=== PATIENT | female | born 1935 | race Caucasian/White ===

== ENCOUNTER 2022-10-28 12:27 | Emergency (ER) | payer MEDICARE, BC, SELFPAY ==
[2022-10-28] VITALS (12 sets, daily range): BP systolic 161–188; BP diastolic 92–96; PULSE 78–97; RESP 18; TEMP 36.4; O2SAT 93–99; BMI 31.6
--- NOTE | 2022-10-28 13:00 | PC.NURSE ---
pt to bathroom with via wheelchair, feeling pretty weak, attempted to obtain urine but pt had watery diarrhea. States she thinks the diarrhea may have started yesterday. Denies any discomfort, fevers or chills.
--- NOTE | 2022-10-28 13:18 | ED.GENADULT ---
HPI - General Adult General Chief complaint: Weakness Stated complaint: Lightheaded, weak Time Seen by Provider: 10/28/22 13:00 History of Present Illness HPI narrative: 87-year-old woman presenting to the emergency department with complaint of ?I just don't feel good?. She is maybe feeling a little lightheaded. Not dizzy. No headache. No fever. No shortness of breath. No abdominal pain. She has noticed to have diarrhea here and on further recollection she admits that will maybe that was going on since yesterday. She has been feeling generally unwell starting yesterday as well. No particular sick contacts. No recent antibiotics. Denies history of heart failure. She says her blood sugars been okay. No dysuria frequency urgency. Does apparently have a history of supraventricular tachycardia however has not been feeling irregular heartbeats or any chest pain. Related Data Home Medications Medication Instructions Recorded Confirmed amlodipine 2.5 mg tablet 2.5 mg PO 06/24/22 10/06/22 aspirin 81 mg tablet,delayed 81 mg PO QDAY 06/24/22 10/06/22 release glyburide 1.25 mg tablet 1.25 mg PO 06/24/22 10/06/22 levothyroxine 100 mcg tablet 100 mcg PO 06/24/22 10/06/22 memantine 5 mg tablet 5 mg PO 06/24/22 10/06/22 metformin 500 mg tablet,extended mg PO 06/24/22 10/06/22 release 24 hr [id number] 250 mg-dha 90 1 cap PO QAM 06/24/22 10/06/22 mg-epa 160 gu-ennt-szqf-zeax capsule (Ocuvite Adult 50 Plus) pravastatin 20 mg tablet 20 mg PO 06/24/22 10/06/22 Allergies Allergy/AdvReac Type Severity Reaction Status Date / Time hydrochlorothiazide AdvReac Headache Verified 10/06/22 15:53 Review of Systems Status of ROS: Reports: 6 or more systems reviewed and unremarkable except as noted in History and below [facility] Medical History Diverticulitis Right foot injury (~2003) Supraventricular tachycardia Thyroid cancer Surgical History H/O thyroidectomy History of carpal tunnel surgery of left wrist (~1990) History of carpal tunnel surgery of right wrist (~1988) Social History Smoking Status: Never smoker How often do you have a drink containing alcohol: monthly or less AUDIT-C Alcohol total score: 1 Non-prescribed substance use: denies use service: No Exam Narrative: Exam Narrative: Pleasant. NAD. Seems to be a little distracted. Maybe a little difficulty with recall. Cranial nerves 2-12 look to be intact. Moving all extremities without difficulty. Does appear a little tired. Well perfused peripherally. There is trace pretibial pitting edema. Lungs are clear. Is breathing easily. Heart with elevated rate appears to be in a regular rhythm. EKG noted though to have PACs. Oropharynx is moist. Abdomen overweight soft very active bowel sounds. Nontender. Not tympanitic. Const: Vital Signs, click to edit/add: Vital Signs - 24 hr 10/28/22 12:53 Temperature 97.6 F Pulse Rate [Pulse Oximeter] 95 Respiratory Rate 18 Blood Pressure [Ri ght Upper Arm] 161/96 H Pulse Oximetry 96 Oxygen Delivery Me thod Room Air Documenting provider has reviewed patient's vital signs: yes Course Vital Signs Vital signs: Initial Vital Signs Temperature 97.6 F 10/28/22 12:53 Temperature Source Temporal Artery Scan 10/28/22 12:53 Pulse Rate 95 10/28/22 12:53 Respiratory Rate 18 10/28/22 12:53 Blood Pressure 161/96 H 10/28/22 12:53 Blood Pressure Mean 117 10/28/22 12:53 Blood Pressure Position Supine 10/28/22 12:53 Pulse Oximetry 96 10/28/22 12:53 Oxygen Delivery Method 10/28/22 12:53 Vital Signs Temperature 97.6 F 10/28/22 12:53 Pulse Rate 95 10/28/22 12:53 Respiratory Rate 18 10/28/22 12:53 Blood Pressure 161/96 H 10/28/22 12:53 Pulse Oximetry 96 10/28/22 12:53 Oxygen Delivery Method 10/28/22 12:53 Temperature 97.6 F 10/28/22 12:53 Pulse Rate 97 10/28/22 15:06 Respiratory Rate 18 10/28/22 12:53 Blood Pressure 188/95 H 10/28/22 15:06 Pulse Oximetry 97 10/28/22 15:06 Oxygen Delivery Method 10/28/22 12:53 Medical Decision Making MDM Narrative Medical decision making narrative: She isn't reporting any hematochezia or melanotic stools. This diarrhea is evidence today might to be a reason for weakness representing some sort of viral process. Will be screening for this. Also check hemoglobin monitor on psychiatric technician assistant. Hydrate with IV fluids labs reassuring, unremarkable After IVF and period of observation in the ER seems more energetic and reports feeling much better. Lab Data Lab results reviewed: Yes I reviewed the patient's lab results Labs: Lab Results 10/28/22 10/28/22 10/28/22 Range/Units 13:08 13:45 13:45 WBC 11.19 H (4.50-11.00) K/uL RBC 4.40 (4.00-5.20) m/uL Hgb 13.6 (12.0-16.0) gm/dL Hct 40.6 (33.0-51.0) % MCV 92 (80-100) fL MCH 31 (26-34) pg MCHC 34 (32-36) gm/dL RDW Coeff of David 12.2 (11.5-15.5) % Plt Count 271 (140-440) K/uL Neut % (Auto) 69.4 (42.0-72.0) % Lymph % (Auto) 21.0 (20-44) % [place] % (Auto) 8.0 (0.0-11.0) % Eos % (Auto) 1.1 (0.0-7.0) % Baso % (Auto) 0.3 (0.0-3.0) % Neut # (Auto) 7.80 H (1.7-7.0) K/uL Lymph # (Auto) 2.30 (0.90-2.90) K/uL [place] # (Auto) 0.90 (0.00-0.90) K/UL Eos # (Auto) 0.10 (0.00-0.50) K/uL Baso # (Auto) 0.00 (0.00-0.30) K/uL Sodium (135-149) mmol/L Potassium (3.6-5.1) mmol/L Chloride (96-114) mmol/L Carbon Dioxide (20-32) mmol/L BUN (7-30) mg/dL Creatinine (0.5-1.5) mg/dL Estimated Creat Clear Estimated GFR ml/min Glucose (60-115) mg/dL Calcium (8.4-10.6) mg/dL Magnesium (1.5-2.6) mg/dL Total Bilirubin 1.1 (0.1-1.5) mg/dL Direct Bilirubin 0.1 (0.0-0.5) mg/dL AST 27 (12-35) U/L ALT 26 (4-35) U/L Alkaline Phosphatase 60 (40-150) U/L Troponin I (0.01-0.04) ng/mL C-Reactive Protein < 0.5 L (0.5-1.0) mg/dL NT-Pro-B Natriuret Pep pg/mL Total Protein 7.8 (6.0-8.3) g/dL Albumin 4.5 (3.3-5.0) g/dL TSH (0.270-4.20) uIU/mL Urine Color (Yellow) Urine Appearance (Clear) Urine pH (5.0-8.5) Ur Specific [place] (1.000-1.030) Urine Protein (Negative) Urine Glucose (UA) (Negative) Urine Ketones (Negative) Urine Blood (Negative) Urine Nitrite (Negative) Urine Bilirubin (Negative) Urine Urobilinogen (0.2-1.0) Ur Leukocyte Esterase (Negative) Urine RBC (0-2) Urine WBC (0-5) Ur Squamous Epith Cells (None-Few) Urine Bacteria (None) SARS-CoV-2 (PCR) Negative SARS-CoV-2 (Negative) Influenza Type A (PCR) Negative PCR FLU A (Negative) Influenza Type B (PCR) Negative PCR FLU B (Negative) RSV (PCR) Negative PCR RSV (Negative) POC Troponin I (0.01-0.04) ng/ml 10/28/22 10/28/22 10/28/22 Range/Units 13:45 13:45 14:00 WBC (4.50-11.00) K/uL RBC (4.00-5.20) m/uL Hgb (12.0-16.0) gm/dL Hct (33.0-51.0) % MCV (80-100) fL MCH (26-34) pg MCHC (32-36) gm/dL RDW Coeff of David (11.5-15.5) % Plt Count (140-440) K/uL Neut % (Auto) (42.0-72.0) % Lymph % (Auto) (20-44) % [place] % (Auto) (0.0-11.0) % Eos % (Auto) (0.0-7.0) % Baso % (Auto) (0.0-3.0) % Neut # (Auto) (1.7-7.0) K/uL Lymph # (Auto) (0.90-2.90) K/uL [place] # (Auto) (0.00-0.90) K/UL Eos # (Auto) (0.00-0.50) K/uL Baso # (Auto) (0.00-0.30) K/uL Sodium 135 (135-149) mmol/L Potassium 4.1 (3.6-5.1) mmol/L Chloride 100 (96-114) mmol/L Carbon Dioxide 28 (20-32) mmol/L BUN 21 (7-30) mg/dL Creatinine 0.6 (0.5-1.5) mg/dL Estimated Creat Clear 31.94 Estimated GFR 87 ml/min Glucose 157 H (60-115) mg/dL Calcium 9.7 (8.4-10.6) mg/dL Magnesium 1.7 (1.5-2.6) mg/dL Total Bilirubin (0.1-1.5) mg/dL Direct Bilirubin (0.0-0.5) mg/dL AST (12-35) U/L ALT (4-35) U/L Alkaline Phosphatase (40-150) U/L Troponin I < 0.01 L (0.01-0.04) ng/mL C-Reactive Protein (0.5-1.0) mg/dL NT-Pro-B Natriuret Pep 38 pg/mL Total Protein (6.0-8.3) g/dL Albumin (3.3-5.0) g/dL TSH 1.230 (0.270-4.20) uIU/mL Urine Color (Yellow) Urine Appearance (Clear) Urine pH (5.0-8.5) Ur Specific [place] (1.000-1.030) Urine Protein (Negative) Urine Glucose (UA) (Negative) Urine Ketones (Negative) Urine Blood (Negative) Urine Nitrite (Negative) Urine Bilirubin (Negative) Urine Urobilinogen (0.2-1.0) Ur Leukocyte Esterase (Negative) Urine RBC (0-2) Urine WBC (0-5) Ur Squamous Epith Cells (None-Few) Urine Bacteria (None) SARS-CoV-2 (PCR) (Negative) Influenza Type A (PCR) (Negative) Influenza Type B (PCR) (Negative) RSV (PCR) (Negative) POC Troponin I 0.00 L (0.01-0.04) ng/ml 10/28/22 Range/Units 15:00 WBC (4.50-11.00) K/uL RBC (4.00-5.20) m/uL Hgb (12.0-16.0) gm/dL Hct (33.0-51.0) % MCV (80-100) fL MCH (26-34) pg MCHC (32-36) gm/dL RDW Coeff of David (11.5-15.5) % Plt Count (140-440) K/uL Neut % (Auto) (42.0-72.0) % Lymph % (Auto) (20-44) % [place] % (Auto) (0.0-11.0) % Eos % (Auto) (0.0-7.0) % Baso % (Auto) (0.0-3.0) % Neut # (Auto) (1.7-7.0) K/uL Lymph # (Auto) (0.90-2.90) K/uL [place] # (Auto) (0.00-0.90) K/UL Eos # (Auto) (0.00-0.50) K/uL Baso # (Auto) (0.00-0.30) K/uL Sodium (135-149) mmol/L Potassium (3.6-5.1) mmol/L Chloride (96-114) mmol/L Carbon Dioxide (20-32) mmol/L BUN (7-30) mg/dL Creatinine (0.5-1.5) mg/dL Estimated Creat Clear Estimated GFR ml/min Glucose (60-115) mg/dL Calcium (8.4-10.6) mg/dL Magnesium (1.5-2.6) mg/dL Total Bilirubin (0.1-1.5) mg/dL Direct Bilirubin (0.0-0.5) mg/dL AST (12-35) U/L ALT (4-35) U/L Alkaline Phosphatase (40-150) U/L Troponin I (0.01-0.04) ng/mL C-Reactive Protein (0.5-1.0) mg/dL NT-Pro-B Natriuret Pep pg/mL Total Protein (6.0-8.3) g/dL Albumin (3.3-5.0) g/dL TSH (0.270-4.20) uIU/mL Urine Color Yellow (Yellow) Urine Appearance Clear (Clear) Urine pH 6.5 (5.0-8.5) Ur Specific [place] 1.015 (1.000-1.030) Urine Protein Negative (Negative) Urine Glucose (UA) Negative (Negative) Urine Ketones Negative (Negative) Urine Blood Negative (Negative) Urine Nitrite Negative (Negative) Urine Bilirubin Negative (Negative) Urine Urobilinogen 0.2 (0.2-1.0) Ur Leukocyte Esterase Negative (Negative) Urine RBC 0-2 (0-2) Urine WBC 0-2 (0-5) Ur Squamous Epith Cells None (None-Few) Urine Bacteria None (None) SARS-CoV-2 (PCR) (Negative) Influenza Type A (PCR) (Negative) Influenza Type B (PCR) (Negative) RSV (PCR) (Negative) POC Troponin I (0.01-0.04) ng/ml ECG Data Attestation: I personally reviewed and interpreted this ECG as follows: (Sinus rhythm at a rate of 88. PACs are evident ) Discharge Plan Discharge Clinical Impression: Malaise, Dehydration, Enteritis Patient Disposition: Home w/ Parent or Adult Condition: Improved Additional Instructions: You do seem to have much more energy now. This may be because you were a little dehydrated. Focus on hydration. Might want to have more of liquid diet over the next 24-36 hours. Diluted juices, soup broths then to thicker soups and smoothies maybe rice. [place]. Return for increasing weakness, associated fever, chest pain, shortness of breath, increasing abdominal pain, intractable diarrhea. Prescriptions: No Action levothyroxine 100 mcg tablet 100 mcg PO glyburide 1.25 mg tablet 1.25 mg PO amlodipine 2.5 mg tablet 2.5 mg PO metformin 500 mg tablet extended release 24 hr PO pravastatin 20 mg tablet 20 mg PO Ocuvite Adult 50 Plus 250 mg (90 mg-160 mg) capsule 1 cap PO QAM memantine 5 mg tablet 5 mg PO aspirin 81 mg tablet,delayed release (DR/EC) 81 mg PO QDAY Follow Up/Referrals: Marcia Campa DO [Primary Care Provider] - Stand Alone [facility] Inst[facility]
[2022-10-28 13:53] LABS: Basophils Percent Auto 0.3 % (0.0-3.0); Eosinophils Percent Auto 1.1 % (0.0-7.0); Hematocrit 40.6 % (33.0-51.0); Hemoglobin* 13.6 gm/dL (12.0-16.0); Immature Granulocytes Pct Auto 0.2 %; Mean Corpuscular HGB Conc 34 gm/dL (32-36); Mean Corpuscular Hemoglobin 31 pg (26-34); Mean Corpuscular Volume 92 fL (80-100); Neutrophils Percent Auto 69.4 % (42.0-72.0); Platelet Count* 271 K/uL (140-440); RDW Coefficient of Variation % 12.2 % (11.5-15.5); White Blood Count* 11.19 K/uL (4.50-11.00)
[2022-10-28] MEDS: 0.9 % SODIUM CHLORIDE 1000 ml 1,000 ML IV (13:58)
[2022-10-28 14:02] LABS: PCR FLU A Negative PCR FLU A (Negative); PCR FLU B Negative PCR FLU B (Negative); PCR RSV Negative PCR RSV (Negative)
[2022-10-28 14:09] LABS: Slide Review Reflex No
[2022-10-28 14:13] LABS: SARS PCR* Negative SARS-CoV-2 (Negative)
[2022-10-28 14:30] LABS: Albumin* 4.5 g/dL (3.3-5.0); Chloride* 100 mmol/L (96-114); Sodium* 135 mmol/L (135-149)
[2022-10-28 14:31] LABS: Potassium* 4.1 mmol/L (3.6-5.1)
[2022-10-28 14:33] LABS: Alanine Aminotransferase* 26 U/L (4-35); Alkaline Phosphatase* 60 U/L (40-150); Aspartate Amino Transferase* 27 U/L (12-35); Bilirubin Direct* 0.1 mg/dL (0.0-0.5); Bilirubin Total* 1.1 mg/dL (0.1-1.5); Creatinine* 0.6 mg/dL (0.5-1.5); Est. Creatinine Clearance* 31.94; Estimated Glomerular Filt Rate 87 ml/min; Total Protein* 7.8 g/dL (6.0-8.3)
[2022-10-28 14:34] LABS: Blood Urea Nitrogen* 21 mg/dL (7-30); Calcium* 9.7 mg/dL (8.4-10.6); Carbon Dioxide* 28 mmol/L (20-32); Glucose* 157 mg/dL (60-115); Magnesium* 1.7 mg/dL (1.5-2.6)
[2022-10-28 14:36] LABS: C Reactive Protein* < 0.5 mg/dL (0.5-1.0)
[2022-10-28 14:41] LABS: NT Pro B Type NatriureticPept* 38 pg/mL
[2022-10-28 14:42] LABS: Troponin I* < 0.01 ng/mL (0.01-0.04)
--- NOTE | 2022-10-28 14:49 | ED.NURSE ---
Updated resident's daughter, Diana, regarding her visit and complaints of weakness per request of patient. Diana appreciated the phone call. Will call her after final work up and recommendations are made. Diana will update her brother to see if he can check in or stay with her if she were to discharge home. Short term memory loss noted is her baseline.
[2022-10-28 15:11] LABS: Appearance Urine Clear (Clear); Bilirubin Urine Negative (Negative); Blood Urine Negative (Negative); Color Urine Yellow (Yellow); Glucose Urine Negative (Negative); Ketones Urine Negative (Negative); Leukocyte Esterase Urine Negative (Negative); Nitrite Urine Negative (Negative); Protein Urine Negative (Negative); Specific Gravity Urine 1.015 (1.000-1.030); Urobilinogen Urine 0.2 (0.2-1.0); pH Urine 6.5 (5.0-8.5)
[2022-10-28 16:07] LABS: RBC Urine 0-2 (0-2); WBC Urine 0-2 (0-5)
== END 2022-10-28 17:07 | disposition home or self-care (01) ==
PROVIDERS: Emergency Provider Family Medicine; PCP Family Medicine
DX: R53.81 Other malaise (principal); E86.0 Dehydration; K52.9 Noninfective gastroenteritis and colitis, unspecified
CPT/HCPCS: 36415; 80048; 80076; 81001; 83735; 83880; 84443; 84484; 85025; 86140; 87502; 87634; 87635; 93005; 94761; 96360; 99284; J7030

== ENCOUNTER 2022-12-23 10:34 | Emergency (ER) | payer MEDICARE, BC, SELFPAY ==
[2022-12-23] VITALS (14 sets, daily range): BP systolic 136–150; BP diastolic 76–82; PULSE 63–95; RESP 18; TEMP 36.7; O2SAT 92–96; BMI 32.0
--- NOTE | 2022-12-23 11:16 | CRLHL7_ITS ---
For Patients: As a result of the Century Cures Act, medical imaging exams and procedure reports are released immediately into your electronic medical record. You may view this report before your referring provider. If you have questions, please contact your health care provider. INDICATION: Cough TECHNIQUE: Chest 2 views. COMPARISON: 06/09/2013 FINDINGS: Cardiovascular and mediastinum: Heart size and vasculature are normal in caliber and appearance. Mediastinum is within normal limits. Lungs and pleural spaces: Lungs are clear. No sign of infiltrate or mass. No sign of pleural effusion. No pneumothorax. Bones and soft tissues: Degenerative changes thoracic spine. IMPRESSION: No evidence for pneumonia. Dictated by Danilo Linton MD @ 12/23/2022 11:43:33 AM Dictated by: Danilo Linton MD @ 12/23/2022 11:43:39 (Electronically Signed)
--- NOTE | 2022-12-23 11:16 | ED.GENADULT ---
HPI - General Adult General Chief complaint: Weakness Stated complaint: congestive heart failure - was on the way to dr Time Seen by Provider: 12/23/22 10:55 History of Present Illness HPI narrative: This 87-year-old female comes in with her daughter reporting increased fatigue over the past 4-6 days or so. Her daughter states that she gets short of breath but the patient herself denies this. She did have a clinic appointment and was told that her white count was elevated. She was placed on Levaquin with suspicion of respiratory infection and/or urinary tract infection. Her urinalysis culture returned negative. The chest x-ray report did not show any sign of pneumonia but there was a suspicion of an enlarged heart. She was coming for a follow-up appointment in the clinic to evaluate for congestive heart failure when she again felt fatigued and a brief episode of lightheadedness. She denies having any pain. She does not report any fevers. She does have a cough. She does not describe any orthopnea symptoms. Related Data Home Medications Medication Instructions Recorded Confirmed amlodipine 2.5 mg tablet 2.5 mg PO 06/24/22 10/06/22 aspirin 81 mg tablet,delayed 81 mg PO QDAY 06/24/22 10/06/22 release glyburide 1.25 mg tablet 1.25 mg PO 06/24/22 10/06/22 levothyroxine 100 mcg tablet 100 mcg PO 06/24/22 10/06/22 memantine 5 mg tablet 5 mg PO 06/24/22 10/06/22 metformin 500 mg tablet,extended mg PO 06/24/22 10/06/22 release 24 hr pewlsaeq-bzo-lvpil5 250 mg-dha 90 1 cap PO QAM 06/24/22 10/06/22 mg-epa 160 fi-sfhg-mssh-zeax capsule (Ocuvite Adult 50 Plus) pravastatin 20 mg tablet 20 mg PO 06/24/22 10/06/22 Previous Rx's Medication Instructions Recorded acetaminophen 300 mg-codeine 30 mg 1 tab PO Q6H PRN pain #10 tabs 12/23/22 tablet Allergies Allergy/AdvReac Type Severity Reaction Status Date / Time hydrochlorothiazide AdvReac Headache Verified 12/23/22 10:50 Review of Systems Status of ROS: Reports: 10 or more systems reviewed and unremarkable except as noted in History and below Narrative: Constitutional: No fevers, no weight gain or loss. Generalized fatigue. Eyes: No discharge. No vision changes. HENT: No congestion, no sore throat, no ear pain. Cardiovascular: No chest pain, no palpitations. Respiratory: No shortness of breath, no wheezes . She reports a cough. Gastrointestinal: No abdominal pain, no vomiting, no diarrhea. Genitourinary: No dysuria, no hematuria. Musculoskeletal: Normal range of motion. Skin: No rashes, no pruritis. Neurological: No dizziness, weakness, sensory change, speech change. Endo/Heme/Allergies: No bruising or bleeding. No polydipsia. Pysch: no suicidality, no anxiety, no insomnia. All other systems reviewed and are negative. [facility] Medical History Diverticulitis Right foot injury (~2003) Supraventricular tachycardia Thyroid cancer Surgical History H/O thyroidectomy History of carpal tunnel surgery of left wrist (~1990) History of carpal tunnel surgery of right wrist (~1988) Social History Smoking Status: Never smoker How often do you have a drink containing alcohol: monthly or less AUDIT-C Alcohol total score: 1 Non-prescribed substance use: denies use service: No Exam Narrative: Exam Narrative: Constitutional: Well-developed, well-nourished, no acute distress. HEENT: Normocephalic, atraumatic. Neck: Normal range of motion. Nontender. Supple. Heart: Regular. No murmurs. Normal rate. Intact distal pulses. Lungs: Clear to auscultation. No chest discomfort. No wheezes, rhonchi, or rales. Abdomen: Normal bowel sounds. Nontender. No rebound tenderness. Genitalia: Deferred. Back: No midline tenderness. Normal range of motion. Extremities: Normal range of motion. No injury. No pedal edema. Skin: Intact. No rash. Warm. No erythema or pallor. Neurologic: No altered sensation. No weakness. Alert and oriented. Psychiatric: No suicidality. No anxiety or depression. No insomnia. Nursing notes and vitals signs are reviewed. Const: Vital Signs, click to edit/add: Vital Signs - 24 hr 12/23/22 10:51 12/23/22 10:50 12/23/22 10:54 Temperature 98.1 F Pulse Rate 78 75 Pulse Rate [Pulse Oximeter] 95 Respiratory Rate 18 Blood Pressure 136/77 Pulse Oximetry 94 94 95 Oxygen Delivery Me thod Room Air 12/23/22 11:01 12/23/22 11:44 12/23/22 11:46 Temperature Pulse Rate 71 71 70 Pulse Rate [Pulse Oximeter] Respiratory Rate Blood Pressure 142/82 H Pulse Oximetry 96 96 95 Oxygen Delivery Me thod 12/23/22 11:46 12/23/22 12:01 12/23/22 12:01 Temperature Pulse Rate 68 67 77 Pulse Rate [Pulse Oximeter] Respiratory Rate Blood Pressure 150/76 H Pulse Oximetry 95 95 94 Oxygen Delivery Me thod 12/23/22 12:15 12/23/22 12:30 12/23/22 12:33 Temperature Pulse Rate 65 67 68 Pulse Rate [Pulse Oximeter] Respiratory Rate Blood Pressure 144/79 H Pulse Oximetry 94 94 94 Oxygen Delivery Me thod 12/23/22 12:45 12/23/22 13:00 12/23/22 13:02 Temperature Pulse Rate 65 68 69 Pulse Rate [Pulse Oximeter] Respiratory Rate Blood Pressure 146/82 H Pulse Oximetry 92 93 95 Oxygen Delivery Me thod 12/23/22 13:15 Temperature Pulse Rate 63 Pulse Rate [Pulse Oximeter] Respiratory Rate Blood Pressure Pulse Oximetry 93 Oxygen Delivery Me thod Course Vital Signs Vital signs: Initial Vital Signs Pulse Rate 78 12/23/22 10:50 Pulse Oximetry 94 12/23/22 10:50 Vital Signs Pulse Rate 78 12/23/22 10:50 Pulse Oximetry 94 12/23/22 10:50 Temperature 98.1 F 12/23/22 10:51 Pulse Rate 63 12/23/22 13:15 Respiratory Rate 18 12/23/22 10:51 Blood Pressure 146/82 H 12/23/22 13:02 Pulse Oximetry 93 12/23/22 13:15 Oxygen Delivery Method Room Air 12/23/22 10:51 Medical Decision Making MDM Narrative Medical decision making narrative: This patient is reporting some generalized fatigue and did have a brief lightheadedness episode prior to arrival today. She has concerns that she might have congestive heart failure because a chest x-ray had some comment of possible enlarged heart. She does not have any pedal edema. Her chest x-ray is completely normal today. Additionally her B type natriuretic peptide returns at 36. EKG does show some sinus dysrhythmia. This may have contributed toward some lightheadedness feeling. She does have a frequent cough but her nasal swab is negative as is her chest x-ray for pneumonia, COVID, or influenza. Other lab results are within normal range except for a slightly low sodium at 132. At the time of discharge the patient appears safe for outpatient management. The treatment plan is reviewed along with written and verbal return precautions. Reasons to return and the importance of close followup were also reviewed. I did provide a prescription for Tylenol 3 to be used as needed for cough suppression. I recommended that she discontinue her Levaquin as her chest x-ray and white blood cell count along with vital signs are in normal range. Lab Data Labs: Lab Results 12/23/22 12/23/22 12/23/22 Range/Units 11:15 11:30 11:40 WBC 8.05 (4.50-11.00) K/uL RBC 4.22 (4.00-5.20) m/uL Hgb 13.1 (12.0-16.0) gm/dL Hct 38.4 (33.0-51.0) % MCV 91 (80-100) fL MCH 31 (26-34) pg MCHC 34 (32-36) gm/dL RDW Coeff of David 12.4 (11.5-15.5) % Plt Count 259 (140-440) K/uL Neut % (Auto) 63.4 (42.0-72.0) % Lymph % (Auto) 22.2 (20-44) % [place] % (Auto) 10.7 (0.0-11.0) % Eos % (Auto) 3.4 (0.0-7.0) % Baso % (Auto) 0.2 (0.0-3.0) % Neut # (Auto) 5.10 (1.7-7.0) K/uL Lymph # (Auto) 1.79 (0.90-2.90) K/uL Brown # (Auto) 0.90 (0.00-0.90) K/UL Eos # (Auto) 0.27 (0.00-0.50) K/uL Baso # (Auto) 0.02 (0.00-0.30) K/uL Sodium 132 L (135-149) mmol/L Potassium 3.9 (3.6-5.1) mmol/L Chloride 99 (96-114) mmol/L Carbon Dioxide 24 (20-32) mmol/L BUN 14 (7-30) mg/dL Creatinine 0.7 (0.5-1.5) mg/dL Estimated Creat Clear 31.94 Estimated GFR 84 ml/min Glucose 246 H (60-115) mg/dL Calcium 8.6 (8.4-10.6) mg/dL NT-Pro-B Natriuret Pep 36 pg/mL SARS-CoV-2 (PCR) Negative SARS-CoV-2 (Negative) Influenza Type A (PCR) Negative PCR FLU A (Negative) Influenza Type B (PCR) Negative PCR FLU B (Negative) RSV (PCR) Negative PCR RSV (Negative) POC Troponin I 0.00 L (0.01-0.04) ng/ml Imaging Data Chest x-ray: Radiologist's impression: No evidence for pneumonia. ECG Data Attestation: I personally reviewed and interpreted this ECG as follows: Interpretation: Sinus rhythm with marked sinus arrhythmia. Rate is 68 beats per minute. There are no specific ST or T-wave abnormalities. Discharge Plan Discharge Clinical Impression: Acute upper respiratory infection Patient Disposition: Home, Self-Care Condition: Stable Additional Instructions: Discontinue Levaquin. Follow up with MD or return if worsening symptoms happen. Prescriptions: New acetaminophen-codeine 300-30 mg tablet 1 tab PO Q6H PRN (Reason: pain) Qty: 10 0RF No Action levothyroxine 100 mcg tablet 100 mcg PO glyburide 1.25 mg tablet 1.25 mg PO amlodipine 2.5 mg tablet 2.5 mg PO metformin 500 mg tablet extended release 24 hr PO pravastatin 20 mg tablet 20 mg PO Ocuvite Adult 50 Plus 250 mg (90 mg-160 mg) capsule 1 cap PO QAM memantine 5 mg tablet 5 mg PO aspirin 81 mg tablet,delayed release (DR/EC) 81 mg PO QDAY Follow Up/Referrals: Marcia Campa DO [Primary Care Provider] - Stand Alone Forms: [facility] Info Instructions
[2022-12-23 11:42] LABS: Basophils Absolute Auto 0.02 K/uL (0.00-0.30); Basophils Percent Auto 0.2 % (0.0-3.0); Eosinophils Absolute Auto 0.27 K/uL (0.00-0.50); Eosinophils Percent Auto 3.4 % (0.0-7.0); Hematocrit 38.4 % (33.0-51.0); Hemoglobin* 13.1 gm/dL (12.0-16.0); Immature Granulocytes Abs Auto 0.01 K/uL (0.00-0.30); Immature Granulocytes Pct Auto 0.1 %; Lymphocytes Absolute Auto 1.79 K/uL (0.90-2.90); Lymphocytes Percent Auto 22.2 % (20-44); Mean Corpuscular HGB Conc 34 gm/dL (32-36); Mean Corpuscular Hemoglobin 31 pg (26-34); Mean Corpuscular Volume 91 fL (80-100); Monocytes Percent Auto 10.7 % (0.0-11.0); Neutrophils Percent Auto 63.4 % (42.0-72.0); Platelet Count* 259 K/uL (140-440); RDW Coefficient of Variation % 12.4 % (11.5-15.5); Red Blood Count 4.22 m/uL (4.00-5.20); White Blood Count* 8.05 K/uL (4.50-11.00)
[2022-12-23 11:46] LABS: Slide Review Reflex No
[2022-12-23 11:54] LABS: Chloride* 99 mmol/L (96-114)
[2022-12-23 11:55] LABS: Potassium* 3.9 mmol/L (3.6-5.1); Sodium* 132 mmol/L (135-149)
[2022-12-23 11:57] LABS: Creatinine* 0.7 mg/dL (0.5-1.5); Est. Creatinine Clearance* 31.94; Estimated Glomerular Filt Rate 84 ml/min
[2022-12-23 11:58] LABS: Blood Urea Nitrogen* 14 mg/dL (7-30); Calcium* 8.6 mg/dL (8.4-10.6); Carbon Dioxide* 24 mmol/L (20-32); Glucose* 246 mg/dL (60-115)
[2022-12-23 12:17] LABS: NT Pro B Type NatriureticPept* 36 pg/mL
[2022-12-23 12:56] LABS: PCR FLU A Negative PCR FLU A (Negative); PCR FLU B Negative PCR FLU B (Negative); PCR RSV Negative PCR RSV (Negative)
[2022-12-23 13:19] LABS: SARS PCR* Negative SARS-CoV-2 (Negative)
== END 2022-12-23 14:16 | disposition home or self-care (01) ==
PROVIDERS: Emergency Provider Emergency Medicine Emergency Medical Services; PCP Family Medicine
DX: J06.9 Acute upper respiratory infection, unspecified (principal)
CPT/HCPCS: 36415; 71046; 80048; 83880; 84484; 85025; 87631; 93005; 99283; 99284

== ENCOUNTER 2023-09-11 20:52 | Emergency (ER) | payer MEDICARE, BC, SELFPAY ==
[2023-09-11 21:18] VITALS: PULSE 98; RESP 18; TEMP 36.4; O2SAT 99; BMI 37.9
--- NOTE | 2023-09-11 21:19 | ED_ITS ---
HPI - Syncope General Time Seen by Provider: 21:20 <Lori Leo MD - Last Filed: 09/12/23 00:24> Date Seen: 09/11/23 <Lori Leo MD - Last Filed: 09/12/23 00:24> Chief Complaint: Syncope/Fainted <Lori Leo MD - Last Filed: 09/12/23 00:24> Stated Complaint: Heart racing, heart hurts <Lori Leo MD - Last Filed: 09/12/23 00:24> Time Seen by Provider: 09/11/23 21:09 <Lori Leo MD - Last Filed: 09/12/23 00:24> Source: patient, family and RN notes reviewed <Lori Leo MD - Last Filed: 09/12/23 00:24> Mode of arrival: ambulatory <Lori Leo MD - Last Filed: 09/12/23 00:24> Limitations: no limitations <Lori Leo MD - Last Filed: 09/12/23 00:24> History of Present Illness HPI narrative: This 88-year-old female is brought in by her daughter for syncopal episode. They were just sitting eating at the dinner table and she slumped forward. She was not responding to her but was noted to still be breathing. She was out under a minute, daughter noted that she was still breathing however. When she came to, she was complaining of her heart racing. Her daughter did feel her chest and felt like it was racing. They went to get her to lie down in bed as she was requesting this. She then had to go to the bathroom, took her to the toilet and she thought she was going to pass out again. She can not tell me if she has had a history of arrhythmias. She does describe her doctor telling her to do some deep breathing. She does note she had some neck stiffness/pain today, no trauma. She thinks she maybe slept wrong. She tonight she was going to put some heat on it at bedtime. She has no pain right now, heart is not racing right now and indeed she is in sinus rhythm on the monitor. She is not short of breath. She really does not remember any prodrome symptoms that she was going to pass out. She is seen at [facility] in [place]. She states she had COVID at Thanksgiving time, did take Paxlovid. Her daughter reports that she was quite symptomatic to start with, had good recovery on the medicine. <Lori Leo MD - Last Filed: 09/12/23 00:24> MD complaint: loss of consciousness <Lori Leo MD - Last Filed: 09/12/23 00:24> Related Data Home Medications: Home Medications Medication Instructions Recorded Confirmed amlodipine 2.5 mg tablet 2.5 mg PO 06/24/22 06/25/23 aspirin 81 mg tablet,delayed 81 mg PO QDAY 06/24/22 06/25/23 release glyburide 1.25 mg tablet 1.25 mg PO 06/24/22 06/25/23 levothyroxine 100 mcg tablet 100 mcg PO 06/24/22 06/25/23 memantine 5 mg tablet 5 mg PO 06/24/22 03/04/23 [id number] 250 mg-dha 90 1 cap PO QAM 06/24/22 06/25/23 mg-epa 160 [id number] capsule (Ocuvite Adult 50 Plus) pravastatin 20 mg tablet 20 mg PO 06/24/22 06/25/23 <Lori Leo MD - Last Filed: 09/12/23 00:24> Allergies/Adverse Reactions: Allergies Allergy/AdvReac Type Severity Reaction Status Date / Time hydrochlorothiazide AdvReac Headache Verified 06/25/23 10:15 <Lori Leo MD - Last Filed: 09/12/23 00:24> Review of Systems Status of ROS: Reports: 6 or more systems reviewed and unremarkable except as noted in History and below <Lori Leo MD - Last Filed: 09/12/23 00:24> [facility] Medical History: Medical History Memory loss ?R41.3 - Other amnesia (ICD-10) Supraventricular tachycardia ?I47.1 - Supraventricular tachycardia (ICD-10) Thyroid cancer ?C73 - Malignant neoplasm of thyroid gland (ICD-10) Right foot injury (~2003) ?S99.921A - Unspecified injury of right foot, initial encounter (ICD-10) Diverticulitis ?K57.92 - Diverticulitis of intestine, part unspecified, without perforation or abscess without bleeding (ICD-10) <Lori Leo MD - Last Filed: 09/12/23 00:24> Surgical History: Surgical History H/O 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) History of carpal tunnel surgery of left wrist (~1990) ?Z98.890 - Other specified postprocedural states (ICD-10) History of carpal tunnel surgery of right wrist (~1988) ?Z98.890 - Other specified postprocedural states (ICD-10) <Lori Leo MD - Last Filed: 09/12/23 00:24> Social History: Social History Smoking Status: Never smoker How often do you have a drink containing alcohol: monthly or less AUDIT-C Alcohol total score: 1 Non-prescribed substance use: denies use service: No <Lori Leo MD - Last Filed: 09/12/23 00:24> Exam Const: Vital Signs, click to edit/add: Vital Signs - 24 hr 09/11/23 21:18 09/11/23 21:24 09/11/23 23:29 Temperature 97.5 F L Pulse Rate 68 Pulse Rate [Pulse Oximeter] 98 Respiratory Rate 18 Blood Pressure Pulse Oximetry 99 95 94 Oxygen Delivery Me thod Room Air 09/11/23 23:30 09/11/23 23:31 09/11/23 23:45 Temperature Pulse Rate 62 67 77 Pulse Rate [Pulse Oximeter] Respiratory Rate Blood Pressure 149/76 H Pulse Oximetry 95 95 93 Oxygen Delivery Me thod 09/12/23 00:00 09/12/23 00:02 09/12/23 00:15 Temperature Pulse Rate 74 66 64 Pulse Rate [Pulse Oximeter] Respiratory Rate Blood Pressure 161/95 H Pulse Oximetry 96 92 95 Oxygen Delivery Me thod This patient is alert, interactive. Initially she did have her eyes closed but speech is normal, she converses easily with me. Pupils equal round, sclera clear, symmetrical facial function. Follows commands with her upper extremities and lower extremities, exam is nonfocal. Oropharynx normal. Neck supple, she is lying flat, no cervical adenopathy. Lungs are clear, good air entry. CV regular rate and rhythm, no murmur, normal S1-S2, no S3-S4. Abdomen is soft, no rebound or guarding, no organomegaly. She has chronically thickened ankles, states this is stable for her. No overlying acute skin changes. <Lori Leo MD - Last Filed: 09/12/23 00:24> Vital Signs, click to edit/add: Vital Signs - 24 hr 09/11/23 21:18 09/11/23 21:24 09/11/23 23:29 Temperature 97.5 F L Pulse Rate 68 Pulse Rate [Pulse Oximeter] 98 Respiratory Rate 18 Blood Pressure Pulse Oximetry 99 95 94 Oxygen Delivery Me thod Room Air 09/11/23 23:30 09/11/23 23:31 09/11/23 23:45 Temperature Pulse Rate 62 67 77 Pulse Rate [Pulse Oximeter] Respiratory Rate Blood Pressure 149/76 H Pulse Oximetry 95 95 93 Oxygen Delivery Me thod 09/12/23 00:00 09/12/23 00:02 09/12/23 00:15 Temperature Pulse Rate 74 66 64 Pulse Rate [Pulse Oximeter] Respiratory Rate Blood Pressure 161/95 H Pulse Oximetry 96 92 95 Oxygen Delivery Me thod <Danilo Bardales MD - Last Filed: 10/05/23 12:19> Documenting provider has reviewed patient's vital signs: yes <Lori Leo MD - Last Filed: 09/12/23 00:24> Course Course ED Course: Currently her cardiac monitoring shows normal sinus rhythm. She talked about a breathing exercise her doctor told her to do when she was feeling this way, when asked if she had SVT or supraventricular tachycardia, her daughter inpatient really had no idea what that was. 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 Will do appropriate lab work. Her syncope does not suggest any neurologic disorder such as an acute stroke, she has nonfocal neurologic examination. Thus, I a.m. not doing a head CT and less we see something change with her status here. Will do a D-dimer, patient did have COVID about a month ago. She is hypertensive and not hypoxic which does not support theory of pulmonary emboli. Nonetheless, will await a D-dimer, will have her on pulse oximetry and cardiac monitoring. <Lori Leo MD - Last Filed: 09/12/23 00:24> Reevaluation(s) Time of Reevaluation #1: 21:51 <Lori Leo MD - Last Filed: 09/12/23 00:24> Reevaluation #1: Reviewed with patient and her daughter that we are finding documentation of paroxysmal supraventricular tachycardia in her chart. I do not see further documentation Holter monitor, echo, anything specific about this. Patient has no recollection, is noted to have memory issues. Her daughter was unaware of this. Patient states that this time she is feeling better in it is time to go home. Reviewed with him that we do need her to wait, have labs pending, will start with a portable chest x-ray. <Lori Leo MD - Last Filed: 09/12/23 00:24> Time of Reevaluation #2: 22:21 <Lori Leo MD - Last Filed: 09/12/23 00:24> Reevaluation #2: Patient was advised that her D-dimer was elevated, this was explained to her and her daughter. She will be having chest CT PE protocol. Will try to cancel chest x-ray with Radiology if it has not been done. She is feeling better, sitting up in a chair, just went to the bathroom. Her daughter asked if the chest CT was normal, next steps. We will continue to monitor her on cardiac monitoring while here. If chest CT is negative and there are no other concerning labs, will likely make recommendations to follow up in clinic and have ZIO patch placed to see the overall burden of her SVT, any other possible arrythmia. <Lori Leo MD - Last Filed: 09/12/23 00:24> Vital Signs Vital signs: Initial Vital Signs Temperature 97.5 F L 09/11/23 21:18 Temperature Source Temporal Artery Scan 09/11/23 21:18 Pulse Rate 98 09/11/23 21:18 Respiratory Rate 18 09/11/23 21:18 Blood Pressure Position Supine 09/11/23 21:18 Pulse Oximetry 99 09/11/23 21:18 Oxygen Delivery Method Room Air 09/11/23 21:18 Vital Signs Temperature 97.5 F L 09/11/23 21:18 Pulse Rate 98 09/11/23 21:18 Respiratory Rate 18 09/11/23 21:18 Pulse Oximetry 99 09/11/23 21:18 Oxygen Delivery Method Room Air 09/11/23 21:18 Temperature 97.5 F L 09/11/23 21:18 Pulse Rate 64 09/12/23 00:15 Respiratory Rate 18 09/11/23 21:18 Blood Pressure 161/95 H 09/12/23 00:02 Pulse Oximetry 95 09/12/23 00:15 Oxygen Delivery Method Room Air 09/11/23 21:18 <Lori Leo MD - Last Filed: 09/12/23 00:24> Initial Vital Signs Temperature 97.5 F L 09/11/23 21:18 Temperature Source Temporal Artery Scan 09/11/23 21:18 Pulse Rate 98 09/11/23 21:18 Respiratory Rate 18 09/11/23 21:18 Blood Pressure Position Supine 09/11/23 21:18 Pulse Oximetry 99 09/11/23 21:18 Oxygen Delivery Method Room Air 09/11/23 21:18 Vital Signs Temperature 97.5 F L 09/11/23 21:18 Pulse Rate 98 09/11/23 21:18 Respiratory Rate 18 09/11/23 21:18 Pulse Oximetry 99 09/11/23 21:18 Oxygen Delivery Method Room Air 09/11/23 21:18 Temperature 97.5 F L 09/11/23 21:18 Pulse Rate 64 09/12/23 00:15 Respiratory Rate 18 09/11/23 21:18 Blood Pressure 161/95 H 09/12/23 00:02 Pulse Oximetry 95 09/12/23 00:15 Oxygen Delivery Method Room Air 09/11/23 21:18 <Danilo Bardales MD - Last Filed: 10/05/23 12:19> MDM - Syncope MDM Narrative Medical decision making narrative: INDICATION: . Syncope, elevated d dimer, covid 1 mo ago TECHNIQUE: CT chest PE was acquired with 95 cc Isovue 370 IV contrast. COMPARISON: None FINDINGS: Pulmonary Arteries: No CT evidence of pulmonary thromboembolic disease. No pulmonary hypertension or right ventricular strain. Heart and Mediastinum: Thyroidectomy versus atrophic thyroid. No axillary or supraclavicular lymphadenopathy. No mediastinal, hilar or retrocrural lymphadenopathy. Normal heart size. Normal caliber aorta. Atherosclerotic calcifications. Lungs and Airways: No mass or consolidation. No endoluminal lesion. Pleura: The pleural spaces are normal. Abdomen: Left hepatic lobe simple attenuation focus, statistically a cyst. Retained contrast versus higher density urine in the renal collecting systems. Colonic diverticulosis. Duodenal diverticuli. 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 Bones and soft tissues: Age indeterminate likely old compression fracture of L1. IMPRESSION: 1. No CT evidence of pulmonary thromboembolic disease. 2. No intrathoracic mass or consolidation. <Danilo Bardales MD - Last Filed: 10/05/23 12:19> Lab Data Attestation: I reviewed the patient's lab results. <Lori Leo MD - Last Filed: 09/12/23 00:24> Labs: Lab Results 09/11/23 09/12/23 Range/Units 21:10 00:34 WBC 10.94 (4.50-11.00) K/uL RBC 4.28 (4.00-5.20) m/uL Hgb 13.2 (12.0-16.0) gm/dL Hct 39.4 (33.0-51.0) % MCV 92 (80-100) fL MCH 31 (26-34) pg MCHC 34 (32-36) gm/dL RDW Coeff of David 12.9 (11.5-15.5) % Plt Count 297 (140-440) K/uL Neut % (Auto) 63.1 (42.0-72.0) % Lymph % (Auto) 25.9 (20-44) % [place] % (Auto) 8.6 (0.0-11.0) % Eos % (Auto) 1.8 (0.0-7.0) % Baso % (Auto) 0.3 (0.0-3.0) % Neut # (Auto) 6.91 (1.7-7.0) K/uL Lymph # (Auto) 2.83 (0.90-2.90) K/uL [place] # (Auto) 0.90 (0.00-0.90) K/UL Eos # (Auto) 0.20 (0.00-0.50) K/uL Baso # (Auto) 0.03 (0.00-0.30) K/uL Abs Immat Gran (auto) 0.03 (0.00-0.30) K/uL Imm/Tot Granulo (auto) 0.3 % D-Dimer Quant (PE/DVT) 1.69 H (0.00-0.50) ug/ml VBG pH 7.418 (7.32-7.43) VBG pCO2 35 L (40-50) mmHG VBG pO2 61.2 H (25-47) mmHG VBG HCO3 23 (21-28) mmol/L Sodium 132 L (135-149) mmol/L Potassium 3.5 L (3.6-5.1) mmol/L Chloride 99 (96-114) mmol/L Carbon Dioxide 21 (20-32) mmol/L Anion Gap 12 (7-15) mEq/L BUN 22 (7-30) mg/dL Creatinine 0.6 (0.5-1.5) mg/dL Estimated Creat Clear 34.23 Estimated GFR 87 ml/min Glucose 288 H (60-115) mg/dL Lactate 2.6 H (0.5-1.9) mmol/L Calcium 8.7 (8.4-10.6) mg/dL Magnesium 1.5 (1.5-2.6) mg/dL Total Bilirubin 0.6 (0.1-1.5) mg/dL AST 25 (12-35) U/L ALT 24 (4-35) U/L Alkaline Phosphatase 79 (40-150) U/L Troponin I < 0.01 L (0.01-0.04) ng/mL NT-Pro-B Natriuret Pep 51 pg/mL Total Protein 7.4 (6.0-8.3) g/dL Albumin 4.3 (3.3-5.0) g/dL Urine Color Yellow (Yellow) Urine Appearance Clear (Clear) Urine pH 6.5 (5.0-8.5) Ur Specific [place] 1.010 (1.000-1.030) Urine Protein Negative (Negative) Urine Glucose (UA) Negative (Negative) Urine Ketones Negative (Negative) Urine Blood Trace-intact A (Negative) Urine Nitrite Negative (Negative) Urine Bilirubin Negative (Negative) Urine Urobilinogen 0.2 (0.2-1.0) Ur Leukocyte Esterase Negative (Negative) Urine RBC 0-2 (0-2) Urine WBC 0-2 (0-5) Ur Squamous Epith Cells Few (None-Few) Urine Bacteria None (None) <Lori Leo MD - Last Filed: 09/12/23 00:24> Lab Results 09/11/23 09/12/23 Range/Units 21:10 00:34 WBC 10.94 (4.50-11.00) K/uL RBC 4.28 (4.00-5.20) m/uL Hgb 13.2 (12.0-16.0) gm/dL Hct 39.4 (33.0-51.0) % MCV 92 (80-100) fL MCH 31 (26-34) pg MCHC 34 (32-36) gm/dL RDW Coeff of [place] 12.9 (11.5-15.5) % Plt Count 297 (140-440) K/uL Neut % (Auto) 63.1 (42.0-72.0) % Lymph % (Auto) 25.9 (20-44) % [place] % (Auto) 8.6 (0.0-11.0) % Eos % (Auto) 1.8 (0.0-7.0) % Baso % (Auto) 0.3 (0.0-3.0) % Neut # (Auto) 6.91 (1.7-7.0) K/uL Lymph # (Auto) 2.83 (0.90-2.90) K/uL [place] # (Auto) 0.90 (0.00-0.90) K/UL Eos # (Auto) 0.20 (0.00-0.50) K/uL Baso # (Auto) 0.03 (0.00-0.30) K/uL Abs Immat Gran (auto) 0.03 (0.00-0.30) K/uL Imm/Tot Granulo (auto) 0.3 % D-Dimer Quant (PE/DVT) 1.69 H (0.00-0.50) ug/ml VBG pH 7.418 (7.32-7.43) VBG pCO2 35 L (40-50) mmHG VBG pO2 61.2 H (25-47) mmHG VBG HCO3 23 (21-28) mmol/L Sodium 132 L (135-149) mmol/L Potassium 3.5 L (3.6-5.1) mmol/L Chloride 99 (96-114) mmol/L Carbon Dioxide 21 (20-32) mmol/L Anion Gap 12 (7-15) mEq/L BUN 22 (7-30) mg/dL Creatinine 0.6 (0.5-1.5) mg/dL Estimated Creat Clear 34.23 Estimated GFR 87 ml/min Glucose 288 H (60-115) mg/dL Lactate 2.6 H (0.5-1.9) mmol/L Calcium 8.7 (8.4-10.6) mg/dL Magnesium 1.5 (1.5-2.6) mg/dL Total Bilirubin 0.6 (0.1-1.5) mg/dL AST 25 (12-35) U/L ALT 24 (4-35) U/L Alkaline Phosphatase 79 (40-150) U/L Troponin I < 0.01 L (0.01-0.04) ng/mL NT-Pro-B Natriuret Pep 51 pg/mL Total Protein 7.4 (6.0-8.3) g/dL Albumin 4.3 (3.3-5.0) g/dL Urine Color Yellow (Yellow) Urine Appearance Clear (Clear) Urine pH 6.5 (5.0-8.5) Ur Specific [place] 1.010 (1.000-1.030) Urine Protein Negative (Negative) Urine Glucose (UA) Negative (Negative) Urine Ketones Negative (Negative) Urine Blood Trace-intact A (Negative) Urine Nitrite Negative (Negative) Urine Bilirubin Negative (Negative) Urine Urobilinogen 0.2 (0.2-1.0) Ur Leukocyte Esterase Negative (Negative) Urine RBC 0-2 (0-2) Urine WBC 0-2 (0-5) Ur Squamous Epith Cells Few (None-Few) Urine Bacteria None (None) <Danilo Bardales MD - Last Filed: 10/05/23 12:19> ECG Data Attestation: I personally reviewed and interpreted this ECG as follows: (Sinus rhythm, 80 beats per minute. Left anterior fascicular block. No definitive acute ischemic change. QT corrected 440 milliseconds.) <Lori Leo MD - Last Filed: 09/12/23 00:24> ECG interpretation date: 09/11/23 <Lori Leo MD - Last Filed: 09/12/23 00:24> ECG interpretation time: 21:20 <Lori Leo MD - Last Filed: 09/12/23 00:24> Prior ECG tracings: not available for review <Lori Leo MD - Last Filed: 09/12/23 00:24> Discharge Plan Discharge Clinical Impression: Syncope, Hx of supraventricular tachycardia <Lori Leo MD - Last Filed: 09/12/23 00:24> Patient Disposition: Home, Self-Care <Lori Leo MD - Last Filed: 09/12/23 00:24> Condition: Stable <Lori Leo MD - Last Filed: 09/12/23 00:24> Instructions: Supraventricular Tachycardia (ED), Syncope (ED) <Lori Leo MD - Last Filed: 09/12/23 00:24> Additional Instructions: Need to follow up in clinic with your primary care provider, consider having a Zio patch placed to see underlying possible arrhythmia burden. In the meantime, any further syncopal episodes should cause you to seek re-evaluation. Otherwise, stay on current medications. <Lori Leo MD - Last Filed: 09/12/23 00:24> Activity Level: Activity as Tolerated <Lori Leo MD - Last Filed: 09/12/23 00:24> Activity as Tolerated <Danilo Bardales MD - Last Filed: 10/05/23 12:19> Prescriptions: No Action levothyroxine 100 mcg tablet 100 mcg PO glyburide 1.25 mg tablet 1.25 mg PO amlodipine 2.5 mg tablet 2.5 mg PO pravastatin 20 mg tablet 20 mg PO Ocuvite Adult 50 Plus 250 mg (90 mg-160 mg) capsule 1 cap PO QAM memantine 5 mg tablet 5 mg PO aspirin 81 mg tablet,delayed release (DR/EC) 81 mg PO QDAY <Lori Leo MD - Last Filed: 09/12/23 00:24> Follow Up/Referrals: Marcia Campa DO [Primary Care Provider] - <Lori Leo MD - Last Filed: 09/12/23 00:24> Stand Alone Forms: [facility] Info Instructions <Lori Leo MD - Last Filed: 09/12/23 00:24>
[2023-09-11 21:24] VITALS: O2SAT 95
[2023-09-11 21:39] LABS: HCO3 VBG 23 mmol/L (21-28); Lactate* 2.6 mmol/L (0.5-1.9); PCO2 VBG 35 mmHG (40-50); PO2 VBG 61.2 mmHG (25-47); pH VBG 7.418 (7.32-7.43)
[2023-09-11 21:40] LABS: Basophils Absolute Auto 0.03 K/uL (0.00-0.30); Basophils Percent Auto 0.3 % (0.0-3.0); Eosinophils Percent Auto 1.8 % (0.0-7.0); Hematocrit 39.4 % (33.0-51.0); Hemoglobin* 13.2 gm/dL (12.0-16.0); Immature Granulocytes Abs Auto 0.03 K/uL (0.00-0.30); Immature Granulocytes Pct Auto 0.3 %; Lymphocytes Absolute Auto 2.83 K/uL (0.90-2.90); Lymphocytes Percent Auto 25.9 % (20-44); Mean Corpuscular HGB Conc 34 gm/dL (32-36); Mean Corpuscular Hemoglobin 31 pg (26-34); Mean Corpuscular Volume 92 fL (80-100); Monocytes Percent Auto 8.6 % (0.0-11.0); Neutrophils Absolute Auto 6.91 K/uL (1.7-7.0); Neutrophils Percent Auto 63.1 % (42.0-72.0); Platelet Count* 297 K/uL (140-440); RDW Coefficient of Variation % 12.9 % (11.5-15.5); Red Blood Count 4.28 m/uL (4.00-5.20); White Blood Count* 10.94 K/uL (4.50-11.00)
--- NOTE | 2023-09-11 21:41 | ED.NURSE ---
patient repositioned and given ice chips
[2023-09-11 21:51] LABS: Slide Review Reflex No
[2023-09-11 21:55] LABS: Albumin* 4.3 g/dL (3.3-5.0)
[2023-09-11 21:56] LABS: Chloride* 99 mmol/L (96-114); Potassium* 3.5 mmol/L (3.6-5.1); Sodium* 132 mmol/L (135-149)
[2023-09-11 21:57] LABS: D Dimer Quantitative* 1.69 ug/ml (0.00-0.50)
[2023-09-11 21:58] LABS: Anion Gap 12 mEq/L (7-15); Bilirubin Total* 0.6 mg/dL (0.1-1.5); Carbon Dioxide* 21 mmol/L (20-32); Creatinine* 0.6 mg/dL (0.5-1.5); Est. Creatinine Clearance* 34.23; Estimated Glomerular Filt Rate 87 ml/min
[2023-09-11 21:59] LABS: Alanine Aminotransferase* 24 U/L (4-35); Alkaline Phosphatase* 79 U/L (40-150); Aspartate Amino Transferase* 25 U/L (12-35); Blood Urea Nitrogen* 22 mg/dL (7-30); Calcium* 8.7 mg/dL (8.4-10.6); Glucose* 288 mg/dL (60-115); Magnesium* 1.5 mg/dL (1.5-2.6); Total Protein* 7.4 g/dL (6.0-8.3)
[2023-09-11 22:16] LABS: NT Pro B Type NatriureticPept* 51 pg/mL; Troponin I* < 0.01 ng/mL (0.01-0.04)
--- NOTE | 2023-09-11 22:20 | CRLHL7_ITS ---
For Patients: As a result of the Century Cures Act, medical imaging exams and procedure reports are released immediately into your electronic medical record. You may view this report before your referring provider. If you have questions, please contact your health care provider. INDICATION: . Syncope, elevated d dimer, covid 1 mo ago TECHNIQUE: CT chest PE was acquired with 95 cc Isovue 370 IV contrast. COMPARISON: None FINDINGS: Pulmonary Arteries: No CT evidence of pulmonary thromboembolic disease. No pulmonary hypertension or right ventricular strain. Heart and Mediastinum: Thyroidectomy versus atrophic thyroid. No axillary or supraclavicular lymphadenopathy. No mediastinal, hilar or retrocrural lymphadenopathy. Normal heart size. Normal caliber aorta. Atherosclerotic calcifications. Lungs and Airways: No mass or consolidation. No endoluminal lesion. Pleura: The pleural spaces are normal. Abdomen: Left hepatic lobe simple attenuation focus, statistically a cyst. Retained contrast versus higher density urine in the renal collecting systems. Colonic diverticulosis. Duodenal diverticuli. 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 Bones and soft tissues: Age indeterminate likely old compression fracture of L1. IMPRESSION: 1. No CT evidence of pulmonary thromboembolic disease. 2. No intrathoracic mass or consolidation. Please note that all CT scans at this facility use dose modulation, iterative reconstruction, and/or weight-based dosing when appropriate to reduce radiation dose to as low as reasonably achievable. Dictated by Danilo Patel MD @ 09/12/2023 1:25:08 AM (Electronically Signed)
--- NOTE | 2023-09-11 22:37 | PC.NURSE ---
Pt to radiology
[2023-09-11 23:29] VITALS: PULSE 68; O2SAT 94
[2023-09-11 23:30] VITALS: PULSE 62; O2SAT 95
[2023-09-11 23:31] VITALS: BP 149/76; PULSE 67; O2SAT 95
[2023-09-11 23:45] VITALS: PULSE 77; O2SAT 93
[2023-09-12] VITALS: PULSE 74; O2SAT 96
[2023-09-12 00:02] VITALS: BP 161/95; PULSE 66; O2SAT 92
[2023-09-12 00:15] VITALS: PULSE 64; O2SAT 95
[2023-09-12 00:53] LABS: Appearance Urine Clear (Clear); Bilirubin Urine Negative (Negative); Blood Urine Trace-intact (Negative); Color Urine Yellow (Yellow); Glucose Urine Negative (Negative); Ketones Urine Negative (Negative); Leukocyte Esterase Urine Negative (Negative); Nitrite Urine Negative (Negative); Protein Urine Negative (Negative); Urobilinogen Urine 0.2 (0.2-1.0); pH Urine 6.5 (5.0-8.5)
[2023-09-12 01:04] LABS: RBC Urine 0-2 (0-2); Squamous Epithelial Cell Urine Few (None-Few); WBC Urine 0-2 (0-5)
== END 2023-09-12 01:51 | disposition home or self-care (01) ==
LOC: ED 22:25 → SS 23:16 → ED 23:22
PROVIDERS: Family Medicine; Emergency Provider Family Medicine; PCP Family Medicine
DX: R55 Syncope and collapse (principal)
CPT/HCPCS: 36415; 71275; 80053; 81003; 81015; 82803; 83605; 83735; 83880; 84484; 85025; 85379; 94761; 99284; Q9967

== ENCOUNTER 2024-02-09 22:21 | Outpatient (CLI) | payer MEDICARE, BC, SELFPAY ==
--- OUTSIDE RECORDS SUMMARY | 2024-02-17 00:41 | XMS_ITS | Clinical Summary ---
Author Organization [employer] [facility] [employer] [facility] Address [place], [place] [address] Care Team Providers Care Leach Runner Name Role Phone Lesli Cespedes Unavailable Marcia Campa DO Primary Care Provider [phone] Allergies Active Allergy Reactions Criticality Noted Date Comments D And C Yellow No.10 Itching 01/20/2010 Did not tolerate aspirin with yellow dye Hydrochlorothiazide 02/10/2007 bad reaction Metformin Diarrhea 04/09/2019 lower dose 1000mg or less was ok to only occasionally loose. Medications Medication Sig Dispensed Refills Start Date End Date Status ASPIRIN 81 MG TAB, DELAYED RELEASE Once daily 0 08/24/2007 Active cholecalciferol (VITAMIN D) 2,000 unit capsule Take 1 capsule by mouth once daily. 0 12/05/2010 Active medication order composer I Caps three times per week 0 05/13/2015 Active lancets (PRODIGY LANCETS) 28 gauge miscIndications:Diabe steffany mellitus without complication (HC) As directed. Dispense item covered by pt ins. E11.65 NIDDM type II, uncontrolled - Test 2 times/day. Reason: High A1C 100 Each 2 12/10/2017 Active vitamin-folic acid 1 mg ( RX) tablet/capsuleIndicat ions:Osteoporosis, unspecified osteoporosis type, unspecified pathological fracture presence Take 1 tablet by mouth once daily. 90 tablet 3 03/07/2018 Active blood-glucose meterIndications:Diab etes mellitus without complication (HC) Dispense meter, test strips, lancets covered by pt ins. E11.9 IDDM type II - Test 1 time/day 1 Device 02/19/2020 Active blood sugar diagnostic (Prodigy No Coding) stripIndications:Diab etes mellitus without complication (HC) USE TO TEST BLOOD GLUCOSE ONE TIME DAILY DIRECTED 100 Each 4 01/03/2021 Active CPAPIndications:Moder ate obstructive sleep apnea New replacement CPAP machine for home use at pressure: 4-15 cm/H2O , Heated humidifier x 1, Humidifier chamber x 1, 1 Each 11 10/17/2021 Active Shower BenchIndications:Diab etes mellitus without complication (HC) For home use. Length of need: 99 1 Each 11/09/2022 Active blood sugar diagnostic (Blood Glucose Test) stripIndications:Unco ntrolled type 2 diabetes mellitus with hyperglycemia (HC) Test 1 times per day.100 100 Each 04/07/2023 Active blood-glucose meterIndications:Unco ntrolled type 2 diabetes mellitus with hyperglycemia (HC) As directed. Dispense meter, test strips, lancets covered by pt ins. E11.9 NIDDM uncontrolled type II - Test 1 times/day. Reason: High A1C. Prodigy glucose meter. 1 Each 04/23/2023 Active pravastatin (PRAVACHOL) 20 mg tabletIndications:Kay betes mellitus without complication (HC),Essential hypertension TAKE 1 TABLET (20 MG) BY MOUTH ONE TIME DAILY WITH EVENING MEAL. 90 Tablet 2 11/08/2023 Active glyBURIDE (MICRONASE; DIABETA) 5 mg tabletIndications:Unc ontrolled type 2 diabetes mellitus with hyperglycemia (HC) Take 2 Tablets (10 mg) by mouth two times daily before meals. 180 Tablet 1 01/12/2024 Active metoprolol succinate (TOPROL XL) 25 mg Sustained-Release tabletIndications:PSV T (paroxysmal supraventricular tachycardia) (HC) Take 1 Tablet (25 mg) by mouth once daily. 90 Tablet 3 01/12/2024 Active levothyroxine (SYNTHROID) 112 mcg tabletIndications:Pos toperative hypothyroidism Take 1 Tablet (112 mcg) by mouth before breakfast. 90 Tablet 3 01/14/2024 Active Active Problems Problem Noted Date Diagnosed Date [...] Encounters Date Type Department Care Team Description 02/15/2024 Telephone [facility] [address] [place] [address] Annalise Kebede PA Questions (CPAP) 01/14/2024 Refill [facility] [address] [place] [address] Marcia Campa DO Refill Request 01/13/2024 Telephone [facility] [address] [place] [address] Paco Pablo MD Medication Management 01/12/2024 1:30 PM CDT Office Visit [facility] [address] [place] [address] Paco Pablo MD Consult (NEW PT Paroxysmal SVT/Syncope and collapse/f/u holter monitor PER [facility] RECORDS TO GET FROM [facility] PLEASE/ RCRDS IN CHART -ARON/); Concerns (Patient's daughter, Diana, reports that she fainted but the patient doesn't remember it. Patient's other daughter was around at the time to see the syncope episode. Patient lives in an independent living in a senior facility. Patient denies chest pain, shortness of breath, and dizziness. Patient reports feeling lightheaded sometimes. ) 01/12/2024 10:15 AM CDT Office Visit [facility] [address] [place] [address] Marcia Campa DO Diabetes (follow up/); Weight (weight gain/) 01/12/2024 Travel 12/23/2023 Telephone [facility] [address] [place] [address] Marcia Campa DO Appointment (need to reschedule 12/26 appt/) 12/02/2023 Orders Only [facility] Scanner 1 scan: (1-Ord) INCOMING RECORDS-STRESS TEST, UNKNOWN FACILITY, 12/02/2023 12/02/2023 Orders Only [facility] Scanner 1 scan: (1-Ord) INCOMING RECORDS-EVENT MONITOR, [facility], 12/02/2023 12/02/2023 Orders Only [facility] Scanner 1 scan: (1-Ord) INCOMING RECORDS-EKG, [facility], 12/02/2023 12/02/2023 Orders Only [facility] Scanner 1 scan: (1-Ord) INCOMING RECORDS-CT, [facility], 12/02/2023 12/02/2023 Orders Only [facility] Scanner 1 scan: (1-Ord) INCOMING RECORDS-LABS, [facility], 12/02/2023 12/02/2023 Orders Only [facility] Scanner 1 scan: (1-Ord) INCOMING RECORDS-LABS, [facility], 12/02/2023 12/02/2023 Orders Only [facility] Scanner 1 scan: (1-Ord) INCOMING RECORDS-LABS, [facility], 12/02/2023 11/22/2023 Telephone [facility] [address] [facility] [address] [place] [address] Jus Wang MD APPOINTMENT from [...] Info) Description 02/24/2024 1:20 PM CDT Appointment [facility] [address] [place] [address] 02/24/2024 2:15 PM CDT Appointment [facility] [address] [place] [address] 04/12/2024 10:00 AM CDT Office Visit [facility] [address] [facility] [place] [address] Lew Soliz MD [address] [place] [address] 04/12/2024 2:15 PM CDT Office Visit [facility] [address] [place] [address] Marcia Campa DO [address] [place] [address] 04/18/2024 1:00 PM CDT Office Visit [facility] [address] [place] [address] Paco Pablo MD [address] [place] [address] Health Maintenance Due Date Last Done Comments [...] EKG 12 LEAD (01/12/2024 2:09 PM CDT) Interpretation Sinus rhythm with Premature supraventricular complexes Left anterior fascicular block Lateral T Wave abnormality Abnormal ECG Ventricular Rate 76 BPM Atrial Rate 76 BPM P-R Interval 178 ms QRS Duration 90 ms QT 380 ms QTc 427 ms P [place] 55 degrees R [place] -63 degrees T [place] 79 degrees 01/12/2024 2:09 PM CDT 01/12/2024 2:35 PM CDT Paco Pablo MD EKG ORD * (ABNORMAL) TSH (01/12/2024 10:26 AM CDT) TSH 5.36(H) 0.27 - 4.20 uIU/mL 01/12/2024 6:56 PM CDT [facility] Blood BLOOD SPECIMEN / Unknown Venipuncture / Unknown 01/12/2024 10:26 AM CDT 01/12/2024 10:27 AM CDT Narrative [facility] - 01/12/2024 6:56 PM CDT In Adults, TSH values between 5.00 and 10.00 uIU/ml do not necessarily indicate the presence of Hypothyroidism. Correlation with clinical findings such as presence of goiter and/or Thyroperoxidase (TPO) Antibody may be helpful. For more information please refer to MARY CARMEN 2004; 291: 228-238. Marcia Campa DO CHEMISTRY [facility] [address] [place] [address], * (ABNORMAL) HEMOGLOBIN A1C MONITORING (POCT) (01/12/2024 10:26 AM CDT) HEMOGLOBIN A1C MONITORING (POCT) 10.3(H) <=6.4 % 01/12/2024 10:36 AM CDT [facility] Blood BLOOD SPECIMEN / Unknown Venipuncture / Unknown 01/12/2024 10:26 AM CDT 01/12/2024 10:27 AM CDT Narrative [facility] - 01/12/2024 10:36 AM CDT ? [...] Anemias, Splenectomy ? Marcia Campa DO CHEMISTRY [facility] [address] [place] [address], * SCAN CORRESP-LABORATORY RESULTS (12/02/2023 12:00 AM [...] recommended in 3-5 years. Haydee Eugene PA-C [facility] 01/12/2023 Narrative 01/12/2023 2:08 PM CDT For Patients: Results are automatically released to your [facility] ([employer]) account once available, in compliance with federal regulations. This means that you may see your results before your provider has had a chance to review them. Please allow 2-3 business days for your provider to comment on the results. XR DXA Bone Mineral Density (BMD) EXAM LOCATION: [address] [place] [address] [address] PATIENT NAME: Shoshana Vazquez DATE OF : [...] two scanners are made by the same research physician. PROCEDURE: Dual-energy x-ray absorptiometry performed with routine [...] Documents on File Type Date Recorded Patient Medical Dosimetrist Expl anation Healthcare Directive 11/07/2014 015 * Full Code (Latest Code Status on File) Date Activated Date Inactivated Comments 11/09/2014 9:52 AM 11/10/2014 4:05 PM Care Teams Leach Runner Relationship Specialty Start Date End Date Marcia Campa DO [address] [place] [address] PCP - General Family Practice 07/21/17 Lesli Cespedes [facility] Audiology 07/19/13
== END 2024-02-09 22:22 | disposition home or self-care (01) ==
LOC: AMB 02-17 00:39
PROVIDERS: PCP Family Medicine; Visit Provider Family Medicine
DX: I49.9 Cardiac arrhythmia, unspecified (principal); R42 Dizziness and giddiness
CPT/HCPCS: A0425; A0427

== ENCOUNTER 2024-02-09 23:05 | Emergency (ER) | payer MEDICARE, BC, SELFPAY ==
[2024-02-09 23:10] VITALS: BP 185/90; PULSE 78; RESP 18; TEMP 36.7; O2SAT 99; BMI 31.1
[2024-02-09 23:16] VITALS: PULSE 75; O2SAT 92
--- NOTE | 2024-02-09 23:17 | ED.GENADULT ---
HPI - General Adult General Chief complaint: Arrhythmia/Palpitations Stated complaint: arrhythmia Time Seen by Provider: 02/09/24 23:13 History of Present Illness HPI narrative: CC: Fast Heart Rate pt. felt heart rate was high around 1900. intermittent symptoms. feels better now. denies any complaints. 89-year-old woman presenting to emergency department with concern of rapid heart rate. She presents with her daughter. Over the last 3 hours apparently has been having intermittent rapid heart rate measured just tachycardic. Was feeling a little lightheaded as well. No chest pain but had been rubbing at her chest apparently. Does have a history of paroxysmal supraventricular tachycardia. Has been evaluated for possibly related syncopal events before. Is maintained on metoprolol but does not have a pocket pill recommendation otherwise. Arrives here is not tachycardic and feels better and asking if she can go home. No shortness of breath. No cough or cold symptoms recently. No fever. No radicular symptoms. Anticipating follow-up yet with Cardiology in a few weeks. Sounds like this will include echocardiogram as well as meeting with electrophysiology I think this is in February Related Data Home Medications ?Medication ?Instructions ?Recorded ?Confirmed amlodipine 2.5 mg tablet 2.5 mg PO DAILY 06/24/22 02/09/24 aspirin 81 mg tablet,delayed 81 mg PO QDAY 06/24/22 02/09/24 release memantine 5 mg tablet 5 mg PO DAILY 06/24/22 02/09/24 [id number] 250 mg-dha 90 1 cap PO QAM 06/24/22 02/09/24 mg-epa 160 [id number] capsule (Ocuvite Adult 50 Plus) pravastatin 20 mg tablet 20 mg PO HS 06/24/22 02/09/24 glyburide 5 mg tablet 10 mg PO BID 02/09/24 02/09/24 levothyroxine 112 mcg tablet 112 mcg PO DAILY 02/09/24 02/09/24 metoprolol succinate 25 mg 25 mg PO DAILY 02/09/24 02/09/24 tablet,extended release 24 hr Allergies Allergy/AdvReac Type Severity Reaction Status Date / Time hydrochlorothiazide AdvReac Headache Verified 02/09/24 23:12 Review of Systems Status of ROS: Reports: 6 or more systems reviewed and unremarkable except as noted in History and below PFSH PFSH Medical History Memory loss ?R41.3 - Other amnesia (ICD-10) Supraventricular tachycardia ?I47.1 - Supraventricular tachycardia (ICD-10) Thyroid cancer ?C73 - Malignant neoplasm of thyroid gland (ICD-10) Right foot injury (~2003) ?S99.921A - Unspecified injury of right foot, initial encounter (ICD-10) Diverticulitis ?K57.92 - Diverticulitis of intestine, part unspecified, without perforation or abscess without bleeding (ICD-10) Surgical History H/O 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 Breathing easily. Conversing easily. Appears to be energetic. Skin is warm and dry. Neck is supple without supraclavicular crepitus. There is no JVD. Lungs are clear. Heart in regular rate and rhythm with some ectopic beat. No pain to palpation over the abdomen. Soft. Trace pretibial edema. Const: Vital Signs, click to edit/add: Vital Signs - 24 hr 02/09/24 23:10 02/09/24 23:16 02/09/24 23:33 Temperature 98.0 F Pulse Rate 75 86 Pulse Rate [Right Pulse Oximeter] 78 Respiratory Rate 18 Blood Pressure [Ri ght Upper Arm] 185/90 H Pulse Oximetry 99 92 92 Oxygen Delivery Me thod Room Air 02/10/24 00:00 Temperature Pulse Rate 68 Pulse Rate [Right Pulse Oximeter] Respiratory Rate Blood Pressure [Ri ght Upper Arm] Pulse Oximetry 96 Oxygen Delivery Me thod Documenting provider has reviewed patient's vital signs: yes Course Vital Signs Vital signs: Initial Vital Signs Temperature 98.0 F 02/09/24 23:10 Temperature Source Temporal Artery Scan 02/09/24 23:10 Pulse Rate 78 02/09/24 23:10 Pulse Rhythm Regular 02/09/24 23:10 Pulse Strength 3+ Normal 02/09/24 23:10 Respiratory Rate 18 02/09/24 23:10 Blood Pressure 185/90 H 02/09/24 23:10 Blood Pressure Mean 121 H 02/09/24 23:10 Blood Pressure Position Supine 02/09/24 23:10 Pulse Oximetry 99 02/09/24 23:10 Oxygen Delivery Method Room Air 02/09/24 23:10 Vital Signs Temperature 98.0 F 02/09/24 23:10 Pulse Rate 78 02/09/24 23:10 Respiratory Rate 18 02/09/24 23:10 Blood Pressure 185/90 H 02/09/24 23:10 Pulse Oximetry 99 02/09/24 23:10 Oxygen Delivery Method Room Air 02/09/24 23:10 Temperature 98.0 F 02/09/24 23:10 Pulse Rate 68 02/10/24 00:00 Respiratory Rate 18 02/09/24 23:10 Blood Pressure 185/90 H 02/09/24 23:10 Pulse Oximetry 96 02/10/24 00:00 Oxygen Delivery Method Room Air 02/09/24 23:10 Medical Decision Making MDM Narrative Medical decision making narrative: Doing quite well at this time. History of supraventricular tachycardia. Rate as described does not appear to be at a rate I have might expect with that but certainly possible. With further conversation reveals that has been stressing or anxious in particular lately about a pending trip to graduation. She is worried about packing and travel which is a rather long drive she feels. I suppose this could be some indigestion otherwise. EKG does show a PAC. Otherwise as below. Reviewing records shows that has been hyponatremic mildly in the past and not to significant degree though. Feels like she does a good job of hydrating. No evidence of hypokalemia or hyperkalemia on EKG. Does not appear to have symptoms consistent with infectious etiology otherwise. This seems inconsistent with ischemic cardiovascular issue. Does have relatively close cardiac follow-up. Monitoring on [employer] supervisor here in the ER and has maintained regular rhythm and rate. We did discuss doing further evaluation beyond the duration of monitoring we have a ready done in the emergency department. She feels well and would like to leave. Daughter in agreement. See patient discharge plan for further discussion/plan ECG Data Attestation: I personally reviewed and interpreted this ECG as follows: (Sinus rhythm with PAC. Rate of 67) Discharge Plan Discharge Clinical Impression: Tachycardia Patient Disposition: Home w/ Parent or Adult Condition: Improved Additional Instructions: Generally stay well-hydrated. If this comes back and is persisting, please feel free to return to the emergency department and we will investigate further. I hope you can come to an easy decision on whether or not to attend this graduation. Prescriptions: No Action amlodipine 2.5 mg tablet 2.5 mg PO DAILY pravastatin 20 mg tablet 20 mg PO HS Ocuvite Adult 50 Plus 250 mg (90 mg-160 mg) capsule 1 cap PO QAM memantine 5 mg tablet 5 mg PO DAILY aspirin 81 mg tablet,delayed release (DR/EC) 81 mg PO QDAY glyburide 5 mg tablet 10 mg PO BID levothyroxine 112 mcg tablet 112 mcg PO DAILY metoprolol succinate 25 mg tablet extended release 24 hr 25 mg PO DAILY Follow Up/Referrals: Marcia Campa DO [Primary Care Provider] - Stand Alone Forms: MyHealth Info Instructions
[2024-02-09 23:33] VITALS: PULSE 86; O2SAT 92
[2024-02-10] VITALS: PULSE 68; O2SAT 96
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
== END 2024-02-10 00:45 | disposition home or self-care (01) ==
LOC: ED 02-10 00:36
PROVIDERS: Emergency Provider Family Medicine; PCP Family Medicine
DX: R00.0 Tachycardia, unspecified (principal)
CPT/HCPCS: 93005; 99284

== ENCOUNTER 2024-05-18 10:14 | Inpatient (IN) | payer MEDICARE, BC, SELFPAY ==
[2024-05-18] VITALS (39 sets, daily range): BP systolic 157–211; BP diastolic 81–112; PULSE 55–87; RESP 18–20; TEMP 36.4–36.6; O2SAT 90–97; BMI 33.2; BMI 31.9
--- NOTE | 2024-05-18 10:42 | ED.CHESTPAIN ---
HPI - Chest Pain General Time Seen by Provider: 10:42 Date Seen: 05/18/24 Chief Complaint: Chest Pain Stated Complaint: Severe chest pain, nausea Time Seen by Provider: 05/18/24 10:42 Source: patient and RN notes reviewed Mode of arrival: ambulatory Limitations: no limitations History of Present Illness HPI narrative: This 89-year-old female is accompanied by her daughter with severe substernal chest pain. Patient was getting in her daughter's car to go to a cardiology appointment in [place]. She developed severe central substernal chest pain, had associated nausea, felt like she was going to throw up but did not. Still has some nausea, the pain is improved. She has never had pain like this before. There was no breathing change with it. She has a history of tachycardia but did not feel any of those symptoms with this. There is no abdominal pain with it. No fevers or chills. She has not had any recent fall or trauma, no recent illness, no cough or cold symptoms. With her history of tachycardia, she did do cardiac monitoring, was found to have some episodes a tachycardia as well as bradycardia but nothing triggering need for placement of a pacemaker. Daughter notes that they were going to place a loop recorder in May. Patient is on her 2nd day of a new medicine for her diabetes which is Jardiance. She does take a daily 81 mg aspirin. MD complaint: chest pain Prior episodes: No Related Data On Oral Contraceptives: No Home Medications ?Medication ?Instructions ?Recorded ?Confirmed aspirin 81 mg tablet,delayed 81 mg PO DAILY 06/24/22 05/18/24 release [id number]- 250 mg-dha 90 1 cap PO QAM 06/24/22 05/18/24 mg-epa 160 pe-jiji-lhky-zeax capsule (Ocuvite Adult 50 Plus) pravastatin 20 mg tablet 20 mg PO HS 06/24/22 05/18/24 glyburide 5 mg tablet 10 mg PO .BIDAC 02/09/24 05/18/24 levothyroxine 112 mcg tablet 112 mcg PO DAILY 02/09/24 05/18/24 metoprolol succinate 25 mg 25 mg PO DAILY 02/09/24 05/18/24 tablet,extended release 24 hr cholecalciferol (vitamin D3) 50 50 mcg PO DAILY 05/18/24 05/18/24 mcg (2,000 unit) capsule empagliflozin 10 mg tablet 10 mg PO DAILY 05/18/24 05/18/24 (Jardiance) valsartan 80 mg tablet 80 mg PO DAILY 05/18/24 05/18/24 Allergies Allergy/AdvReac Type Severity Reaction Status Date / Time hydrochlorothiazide AdvReac Headache Verified 05/18/24 10:23 Review of Systems Status of ROS Reports: 6 or more systems reviewed and unremarkable except as noted in History and below PFSH PFS Medical History Memory loss ?R41.3 - Other amnesia (ICD-10) Supraventricular tachycardia ?I47.1 - Supraventricular tachycardia (ICD-10) Thyroid cancer ?C73 - Malignant neoplasm of thyroid gland (ICD-10) Right foot injury (~2003) ?S99.921A - Unspecified injury of right foot, initial encounter (ICD-10) Diverticulitis ?K57.92 - Diverticulitis of intestine, part unspecified, without perforation or abscess without bleeding (ICD-10) Surgical History H/O 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) History of carpal tunnel surgery of left wrist (~1990) ?Z98.890 - Other specified postprocedural states (ICD-10) History of carpal tunnel surgery of right wrist (~1988) ?Z98.890 - Other specified postprocedural states (ICD-10) Social History Smoking Status: Never smoker Do you use any of these nicotine containing products: None Second hand tobacco smoke exposure: No How often do you have a drink containing alcohol: monthly or less AUDIT-C Alcohol total score: 1 Non-prescribed substance use: denies use service: No Exam Const Vital Signs, click to edit/add: Vital Signs - 24 hr 05/18/24 10:23 05/18/24 10:25 05/18/24 10:27 Temperature 97.5 F L Pulse Rate 75 Pulse Rate [Pulse Oximeter] 78 Respiratory Rate 20 Blood Pressure 211/106 H Blood Pressure [Right Upper Arm] 211/106 H Pulse Oximetry 94 95 Oxygen Delivery Method Room Air 05/18/24 10:30 05/18/24 10:32 05/18/24 10:45 Temperature Pulse Rate 77 77 80 Pulse Rate [Pulse Oximeter] Respiratory Rate Blood Pressure 191/98 H Blood Pressure [Right Upper Arm] Pulse Oximetry 95 95 93 Oxygen Delivery Method 05/18/24 10:47 05/18/24 10:49 05/18/24 11:00 Temperature Pulse Rate 75 67 Pulse Rate [Pulse Oximeter] Respiratory Rate Blood Pressure 184/93 H Blood Pressure [Right Upper Arm] Pulse Oximetry 94 97 97 Oxygen Delivery Method 05/18/24 11:02 05/18/24 11:15 05/18/24 11:17 Temperature Pulse Rate 68 72 70 Pulse Rate [Pulse Oximeter] Respiratory Rate Blood Pressure 184/89 H 178/88 H Blood Pressure [Right Upper Arm] Pulse Oximetry 94 94 94 Oxygen Delivery Method 05/18/24 11:18 05/18/24 11:30 05/18/24 11:31 Temperature Pulse Rate 67 69 68 Pulse Rate [Pulse Oximeter] Respiratory Rate Blood Pressure 179/89 H Blood Pressure [Right Upper Arm] Pulse Oximetry 93 94 90 Oxygen Delivery Method 05/18/24 11:55 05/18/24 12:00 05/18/24 12:02 Temperature Pulse Rate 80 78 68 Pulse Rate [Pulse Oximeter] Respiratory Rate Blood Pressure 157/81 H Blood Pressure [Right Upper Arm] Pulse Oximetry 94 94 93 Oxygen Delivery Method 05/18/24 12:42 05/18/24 12:45 05/18/24 13:00 Temperature Pulse Rate 66 62 69 Pulse Rate [Pulse Oximeter] Respiratory Rate Blood Pressure Blood Pressure [Right Upper Arm] Pulse Oximetry 94 91 94 Oxygen Delivery Method 05/18/24 13:15 05/18/24 13:40 05/18/24 13:42 Temperature Pulse Rate 63 87 71 Pulse Rate [Pulse Oximeter] Respiratory Rate Blood Pressure 209/112 H Blood Pressure [Right Upper Arm] Pulse Oximetry 90 93 96 Oxygen Delivery Method 05/18/24 13:45 05/18/24 14:00 05/18/24 14:02 Temperature Pulse Rate 72 60 59 L Pulse Rate [Pulse Oximeter] Respiratory Rate Blood Pressure 184/89 H Blood Pressure [Right Upper Arm] Pulse Oximetry 95 93 92 Oxygen Delivery Method 05/18/24 14:15 05/18/24 14:30 05/18/24 14:32 Temperature Pulse Rate 62 62 62 Pulse Rate [Pulse Oximeter] Respiratory Rate Blood Pressure 186/96 H Blood Pressure [Right Upper Arm] Pulse Oximetry 95 95 94 Oxygen Delivery Method 05/18/24 14:45 05/18/24 15:00 05/18/24 15:02 Temperature Pulse Rate 65 59 L 57 L Pulse Rate [Pulse Oximeter] Respiratory Rate Blood Pressure 172/85 H Blood Pressure [Right Upper Arm] Pulse Oximetry 92 92 92 Oxygen Delivery Method 05/18/24 15:15 Temperature Pulse Rate 55 L Pulse Rate [Pulse Oximeter] Respiratory Rate Blood Pressure Blood Pressure [Right Upper Arm] Pulse Oximetry 93 Oxygen Delivery Method Shoshana is an 89-year-old female that is alert, interactive, no apparent distress but looks like she does not feel well. She states she is just trying to relax. Pupils are equal round reactive, face atraumatic, speech normal, able speak in complete sentences. Neck is supple, no adenopathy, no masses. Has some difficulty sitting up but lungs are clear, no wheezing or crackles noted, no tachypnea. CV sounds regular, no murmur, normal S1-S2, no S3-S4. Abdomen is soft, nontender, nondistended, no organomegaly. She has no lower extremity edema. No reproducible chest wall pain. Documenting provider has reviewed patient's vital signs: yes Course Course ED Course: Patient will be monitored on cardiac monitoring pulse oximetry. IV will be placed, get full complement of labs including a point of care troponin. Initial EKG is not showing any definitive changes for active ischemia or infarct. Will do a screening portable chest x-ray. We will be obtaining a D-dimer. Certainly cardiovascular disease with ischemia, infarct are possibilities. With this severe sudden pain and associated GI symptoms, considerations for dissection, aneurysmal disease, even possible GI pathology with pancreatitis as a possibility will be considered. She has taken an 81 mg aspirin. If her point of care troponin which will be coming back shortly is elevated will give further aspirin and guide therapy accordingly. Otherwise may need to do CT imaging depending on her laboratory values. She is hypertensive, could be pain manifestation but does make me think of possible dissection. Will provide dose of Zofran for nausea control at this time. Reevaluation(s) Time of Reevaluation #1: 11:41 Reevaluation #1: Reviewed with patient and her daughter that I have ordered CT imaging for dissection protocol. Her D-dimer is elevated, blood pressure systolic is still in the 170s. Her pain is improving. Given there are no respiratory complaints with this, was actually quite hypertensive, think pulmonary embolus is much less likely. I will initiate a dose of labetalol to try to bring her blood pressure down while we await the imaging in case this is dissection. Her initial troponin is normal but she will have a follow-up 1. Reviewed that this is not appearing to be myocardial ischemia/heart attack. Time of Reevaluation #2: 13:17 Reevaluation #2: Patient's CT is back, no evidence of any dissection or pulmonary embolus, incidental finding of a breast mass which I will review with patient. Her followup point care troponin is elevated at 0.12. Will get a follow-up EKG, will give her aspirin. Will have staff contact Cardiology. Patient is maybe having just minimal sense of chest symptoms, overall improved from arrival. She can not say that she has pain now but maybe is aware that something is in the chest. We will see how she response to aspirin, follow-up EKG is not showing any STEMI, no definite infarct. Time of Reevaluation #3: 14:15 Reevaluation #3: Have had lengthy discussion with patient and her daughter who was present and 1 on the phone. Reviewed my conversation with Cardiology. He is recommending medical therapy and nonaggressive management. She has a history of syncope, daughter's report she has not fallen but did review with them that this really does put her at risk for traumatic brain bleed if placed on further blood thinners. We also discussed the underlying breast mass found incidentally. May be difficult to have this taking care of if she were to go to the chemistry laboratory technician and get placed on antiplatelet agent for year. We had brenda discussion about treating the heart disease if she would not consider doing anything with the breast cancer that is likely there. Did review with them that this breast mass seen on CT is breast cancer until proven otherwise. For that, outpatient workup of probable biopsy and then staging for surgery could be considered. She may need to. Where she is allowed sometime for her cardiac infarct to heal. If there is significant cardiac enzyme elevation, recurrence of pain or significant abnormality on the echo, dispensary attendant would reconsider angiogram assessment. Consultations Consultation #1: Spoke with cardiology on-call through [facility], we were unable to get through to [place] [facility] despite waiting over [address] Hughes did know this patient, he had seen her for syncope before. We reviewed her case, did review that there is an incidental right breast mass concerning for breast cancer found on the CT. He would recommend against aggressive coronary assessment and treat with medical therapy. Maximize appropriate blood pressure control, aspirin treatment and maximal cholesterol control. He would trend her troponins and obtain an echo. If there was significant escalation of the troponins, recurrence of symptoms or significant abnormalities on the echo he would reconsider management. Would be worried about the breast mass further treatment as well as her syncope history with having her on further blood thinners with the antiplatelet management if she were to go to stent placement. I will present this to patient and her family and discuss further, he will take phone calls back from us if there are concerns or changes in her status. Time: 13:54 Consultation #2: Spoke with hospitalist Dr. Thomas. We agreed on oral dose of metoprolol in this setting, have ordered 25 mg of the immediate release. No heparin in this situation. She will trend troponins, echo has been ordered but cannot be done today, is scheduled for 1:00 p.m. tomorrow. Reviewed my conversation with Cardiology and the conversation with the family. Time: 14:52 Vital Signs Vital signs: Initial Vital Signs Temperature 97.5 F L 05/18/24 10:23 Temperature Source Temporal Artery Scan 05/18/24 10:23 Pulse Rate 78 05/18/24 10:23 Respiratory Rate 20 05/18/24 10:23 Blood Pressure 211/106 H 05/18/24 10:23 Blood Pressure Mean 141 H 05/18/24 10:23 Blood Pressure Position High-Fowlers 05/18/24 10:23 Pulse Oximetry 94 05/18/24 10:23 Oxygen Delivery Method Room Air 05/18/24 10:23 Vital Signs Temperature 97.5 F L 05/18/24 10:23 Pulse Rate 78 05/18/24 10:23 Respiratory Rate 20 05/18/24 10:23 Blood Pressure 211/106 H 05/18/24 10:23 Pulse Oximetry 94 05/18/24 10:23 Oxygen Delivery Method Room Air 05/18/24 10:23 Temperature 97.5 F L 05/18/24 10:23 Pulse Rate 55 L 05/18/24 15:15 Respiratory Rate 20 05/18/24 10:23 Blood Pressure 172/85 H 05/18/24 15:02 Pulse Oximetry 93 05/18/24 15:15 Oxygen Delivery Method Room Air 05/18/24 10:23 Medications Administered Medications: Discontinued Medications Generic Name Dose Route Start Last Admin Trade Name Veena PRN Reason Stop Dose Admin Aspirin 324 mg 05/18/24 13:16 05/18/24 13:23 Aspirin 81 Mg Tab.Chew PO 05/18/24 13:17 324 mg ONCE ONE Administration Sodium Chloride 250 mls @ 250 mls/hr 05/18/24 10:49 05/18/24 12:14 0.9 % Sodium Chloride 250 Ml IV 05/18/24 11:48 Infused .Q1H ONE Infusion Labetalol HCl 5 mg 05/18/24 11:44 05/18/24 12:14 Labetalol Hcl 5 Mg/Ml Inj IVP 05/18/24 11:45 5 mg ONCE ONE Administration Metoprolol Tartrate 25 mg 05/18/24 14:58 05/18/24 15:20 Metoprolol Tartrate 25 Mg Tablet PO 05/18/24 14:59 25 mg ONCE ONE Administration Ondansetron HCl 4 mg 05/18/24 10:49 05/18/24 11:13 Ondansetron 2 Mg/Ml Inj IVP 05/18/24 10:50 4 mg ONCE ONE Administration MDM - Chest Pain Lab Data Attestation: I reviewed the patient's lab results. Labs: Lab Results 05/18/24 05/18/24 05/18/24 Range/Units 10:38 10:50 12:49 WBC 9.62 (4.50-11.00) K/uL RBC 4.29 (4.00-5.20) m/uL Hgb 13.2 (12.0-16.0) gm/dL Hct 39.6 (33.0-51.0) % MCV 92 (80-100) fL MCH 31 (26-34) pg MCHC 33 (32-36) gm/dL RDW Coeff of David 12.8 (11.5-15.5) % Plt Count 314 (140-440) K/uL Neut % (Auto) 61.1 (42.0-72.0) % Lymph % (Auto) 28.0 (20-44) % [place] % (Auto) 8.3 (0.0-11.0) % Eos % (Auto) 1.7 (0.0-7.0) % Baso % (Auto) 0.2 (0.0-3.0) % Neut # (Auto) 5.88 (1.7-7.0) K/uL Lymph # (Auto) 2.69 (0.90-2.90) K/uL [place] # (Auto) 0.80 (0.00-0.90) K/UL Eos # (Auto) 0.16 (0.00-0.50) K/uL Baso # (Auto) 0.02 (0.00-0.30) K/uL Abs Immat Gran (auto) 0.07 (0.00-0.30) K/uL Imm/Tot Granulo (auto) 0.7 % D-Dimer Quant (PE/DVT) 1.01 H (0.00-0.50) ug/ml Sodium 133 L (135-149) mmol/L Potassium 4.2 (3.6-5.1) mmol/L Chloride 98 (96-114) mmol/L Carbon Dioxide 25 (20-32) mmol/L Anion Gap 10 (7-15) mEq/L BUN 20 (7-30) mg/dL Creatinine 0.7 (0.5-1.5) mg/dL Estimated Creat Clear 27.93 Estimated GFR 83 ml/min Glucose 335 H (60-115) mg/dL Lactate 2.5 H 2.0 H (0.5-1.9) mmol/L Calcium 8.9 (8.4-10.6) mg/dL Total Bilirubin 1.3 (0.1-1.5) mg/dL Direct Bilirubin 0.2 (0.0-0.5) mg/dL AST 26 (12-35) U/L ALT 23 (4-35) U/L Alkaline Phosphatase 74 (40-150) U/L Troponin I < 0.01 L (0.01-0.04) ng/mL C-Reactive Protein 0.7 (0.5-1.0) mg/dL NT-Pro-B Natriuret Pep 39 pg/mL Total Protein 7.4 (6.0-8.3) g/dL Albumin 4.4 (3.3-5.0) g/dL Lipase 101 (23-300) U/L POC Troponin I 0.01 (0.01-0.04) ng/ml 05/18/24 Range/Units 13:03 WBC (4.50-11.00) K/uL RBC (4.00-5.20) m/uL Hgb (12.0-16.0) gm/dL Hct (33.0-51.0) % MCV (80-100) fL MCH (26-34) pg MCHC (32-36) gm/dL RDW Coeff of David (11.5-15.5) % Plt Count (140-440) K/uL Neut % (Auto) (42.0-72.0) % Lymph % (Auto) (20-44) % [place] % (Auto) (0.0-11.0) % Eos % (Auto) (0.0-7.0) % Baso % (Auto) (0.0-3.0) % Neut # (Auto) (1.7-7.0) K/uL Lymph # (Auto) (0.90-2.90) K/uL [place] # (Auto) (0.00-0.90) K/UL Eos # (Auto) (0.00-0.50) K/uL Baso # (Auto) (0.00-0.30) K/uL Abs Immat Gran (auto) (0.00-0.30) K/uL Imm/Tot Granulo (auto) % D-Dimer Quant (PE/DVT) (0.00-0.50) ug/ml Sodium (135-149) mmol/L Potassium (3.6-5.1) mmol/L Chloride (96-114) mmol/L Carbon Dioxide (20-32) mmol/L Anion Gap (7-15) mEq/L BUN (7-30) mg/dL Creatinine (0.5-1.5) mg/dL Estimated Creat Clear Estimated GFR ml/min Glucose (60-115) mg/dL Lactate (0.5-1.9) mmol/L Calcium (8.4-10.6) mg/dL Total Bilirubin (0.1-1.5) mg/dL Direct Bilirubin (0.0-0.5) mg/dL AST (12-35) U/L ALT (4-35) U/L Alkaline Phosphatase (40-150) U/L Troponin I (0.01-0.04) ng/mL C-Reactive Protein (0.5-1.0) mg/dL NT-Pro-B Natriuret Pep pg/mL Total Protein (6.0-8.3) g/dL Albumin (3.3-5.0) g/dL Lipase (23-300) U/L POC Troponin I 0.12 H (0.01-0.04) ng/ml Imaging Data Chest x-ray: Attestation: I have reviewed the pertinent imaging results. Radiologist's impression: Patient: [facility] Facility:?[facility] Patient ID:?[id number] Site Patient ID:?[id number]. Site :?[id number] Study:?XRay-Chest 1 VIEW PORTABLE-05/18/2024 11:05:26 AM Ordering Physician:Jose Sandoval Final Report: INDICATION: Chest pain. COMPARISON: 12/23/2022 TECHNIQUE: 1 view. FINDINGS: Medical Devices: None. Lung Volumes: Shallow inspiration. No significant atelectasis. Lungs: Clear lungs. Pleura and Pleural spaces: No significant pleural effusion. No pneumothorax. Mediastinum: Normal cardiomediastinal silhouette. Bony Thorax and Soft Tissues: No significant incidental findings. IMPRESSION: No acute findings. Dictated by Eduardo Jo MD @ 05/18/2024 11:11:28 AM (Electronic Signature) CT- Other: Attestation: I have reviewed the pertinent imaging results. Radiologist's impression: [facility]: [facility] Facility:?[facility] Patient ID:?[id number] Site Patient ID:?[id number]. Site :?[id number] Study:?CT-Chest/Abd/Pelvis Angio W/ 95CC ISOVUE-370 AORTIC -05/18/2024 12:26:20 PM Ordering Physician:Jose Sandoval Final Report: INDICATION: Elevated BP/D-dimer, sudden onset severe CP. (Sic) COMPARISON: None available. TECHNIQUE: CT of the chest prior to and following IV contrast administration, with post contrast imaging of the abdomen and pelvis following administration of 95 cc of Isovue 370 intravenous contrast. Please note that all CT scans at this facility use dose modulation, iterative reconstruction, and/or weight-based dosing when appropriate to reduce radiation dose to as low as reasonably achievable. FINDINGS: CHEST Thoracic Aorta: No aneurysm, intramural hematoma, penetrating atherosclerotic ulcer, or dissection. Visualized Lower Neck: No lower cervical adenopathy. Mediastinum: No intraluminal pulmonary arterial tree filling defect is seen. Thoracic aorta and pulmonary trunk are normal in caliber. Heart and pericardium are without significant findings. Small hiatus hernia. There is no mediastinal lymphadenopathy. Lungs and Pleura: No significant pulmonary findings. Lateral basal segment right lower lobe pleural-based linear opacity consistent with nonspecific fibrosis. Bilateral lower lobe dependent hypoventilatory changes. No pleural effusion. No pneumothorax. ABDOMEN NB: Timing of imaging relative to contrast bolus administration limits assessment of the abdominopelvic viscera and venous vasculature on this arterial phase CT angiogram. Abdominal Aorta: No aneurysm, intramural hematoma, penetrating atherosclerotic ulcer, or dissection. Liver: Normal hepatic attenuation. Incidental 15 mm cyst (6; 173). No suspicious focal hepatic lesion. No intrahepatic biliary ductal dilatation. Gallbladder: Normal gallbladder size. Normal common duct caliber. No pericholecystic inflammatory changes. Pancreas: Normal pancreatic attenuation. No focal lesion. Normal duct caliber. No peripancreatic inflammatory changes. Spleen: Normal splenic attenuation. No suspicious focal lesion. Adrenal Glands: Symmetrical adrenal glands. No focal lesion of significance. Kidneys: Normal bilateral renal attenuation. No suspicious focal lesion. No obstructing nephrolith or dilatation of the intrarenal collecting systems. Gastrointestinal tract: No acute findings. Colonic diverticulosis without associated inflammatory changes. Postsurgical changes involving the rectosigmoid colon. Periampullary duodenal diverticulum. Vascular: Abdominal aorta and its major proximal branches including the celiac, superior mesenteric, inferior mesenteric, renal, and bilateral common iliac arteries are patent. Limited assessment of the venous vasculature on this arterial phase CT angiogram. Additional findings: No incidental adenopathy. No significant ascites, free fluid or pneumoperitoneum. PELVIS No bladder lesion is identified. No significant incidental findings related to the uterus and uterine adnexae. No abnormal free fluid. No incidental adenopathy. SKELETON AND BODY WALL Apparent 1.7 cm right breast mass at 9 o`clock, middle depth (series 4; image 50). Nonemergent diagnostic breast imaging is recommended (mammography and ultrasound) for further evaluation. Chronic appearing mild L1 superior endplate compression deformity. Advanced bilateral hip osteoarthrosis. Multilevel thoracolumbar spondylosis. IMPRESSION: 1. No evidence of acute aortic syndrome or pulmonary embolism. 2. Apparent 1.7 cm right breast mass with irregular margins located at 9 o`clock, middle depth (series 4; image 50). Nonemergent diagnostic breast imaging is recommended (mammography and ultrasound) for further evaluation. RECOMMENDATION: NONEMERGENT DIAGNOSTIC IMAGING OF THE BREASTS. Please note that all CT scans at this facility use dose modulation, iterative reconstruction, and/or weight-based dosing when appropriate to reduce radiation dose to as low as reasonably achievable. Dictated by Eduardo Jo MD @ 05/18/2024 1:08:30 PM (Electronic Signature) ECG Data Attestation: I personally reviewed and interpreted this ECG as follows: (EKG reviewed after staff obtained but could not see patient right away. Sinus rhythm with premature supraventricular complex, rate 78 beats per minute. Left anterior fascicular block. Poor R-wave progression in anterior precordial leads but no active ST segment changes or T-wave changes outside ) ECG interpretation date: 05/18/24 ECG interpretation time: 10:25 Prior ECG tracings: available for review (No significant change noted on comparison of her EKG from 12/10/2023.) Interpretation: EKG timed 1:18 p.m. shows normal sinus rhythm with sinus arrhythmia, 63 beats per minute. Poor R-wave progression anterior precordial leads, do see Q-waves inferiorly but no acute ST segment or T-wave change. Discharge Plan Discharge Clinical Impression: Non-ST elevated myocardial infarction (non-STEMI) Breast mass, right Qualifiers: Breast mass location: unspecified quadrant Qualified Code(s): N63.10 - Unspecified lump in the right breast, unspecified quadrant Patient Disposition: Admitted As Observation
[2024-05-18] MEDS: 0.9 % SODIUM CHLORIDE 250 ml 250 ML IV (10:45)
--- NOTE | 2024-05-18 10:49 | CRLHL7_ITS ---
For Patients: As a result of the Cures Act, medical imaging exams and procedure reports are released immediately into your electronic medical record. You may view this report before your referring provider. If you have questions, please contact your health care provider. INDICATION: Chest pain. COMPARISON: 12/23/2022 TECHNIQUE: 1 view. FINDINGS: Medical Devices: None. Lung Volumes: Shallow inspiration. No significant atelectasis. Lungs: Clear lungs. Pleura and Pleural spaces: No significant pleural effusion. No pneumothorax. Mediastinum: Normal cardiomediastinal silhouette. Bony Thorax and Soft Tissues: No significant incidental findings. IMPRESSION: No acute findings. Dictated by Eduardo Jo MD @ 05/18/2024 11:11:28 AM (Electronically Signed)
[2024-05-18 10:57] LABS: Lactate* 2.5 mmol/L (0.5-1.9)
[2024-05-18 11:11] LABS: Basophils Absolute Auto 0.02 K/uL (0.00-0.30); Basophils Percent Auto 0.2 % (0.0-3.0); Eosinophils Absolute Auto 0.16 K/uL (0.00-0.50); Eosinophils Percent Auto 1.7 % (0.0-7.0); Hematocrit 39.6 % (33.0-51.0); Hemoglobin* 13.2 gm/dL (12.0-16.0); Immature Granulocytes Abs Auto 0.07 K/uL (0.00-0.30); Immature Granulocytes Pct Auto 0.7 %; Lymphocytes Absolute Auto 2.69 K/uL (0.90-2.90); Mean Corpuscular HGB Conc 33 gm/dL (32-36); Mean Corpuscular Hemoglobin 31 pg (26-34); Mean Corpuscular Volume 92 fL (80-100); Monocytes Percent Auto 8.3 % (0.0-11.0); Neutrophils Absolute Auto 5.88 K/uL (1.7-7.0); Neutrophils Percent Auto 61.1 % (42.0-72.0); Platelet Count* 314 K/uL (140-440); RDW Coefficient of Variation % 12.8 % (11.5-15.5); Red Blood Count 4.29 m/uL (4.00-5.20); White Blood Count* 9.62 K/uL (4.50-11.00)
[2024-05-18 11:13] LABS: Slide Review Reflex No
[2024-05-18] MEDS: ONDANSETRON 2 MG/ML inj 4 MG IVP (11:13)
[2024-05-18 11:17] LABS: Albumin* 4.4 g/dL (3.3-5.0); Chloride* 98 mmol/L (96-114); Sodium* 133 mmol/L (135-149)
[2024-05-18 11:18] LABS: Potassium* 4.2 mmol/L (3.6-5.1)
[2024-05-18 11:19] LABS: Creatinine* 0.7 mg/dL (0.5-1.5); D Dimer Quantitative* 1.01 ug/ml (0.00-0.50); Est. Creatinine Clearance* 27.93; Estimated Glomerular Filt Rate 83 ml/min
[2024-05-18 11:20] LABS: Alkaline Phosphatase* 74 U/L (40-150); Anion Gap 10 mEq/L (7-15); Aspartate Amino Transferase* 26 U/L (12-35); Bilirubin Direct* 0.2 mg/dL (0.0-0.5); Bilirubin Total* 1.3 mg/dL (0.1-1.5); Blood Urea Nitrogen* 20 mg/dL (7-30); Carbon Dioxide* 25 mmol/L (20-32); Glucose* 335 mg/dL (60-115); Lipase* 101 U/L (23-300); Total Protein* 7.4 g/dL (6.0-8.3)
[2024-05-18 11:21] LABS: Troponin, Point-of-Care* 0.01 ng/ml (0.01-0.04)
[2024-05-18 11:21] LABS: Alanine Aminotransferase* 23 U/L (4-35); Calcium* 8.9 mg/dL (8.4-10.6)
[2024-05-18 11:23] LABS: C Reactive Protein* 0.7 mg/dL (0.5-1.0)
[2024-05-18 11:29] LABS: NT Pro B Type NatriureticPept* 39 pg/mL
[2024-05-18 11:32] LABS: Troponin I* < 0.01 ng/mL (0.01-0.04)
--- NOTE | 2024-05-18 11:36 | CRLHL7_ITS ---
For Patients: As a result of the 21st Century Cures Act, medical imaging exams and procedure reports are released immediately into your electronic medical record. You may view this report before your referring provider. If you have questions, please contact your health care provider. INDICATION: Elevated BP/D-dimer, sudden onset severe CP. (Sic) COMPARISON: None available. TECHNIQUE: CT of the chest prior to and following IV contrast administration, with post contrast imaging of the abdomen and pelvis following administration of 95 cc of Isovue 370 intravenous contrast. Please note that all CT scans at this facility use dose modulation, iterative reconstruction, and/or weight-based dosing when appropriate to reduce radiation dose to as low as reasonably achievable. FINDINGS: CHEST Thoracic Aorta: No aneurysm, intramural hematoma, penetrating atherosclerotic ulcer, or dissection. Visualized Lower Neck: No lower cervical adenopathy. Mediastinum: No intraluminal pulmonary arterial tree filling defect is seen. Thoracic aorta and pulmonary trunk are normal in caliber. Heart and pericardium are without significant findings. Small hiatus hernia. There is no mediastinal lymphadenopathy. Lungs and Pleura: No significant pulmonary findings. Lateral basal segment right lower lobe pleural-based linear opacity consistent with nonspecific fibrosis. Bilateral lower lobe dependent hypoventilatory changes. No pleural effusion. No pneumothorax. ABDOMEN NB: Timing of imaging relative to contrast bolus administration limits assessment of the abdominopelvic viscera and venous vasculature on this arterial phase CT angiogram. Abdominal Aorta: No aneurysm, intramural hematoma, penetrating atherosclerotic ulcer, or dissection. Liver: Normal hepatic attenuation. Incidental 15 mm cyst (6; 173). No suspicious focal hepatic lesion. No intrahepatic biliary ductal dilatation. Gallbladder: Normal gallbladder size. Normal common duct caliber. No pericholecystic inflammatory changes. Pancreas: Normal pancreatic attenuation. No focal lesion. Normal duct caliber. No peripancreatic inflammatory changes. Spleen: Normal splenic attenuation. No suspicious focal lesion. Adrenal Glands: Symmetrical adrenal glands. No focal lesion of significance. Kidneys: Normal bilateral renal attenuation. No suspicious focal lesion. No obstructing nephrolith or dilatation of the intrarenal collecting systems. Gastrointestinal tract: No acute findings. Colonic diverticulosis without associated inflammatory changes. Postsurgical changes involving the rectosigmoid colon. Periampullary duodenal diverticulum. Vascular: Abdominal aorta and its major proximal branches including the celiac, superior mesenteric, inferior mesenteric, renal, and bilateral common iliac arteries are patent. Limited assessment of the venous vasculature on this arterial phase CT angiogram. Additional findings: No incidental adenopathy. No significant ascites, free fluid or pneumoperitoneum. PELVIS No bladder lesion is identified. No significant incidental findings related to the uterus and uterine adnexae. No abnormal free fluid. No incidental adenopathy. SKELETON AND BODY WALL Apparent 1.7 cm right breast mass at 9 o`clock, middle depth (series 4; image 50). Nonemergent diagnostic breast imaging is recommended (mammography and ultrasound) for further evaluation. Chronic appearing mild L1 superior endplate compression deformity. Advanced bilateral hip osteoarthrosis. Multilevel thoracolumbar spondylosis. IMPRESSION: 1. No evidence of acute aortic syndrome or pulmonary embolism. 2. Apparent 1.7 cm right breast mass with irregular margins located at 9 o`clock, middle depth (series 4; image 50). Nonemergent diagnostic breast imaging is recommended (mammography and ultrasound) for further evaluation. RECOMMENDATION: NONEMERGENT DIAGNOSTIC IMAGING OF THE BREASTS. Please note that all CT scans at this facility use dose modulation, iterative reconstruction, and/or weight-based dosing when appropriate to reduce radiation dose to as low as reasonably achievable. Dictated by Eduardo Jo MD @ 05/18/2024 1:08:30 PM (Electronically Signed)
[2024-05-18] MEDS: LABETALOL HCL 5 MG/ML inj IVP (12:14)
--- OUTSIDE RECORDS SUMMARY | 2024-05-18 12:17 | XMS_ITS | Clinical Summary ---
Author Organization [employer] [facility] Address [place], [place] [address] Care Team Providers Care Bag Presser Name Role Phone Lesli Cespedes Lyssa Unavailable [phone] Marcia Campa DO Primary Care Provider Allergies [...] three times per week 0 5 Active vitamin-folic acid 1 mg ( RX) tablet/capsuleIndica tions:Osteoporosis, unspecified osteoporosis type, unspecified pathological fracture presence Take 1 tablet by mouth once daily. 90 tablet 3 8 Active CPAPIndications:Mode rate obstructive sleep apnea New replacement CPAP machine for home use at pressure: 4-15 cm/H2O , Heated humidifier x 1, Humidifier chamber x 1, 1 Each 11 2 Active Shower BenchIndications:Kay betes mellitus without complication (HC) For home use. Length of need: 99 1 Each 3 Active metoprolol succinate (TOPROL XL) 25 mg Sustained-Release tabletIndications:PS VT (paroxysmal supraventricular tachycardia) (HC) Take 1 Tablet (25 mg) by mouth once daily. 90 Tablet 3 4 Active lancets (Prodigy Lancets) 28 gauge miscIndications:Diab etes mellitus without complication (HC) As directed. Dispense item covered by pt ins. E11.65 NIDDM type II, uncontrolled - Test 2 times/day. Reason: High A1C 200 Each 3 4 Active blood sugar diagnostic (Blood Glucose Test) stripIndications:Unc ontrolled type 2 diabetes mellitus with hyperglycemia (HC) Test 2 times per day due to high A1C 200 Each 3 4 Active blood-glucose meterIndications:Unc ontrolled type 2 diabetes mellitus with hyperglycemia (HC) As directed. Dispense meter, test strips, lancets covered by pt ins. E11.9 NIDDM uncontrolled type II - Test 1 times/day. Reason: High A1C. Prodigy glucose meter. 1 Each 4 Active levothyroxine (SYNTHROID) 112 mcg tabletIndications:Po stoperative hypothyroidism Take 1 Tablet (112 mcg) by mouth before breakfast. Dose increase 03/09/24 90 Tablet 4 Active glyBURIDE (MICRONASE; DIABETA) 5 mg tabletIndications:Un controlled type 2 diabetes mellitus with hyperglycemia (HC) TAKE 2 TABLETS TWICE DAILY BEFORE MEALS 360 Tablet 4 Active zinc gluconate (ZINC ORAL) Take 50 mg by mouth. Active valsartan (DIOVAN) 80 mg tabletIndications:Es sential hypertension Take 1 Tablet (80 mg) by mouth once daily. 90 Tablet 4 Active pravastatin (PRAVACHOL) 20 mg tabletIndications:Di abetes mellitus without complication (HC),Essential hypertension TAKE 1 TABLET (20 MG) BY MOUTH ONE TIME DAILY WITH EVENING MEAL. 90 Tablet 2 4 Active empagliflozin (JARDIANCE) 10 mg tabletIndications:Un controlled type 2 diabetes mellitus with hyperglycemia (HC) Take 1 Tablet (10 mg) by mouth once daily. 90 Tablet 3 4 Active pravastatin (PRAVACHOL) 20 mg tabletIndications:Di abetes mellitus without complication (HC),Essential hypertension TAKE 1 TABLET (20 MG) BY MOUTH ONE TIME DAILY WITH EVENING MEAL. 90 Tablet 2 4 04/27/20 24 Discontinue d(Reorder (E-cancel not sent)) nirmatrelvir-ritonav ir 150-100mg (Paxlovid) tabletIndications:CO VID-19 virus infection Take 1 nirmatrelvir 150 mg pink-oval tablet and 1 ritonavir 100 mg white-oval tablet together twice daily for 5 days. Date of Symptom Onset: 04/17/2024; no result in last 6 months 20 Tablet 4 04/24/20 24 Active Problems Problem Noted Date Diagnosed Date [...] Encounters Date Type Department Care Team Description 05/18/[address] [address] Marcia Campa DO orders 05/16/[address] [address] Marcia Campa DO fyi 05/15/2024 9:00 AM CDT Office Visit [facility] [address] [place] [address] Marcia Campa DO Diabetes; Medication Management (allergy meds to take daily instead of PRN) 05/15/[address] [place] [phone] 91 Lew Soliz MD Pre Procedure (LINQ order ) 05/15/2024 Travel 04/27/2024 Refill [facility] [address] [place] [address] Marcia Campa DO Refill Request (PRAVASTATIN SODIUM 20MG TABS) 04/20/[address] [address] Marcia Campa DO Medication Management (nirmatrelvir-ritonavir 150-100mg (Paxlovid) tablet) 04/19/2024 1:50 PM CDT Phone Office Visit [facility] [address] [place] [address] Marcia Campa DO Covid-19 Positive Result (symptoms started Wednesday, chills, Wednesday runny nose, congestion, cough /-positive test 04/17/Wednesday vomiting- felt ok until Wednesday); Telehealth 04/19/2024 Telephone [facility] [address] [place] [address] Marcia Campa DO Form (COVID-19 treatment order) 04/19/2024 Telephone [facility] [address] [place] [address] Marcia Campa DO Medication Management 04/19/2024 Telephone [facility] [address] [place] [address] Marcia Campa DO Appointment 04/19/2024 Travel 04/17/2024 Nurse Triage [facility] [address] [place] [address] Marcia Campa DO Questions (Requesting Paxlovid) 04/14/2024 Telephone [facility] [address] [place] [address] Marcia Campa DO Form 04/13/2024 Orders Only [facility] [address] [facility] [place] [phone] Lew Soliz MD 1 scan: (1-Ord) 04/12/2024 04/12/2024 10:00 AM CDT Office Visit [facility] [address] [facility] [place] [address] eLw Soliz MD Follow Up (PSVT (paroxysmal supraventricular tachycardia)) 04/12/2024 Travel 04/11/2024 Telephone [facility] [address] [place] [address] Marcia Campa DO Appointment (questions on canceled appointment/) 04/10/2024 Refill [facility] [address] [place] [address] Marcia Campa DO Refill Request (METOPROLOL SUCCINATE ER 25MG TABLET, 24HR) 03/24/2024 Refill [facility] [address] [place] [address] Marcia Campa DO Refill Request (Glyburide) 03/24/2024 Refill [facility] [address] [place] [address] Marcia Campa DO Refill Request (LEVOTHYROXINE) 03/13/[address] [address] Raine Lacy MD Medication Management 03/09/2024 10:30 AM CDT Orders Only [address] [address] [facility] 03/09/2024 Travel 03/08/[address] [address] Marcia Campa DO Medication Management 02/24/2024 2:15 PM CDT - 02/24/2024 11:59 PM CDT Hospital Encounter [address] [id number] Ria Miller MD PSVT (paroxysmal supraventricular tachycardia) (HC); Loss of consciousness (HC) 02/24/2024 Travel 02/21/[address] [address] Marcia Campa DO Refill Request (Blood Glucose Meter) 02/21/[address] [address] Marcia Campa DO Medication Management (blood sugar diagnostic (Blood Glucose Test) strip, lancets (Prodigy Lancets) 28 gauge misc/) 02/21/[address] [address] Detert, Marcia Blaire, DO Follow Up ( Returning call ) 02/18/2024 Refill [facility] [address] [place] [address] Marcia Campa, Refill Request (Test strips and Lancets) from Last 3 Months Immunizations Name Administration [...] Sign Reading Time Taken Comments Blood Pressure 136/80 05/15/2024 9:05 AM CDT Pulse 73 05/15/2024 9:05 AM CDT Temperature 36.7 ??C (98 ??F) 01/04/2023 2:14 PM CDT Respiratory Rate 16 01/12/2024 1:15 PM CDT Oxygen Saturation 94% 05/15/2024 9:05 AM CDT Inhaled Oxygen Concentration - - Weight 81.1 kg (178 lb 12.8 oz) 05/15/2024 9:05 AM CDT Height 157.5 cm (5' 2) 01/12/2024 1:15 PM CDT Body Mass Index 32.7 01/12/2024 1:15 PM CDT Plan of Treatment Upcoming Encounters Date Type Department Care Team (Late st Contact Info) Description 06/02/2024 1:00 PM CDT Appointment [facility] [address] [place] [address] Merissa Ortiz PA [address] [facility] [address] [place] [address] 08/16/2024 3:[address] MAGISTRATE Office Visit [facility] [address] [place] [address] Marcia Campa DO [address] [place] [address] Health Maintenance Due Date Last Done Comments COVID-19 vaccine series (2022- season) 2023 03/09/2022, 09/05/2021, 11/10/2020, Additional history [...] Procedure Name Priority Date/Time Associated Diagnosis Comments UA W/ SEDIMENT EXAM REFLEXED PER CRITERIA Routine 05/15/2024 10:02 AM CDT Uncontrolled type 2 diabetes mellitus with hyperglycemia (HC) HEMOGLOBIN A1C Routine 05/15/2024 8:49 AM CDT Uncontrolled type 2 diabetes mellitus with hyperglycemia (HC) TSH Routine 05/15/2024 8:49 AM CDT Postoperative hypothyroidism EKG 12 LEAD Routine 04/12/2024 12:00 AM CDT PSVT (paroxysmal supraventricular tachycardia) (HC) EXTENDED HOLTER Routine 03/15/2024 PSVT (paroxysmal supraventricular tachycardia) (HC) Loss of consciousness (HC) TSH Routine 03/09/2024 10:43 AM CDT Postoperative hypothyroidism ECHO TTE COMPLETE W CONTRAST Routine 02/24/2024 2:28 PM CDT PSVT (paroxysmal supraventricular tachycardia) (HC) Loss of consciousness (HC) XR DXA BONE DENSITY 2 SITES AXIAL Routine 01/04/2023 1:30 PM CDT Age-related osteoporosis without current pathological fracture from Last 3 Months or Most Recently Relevant to Health Maintenance Results * (ABNORMAL) UA W/ SEDIMENT EXAM REFLEXED PER CRITERIA (05/15/2024 10:02 AM CDT) COLOR Yellow Yellow Color 05/15/2024 10:05 AM CDT [facility] CLARITY Clear Clear Clarity 05/15/2024 10:05 AM CDT [facility] SPECIFIC GRAVITY,URINE 1.015 1.010, 1.015, 1.020, 1.025 05/15/2024 10:05 AM CDT [facility] PH,URINE 7.0 6.0, 7.0, 8.0, 5.5, 6.5, 7.5, 8.5 05/15/2024 10:05 AM CDT [facility] UROBILINOGEN, QUALITATIVE Normal Normal EU/dl 05/15/2024 10:05 AM CDT [facility] PROTEIN, URINE Negative Negative mg/dL 05/15/2024 10:05 AM CDT [facility] GLUCOSE, URINE 250(A) Negative mg/dL 05/15/2024 10:05 AM CDT [facility] KETONES,URINE Negative Negative mg/dL 05/15/2024 10:05 AM CDT [facility] BILIRUBIN,URI NE Negative Negative 05/15/2024 10:05 AM CDT [facility] OCCULT BLOOD,URINE Negative Negative 05/15/2024 10:05 AM CDT [facility] NITRITE Negative Negative 05/15/2024 10:05 AM CDT [facility] LEUKOCYTE ESTERASE Negative Negative 05/15/2024 10:05 AM CDT [facility] Urine URINE SPECIMEN / Unknown Non-Blood / Unknown 05/15/2024 10:02 AM CDT 05/15/2024 10:02 AM CDT Marcia Rudd Katheryn DO URINE [facility] [address] [place] [address], * (ABNORMAL) TSH (05/15/2024 8:49 AM CDT) Only the most recent of2 resultswithin the time period is included. TSH 24.80(H) 0.27 - 4.20 uIU/mL 05/15/2024 6:56 PM CDT [facility] Blood BLOOD SPECIMEN / Unknown Venipuncture / Unknown 05/15/2024 8:49 AM CDT 05/15/2024 8:49 AM CDT Narrative [facility] - 05/15/2024 6:56 PM CDT In Adults, TSH values between 5.00 and 10.00 uIU/ml do not necessarily indicate the presence of Hypothyroidism. Correlation with clinical findings such as presence of goiter and/or Thyroperoxidase (TPO) Antibody may be helpful. For more information please refer to MARY CARMEN 2004; 291: 228-238. Marcia Campa DO CHEMISTRY [facility] [address] [place] [address], [place] * (ABNORMAL) HEMOGLOBIN A1C MONITORING (POCT) (05/15/2024 8:49 AM CDT) HEMOGLOBIN A1C MONITORING (POCT) 11.0(H) <=6.4 % 05/15/2024 8:59 AM CDT [facility] Blood BLOOD SPECIMEN / Unknown Venipuncture / Unknown 05/15/2024 8:49 AM CDT 05/15/2024 8:49 AM CDT Narrative [facility] - 05/15/2024 8:59 AM CDT ? (<=6.9%) ? Indicates good [...] Anemias, Splenectomy ? Marcia Campa DO CHEMISTRY [facility] [address] [place] [address], * EKG 12 LEAD (04/12/2024 12:00 AM CDT) Lew Soliz MD EKG ORD * EXTENDED HOLTER (03/15/2024) Ria Miller MD CARDIAC SERVICES ORD * ECHO TTE COMPLETE W CONTRAST (02/24/2024 2:28 PM CDT) EJECTION FRACTION 65% PROSOLV Anatomical Region Laterality Modality Ultrasound 02/24/2024 1:29 PM CDT Narrative 02/24/2024 6:30 PM CDT [address], [place] [address] Main: ? Transthoracic Echo Report SHOSHANA RUELAS Nile ID: [id number] Age: 89 : 1935 Ordering Provider: RIA MILLER Exam Date: 02/24/2024 13:29 Gender: F Warp Dyeing Tender: LISBETH Height: 62 in BSA: 1.84 m?? BP: 140 / 80 Weight: 182 lbs BMI: 33.3 kg/m?? HR: 54 Location: [facility] Rhythm: Sinus Bradycardia Procedure Components: 2D imaging with contrast, Color Doppler, Spectral Doppler Indications: Loss of consciousness (HC); PSVT (paroxysmal supraventricular tachycardia) (HC) Technical Quality: Poor Contrast: Definity Constrast Dose (ml): .3 [facility]#: [id number] Final Conclusion Technically challenging examination with limited endocardial and valvular definition, despite the use of echo contrast. 1. ??Normal left ventricular chamber size and systolic function; visually estimated ejection fraction 65%. 2. ??No focal regional wall motion abnormalities. 3. ??Right ventricle not well-visualized; borderline/upper normal right ventricular chamber size with borderline/low normal systolic function. 4. ??Moderate left atrial enlargement. 5. ??Aortic valve sclerosis without stenosis or regurgitation. 6. ??Unable to estimate right ventricular systolic pressure. No previous study available for comparison. Estimated EF: 65% FINDINGS Left Ventricle Normal left ventricular chamber size. Normal left ventricular wall thickness. Normal left ventricular systolic function. Estimated left ventricular ejection fraction is 65%. No regional wall motion abnormalities. Diastolic Function Indeterminate left ventricular diastolic function. Right Ventricle Right ventricle not well-visualized; borderline/upper normal right ventricular chamber size. ??Borderline/low normal right ventricular systolic function. Right ventricular systolic pressure cannot be estimated due to inability to detect peak tricuspid regurgitation Doppler velocity. Left Atrium Moderate left atrial enlargement. Right Atrium Right atrium not well-visualized. Atrial Septum No evidence of inter-atrial shunt by color flow Doppler. Aortic Valve Aortic valve not well-visualized; trileaflet aortic valve. ??Thickened/sclerotic aortic valve leaflets. ??No aortic valve stenosis. No aortic valve regurgitation. Mitral Valve Posterior mitral annular calcification. ??Mild thickening mitral valve leaflets. ?? No mitral valve stenosis. Trivial mitral valve regurgitation. Tricuspid Valve Normal tricuspid valve. Trivial tricuspid valve regurgitation. Pulmonic Valve Pulmonary valve was not well visualized. Pericardium Prominent circumferential and anterior cardiac fat; no pericardial effusion. Aorta Normal aortic sinus of Valsalva dimension (3.6 cm). Normal ascending aorta dimension (3.6 cm). Inferior Vena Cava Normal inferior vena cava with normal inspiratory collapse. MEASUREMENTS ??(Male / Female) Normal Values 2D MEASUREMENTS AND LV FUNCTION IVS Diastolic Thickness ? 0.926 cm ?< 1.1 cm / < 1.0 cm LV Diastolic Diameter PLAX ?4.8 cm ?4.2 - 5.9 / 3.9 - 5.3 cm LV Diastolic Diameter Index ? 2.61 cm/m?? LVPW Diastolic Thickness ?0.865 cm ?< 1.1 cm / < 1.0 cm LV Systolic Diameter PLAX ? 2.83 cm LV Systolic Diameter Index ?1.54 cm/m?? LVOT Diameter ? 2.1 cm LVOT Cardiac Output ? 3.76 l/min LVOT Cardiac Index ?1.94 l/min??m?? LVOT Stroke Volume ?69.6 ml Stroke Volume Index ? 36 ml/m?? LA Volume MOD BP ?38.1 ml LA Volume Index MOD BP ?20.7 ml/m?16 - 34 ml/m?? RV Diastolic Basal Diameter ? 4.07 cm LV Mass ? 147 g LV Mass Index ? 77.3 g/m?? Sinuses of Valsalva Diameter(d) ?? 3.6 cm Ascending Aorta Diameter(s) ? 3.65 cm IVC Diameter Expiration ? 1.17 cm Ascending Aorta Index ? 1.99 cm/m?? DIASTOLOGY Mitral E Point Velocity ? 0.646 m/sec ? 0.70 - 1.02 m/sec Mitral A Point Velocity ? 1.07 m/sec ?0.06 - 1.06 m/sec Mitral E to A Ratio ? 0.604 ? 1.1 - 2.1 MV Deceleration Time ?227 msec ?167 - 231 msec LV E' Lateral Velocity ?0.0587 m/sec Mitral E to LV E' Lateral Ratio ?? 11 LV E' Septal Velocity ? 0.0522 m/sec Mitral E to LV E' Septal Ratio ?12.4 AORTIC VALVE AV Peak Velocity ?1.14 m/sec ?< 2.0 m/sec AV Peak Gradient ?5.2 mmHg AV Mean Gradient ?3 mmHg AV Velocity Time Integral ? 29 cm LVOT Peak Velocity ?0.936 m/sec LVOT Velocity Time Integral ? 20.1 cm AV Area Cont Eq vti ? 2.4 cm?? AV Area Cont Eq pk ?2.84 cm?? AV Dimensionless Index ?0.693 TRICUSPID VALVE AND ESTIMATED PRESSURES Right Atrial Pressure ? 3 mmHg HCM DATA LVOT JOSE L (r) ?3.5 mmHg Aortic Root ZScore: 0.27 Mars Reese MD (Electronically Signed) [facility] Accredited Site Final Date: 24 February 2024 18:30 ICD-10 Codes: R40.20; I47.10 Procedure Note Mars Reese MD - 02/24/[address] [address] Main: Transthoracic Echo Report SHOSHANA RUELAS [employer] ID: [id number] Age: 89 : 1935 Ordering Provider:RIA MILLER Exam Date: 02/24/2024 13:29 Gender: F Warp Dyeing Tender: ASO Height: 62 in BSA: 1.84 m?? BP: 140 / 80 Weight: 182 lbs BMI: 33.3 kg/m?? HR: 54 Location: [facility] Rhythm: SinusBradycardia Procedure Components: 2D imaging with contrast, Color Doppler, SpectralDoppler Indications: Loss of consciousness (HC); PSVT (paroxysmalsupraventricular tachycardia) (HC) Technical Quality: Poor Contrast: Definity Constrast Dose (ml): .3 [facility]#: [id number] Final Conclusion Technically challenging examination with limited endocardial and valvulardefinition, despite the use of echo contrast. 1. Normal left ventricular chamber size and systolic function; visuallyestimated ejection fraction 65%. 2. No focal regional wall motion abnormalities. 3. Right ventricle not well-visualized; borderline/upper normal rightventricular chamber size with borderline/low normal systolic function. 4. Moderate left atrial enlargement. 5. Aortic valve sclerosis without stenosis or regurgitation. 6. Unable to estimate right ventricular systolic pressure. No previous study available for comparison. Estimated EF: 65% FINDINGS Left Ventricle Normal left ventricular chamber size. Normal leftventricular wall thickness. Normal left ventricular systolic function. Estimated left ventricular ejection fraction is 65%. Noregional wall motion abnormalities. Diastolic Function Indeterminate left ventricular diastolic function. Right Ventricle Right ventricle not well-visualized; borderline/uppernormal right ventricular chamber size. Borderline/low normal right ventricular systolic function. Right ventricular systolic pressure cannot be estimated due to inabilityto detect peak tricuspid regurgitation Doppler velocity. Left Atrium Moderate left atrial enlargement. Right Atrium Right atrium not well-visualized. Atrial Septum No evidence of inter-atrial shunt by color flow Doppler. Aortic Valve Aortic valve not well-visualized; trileaflet aortic valve.Thickened/sclerotic aortic valve leaflets. No aortic valve stenosis. No aortic valve regurgitation. Mitral Valve Posterior mitral annular calcification. Mild thickeningmitral valve leaflets. No mitral valve stenosis. Trivial mitral valve regurgitation. Tricuspid Valve Normal tricuspid valve. Trivial tricuspid valveregurgitation. Pulmonic Valve Pulmonary valve was not well visualized. Pericardium Prominent circumferential and anterior cardiac fat; nopericardial effusion. Aorta Normal aortic sinus of Valsalva dimension (3.6 cm). Normalascending aorta dimension (3.6 cm). Inferior Vena Cava Normal inferior vena cava with normal inspiratorycollapse. MEASUREMENTS (Male / Female) Normal Values 2D MEASUREMENTS AND LV FUNCTION IVS Diastolic Thickness 0.926 cm < 1.1 cm / < 1.0cm LV Diastolic Diameter PLAX 4.8 cm 4.2 - 5.9 / 3.9 -5.3 cm LV Diastolic Diameter Index 2.61 cm/m?? LVPW Diastolic Thickness 0.865 cm < 1.1 cm / < 1.0cm LV Systolic Diameter PLAX 2.83 cm LV Systolic Diameter Index 1.54 cm/m?? LVOT Diameter 2.1 cm LVOT Cardiac Output 3.76 l/min LVOT Cardiac Index 1.94 l/min??m?? LVOT Stroke Volume 69.6 ml Stroke Volume Index 36 ml/m?? LA Volume MOD BP 38.1 ml LA Volume Index MOD BP 20.7 ml/m?? 16 - 34 ml/m?? RV Diastolic Basal Diameter 4.07 cm LV Mass 147 g LV Mass Index 77.3 g/m?? Sinuses of Valsalva Diameter(d) 3.6 cm Ascending Aorta Diameter(s) 3.65 cm IVC Diameter Expiration 1.17 cm Ascending Aorta Index 1.99 cm/m?? DIASTOLOGY Mitral E Point Velocity 0.646 m/sec 0.70 - 1.02m/sec Mitral A Point Velocity 1.07 m/sec 0.06 - 1.06m/sec Mitral E to A Ratio 0.604 1.1 - 2.1 MV Deceleration Time 227 msec 167 - 231 msec LV E' Lateral Velocity 0.0587 m/sec Mitral E to LV E' Lateral Ratio 11 LV E' Septal Velocity 0.0522 m/sec Mitral E to LV E' Septal Ratio 12.4 AORTIC VALVE AV Peak Velocity 1.14 m/sec < 2.0 m/sec AV Peak Gradient 5.2 mmHg AV Mean Gradient 3 mmHg AV Velocity Time Integral 29 cm LVOT Peak Velocity 0.936 m/sec LVOT Velocity Time Integral 20.1 cm AV Area Cont Eq vti 2.4 cm?? AV Area Cont Eq pk 2.84 cm?? AV Dimensionless Index 0.693 TRICUSPID VALVE AND ESTIMATED PRESSURES Right Atrial Pressure 3 mmHg HCM DATA LVOT JOSE L (r) 3.5 mmHg Aortic Root ZScore: 0.27 Mars Reese MD (Electronically Signed) [facility] Accredited Site Final Date: 24 February 2024 18:30 ICD-10 Codes: R40.20; I47.10 Ria Miller MD ECHO ORD * XR DXA BONE DENSITY 2 SITES [...] recommended in 3-5 years. Haydee Eugene PA-C [facility] 01/12/2023 Narrative 01/12/2023 2:08 PM CDT For Patients: Results are automatically released to your [facility] ([employer]) account once available, in compliance with federal regulations. This means that you may see your results before your provider has had a chance to review them. Please allow 2-3 business days for your provider to comment on the results. XR DXA Bone Mineral Density (BMD) EXAM LOCATION: [facility] [address] [facility] [id number] PATIENT NAME: Shoshana Ruelas DATE OF : 1935 EXAM DATE: 01/04/2023 [...] two scanners are made by the same rock picker. 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
[2024-05-18 13:14] LABS: Troponin, Point-of-Care* 0.12 ng/ml (0.01-0.04)
[2024-05-18] MEDS: ASPIRIN 81 MG TAB.CHEW 324 MG PO (13:23)
--- NOTE | 2024-05-18 15:09 | P.IMHP_ITS ---
Hospitalist- H&P: HPI History of Present Illness Date Seen: 05/18/24 Chief complaint: Severe chest pain, nausea Narrative: ADMISSION HISTORY AND PHYSICAL - HOSPITALIST Chief Complaint: Chest pain, Hypertensive urgency, NSTEMI HPI: 89 y/o WF with a hx PVST, ISHMAEL, DM II, mild dementia who presented to our ED with acute severe substernal chest pain. Pain started just minutes before presentation and was severe. she was moaning and holding her chest. No triggers the daughter can tell. She wasn't eating, she had just climbed into the car to leave for (ironically) a cardiology appt in [place]. She also reports b/l arm pain. mild nausea, no vomiting. no coughing. she has MCI and was holding her chest and the daughter (who was with her picking her from [facility]) brought her across the street to our ED. She has been doctoring for uncontrolled diabetes and a tachy/dianna arrhythmia that had been evaluated with a recent ZIO patch - no pacemaker was deemed necessary. She has long standing HTN. Immediately severe HTN was noted at 211/106 and POC trop was negative. No evidence of dissection; she was treated with labetalol. She completed a workup with the ED and found a small bump in her POC trop. 0.01 --> 0.12 without ECG changes. ER COURSE: workup included advanced imaging, labs - d/w cardiology. ECG. CODE STATUS: DNR/DNI EMERGENCY CONTACT PLAN: Diana Power Rel To Pat Daughter Cell I've updated the PFSH, medications and allergies in the Expanse tabs. INVESTIGATIONS: LABS/MICRO/ECG/IMAGING CBC unremarkable INR 1.01 Blood gas normal Mild hyponatremia, 133. Lactate originally was 2.5 still at 2.0 -> 2 hours later Normal renal function. Point of care troponin 0.01 which elevated to 0.12, 2 hours a serum level was 1.18 BNP 39, normal CRP. Normal lipase. Urine unremarkable Chest abdomen pelvis CT 1. No evidence of acute aortic syndrome or pulmonary embolism. 2. Apparent 1.7 cm right breast mass with irregular margins located at 9 o`clock, middle depth (series 4; image 50). Nonemergent diagnostic breast imaging is recommended (mammography and ultrasound) for further evaluation. RECOMMENDATION: NONEMERGENT DIAGNOSTIC IMAGING OF THE BREASTS. Chest x-ray, no acute finding EKGs: two were done in the ED -NSR, no significant foreign exchange services manager time, no evidence of acute ischemia. scanned in under cardiovascular ECHO Final Conclusion 02/24/24 Technically challenging examination with limited endocardial and valvular definition, despite the use of echo contrast. ? 1. Normal left ventricular chamber size and systolic function; visually estimated ejection fraction 65%. 2. No focal regional wall motion abnormalities. 3. Right ventricle not well-visualized; borderline/upper normal right ventricular chamber size with borderline/low normal systolic function. 4. Moderate left atrial enlargement. 5. Aortic valve sclerosis without stenosis or regurgitation. 6. Unable to estimate right ventricular systolic pressure. ? No previous study available for comparison. Estimated EF: 65% REVIEW OF SYSTEMS: 12-point ROS completed with patient and negative unless otherwise stated in HPI or below. PHYSICAL EXAM: CONSTITUTIONAL: a little confused but fairly intact story telling; gets lost in her details. NAD. eating yogurt in bed. daughter bedside. VITAL SIGNS: see record. HEENT: Normocephalic, atraumatic. PERRL, EOMI, conjunctivae pink, no scleral icterus. Ears and nose externally normal. Pharynx normal. NECK: No JVD. No carotid bruit, no thyromegaly, no adenopathy. CHEST: Clear to auscultation bilaterally HEART: S1 and S2 normal. No harsh murmurs. Edema 1+ MUSCULOSKELETAL: No gross joint deformity or swelling. NEURO: Cranial nerves intact. Grossly intact. No asymmetric findings. SKIN: No rashes, petechiae, concerning changes PSYCHIATRIC: Euthymic. ADMIT TO MEDSURG: FLOOR CARE DVT: Lovenox GI: PO intake Time spent: Today I spent 75 minutes seeing the patient, discussing the patient with ER staff, reviewing Expanse and EPIC notes/diagnostics, discussing the care plan with our care time that includes social work, PT/OT, pharmacy, RT, alf and documenting my impressions and plan in the medical record. [facility] Medical History (Updated 05/18/24 @ 21:27 by Liberty Thomas MD) Osteoarthritis of left knee ?M17.12 - Unilateral primary osteoarthritis, left knee (ICD-10) Osteoarthritis of right hip ?M16.11 - Unilateral primary osteoarthritis, right hip (ICD-10) Osteoarthritis of right shoulder ?M19.011 - Primary osteoarthritis, right shoulder (ICD-10) Arthritis of right acromioclavicular joint ?M19.011 - Primary osteoarthritis, right shoulder (ICD-10) Osteoarthritis of left shoulder ?M19.012 - Primary osteoarthritis, left shoulder (ICD-10) Left rotator cuff tear arthropathy ?M75.102 - Unspecified rotator cuff tear or rupture of left shoulder, not specified as traumatic (ICD-10) ?M12.812 - Other specific arthropathies, not elsewhere classified, left shoul [place]ip[place] (ICD-10) Memory loss ?R41.3 - Other amnesia (ICD-10) Supraventricular tachycardia ?I47.1 - Supraventricular tachycardia (ICD-10) Thyroid cancer ?C73 - Malignant neoplasm of thyroid gland (ICD-10) Right foot injury (~2003) ?S99.921A - Unspecified injury of right foot, initial encounter (ICD-10) Diverticulitis ?K57.92 - Diverticulitis of intestine, part unspecified, without perforation or abscess without bleeding (ICD-10) Surgical History H/O 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) History of carpal tunnel surgery of left wrist (~1990) ?Z98.890 - Other specified postprocedural states (ICD-10) History of carpal tunnel surgery of right wrist (~1988) ?Z98.890 - Other specified postprocedural states (ICD-10) Social History What is your current living situation?: I presently have a place to live Problems where you live: no known problems Problems where you live details: NA In the past 12 months, utilities in danger of being shut off: no In past 12 months, lack of transportation kept you from medical appts, meetings, work, or getting things needed for daily living: no In the past 12 mos, have been you worried that your food would run out before you had money to buy more?: never true In the past 12 mos, the food you bought just didn't last and you didn't have money to buy more?: never true Highest level of school completed/degree received: high school graduate Smoking Status: Never smoker Do you use any of these nicotine containing products: None Second hand tobacco smoke exposure: No How often do you have a drink containing alcohol: never How often do you have six or more drinks on one occasion: Never AUDIT-C Alcohol total score: 0 Non-prescribed substance use: denies use Caffeine: Yes How often does anyone, including family, friends and others, physically hurt you : never How often does anyone, including family, friends and others, insult or talk down to you: never How often does anyone, including family, friends and others, threaten you with harm: never How often does anyone, including family, friends and others, scream or curse at you: never service: No Meds Home Medications and Allergies Home Medications ?Medication ?Instructions ?Recorded ?Confirmed ?Type aspirin 81 mg tablet,delayed 81 mg PO DAILY 06/24/22 05/18/24 History release [id number] 250 mg-dha 90 1 cap PO QAM 06/24/22 05/18/24 History mg-epa 160 ck-kved-jmet-zeax capsule (Ocuvite Adult 50 Plus) pravastatin 20 mg tablet 20 mg PO HS 06/24/22 05/18/24 History glyburide 5 mg tablet 10 mg PO .BIDAC 02/09/24 05/18/24 History levothyroxine 112 mcg tablet 112 mcg PO DAILY 02/09/24 05/18/24 History metoprolol succinate 25 mg 25 mg PO DAILY 02/09/24 05/18/24 History tablet,extended release 24 hr cholecalciferol (vitamin D3) 50 50 mcg PO DAILY 05/18/24 05/18/24 History mcg (2,000 unit) capsule empagliflozin 10 mg tablet 10 mg PO DAILY 05/18/24 05/18/24 History (Jardiance) valsartan 80 mg tablet 80 mg PO DAILY 05/18/24 05/18/24 History Allergies Allergy/AdvReac Type Severity Reaction Status Date / Time hydrochlorothiazide AdvReac Headache Verified 05/18/24 10:23 Exam Const: Vital Signs, click to edit/add: Vital Signs - 24 hr 05/18/24 10:23 05/18/24 10:25 05/18/24 10:27 Temperature 97.5 F L Pulse Rate 75 Pulse Rate [Pulse Oximeter] 78 Respiratory Rate 20 Blood Pressure 211/106 H Blood Pressure [Ri ght Upper Arm] 211/106 H Pulse Oximetry 94 95 Oxygen Delivery Me od Room Air 05/18/24 10:30 05/18/24 10:32 05/18/24 10:45 Temperature Pulse Rate 77 77 80 Pulse Rate [Pulse Oximeter] Respiratory Rate Blood Pressure 191/98 H Blood Pressure [Ri ght Upper Arm] Pulse Oximetry 95 95 93 Oxygen Delivery [facility] 05/18/24 10:47 05/18/24 10:49 05/18/24 11:00 Temperature Pulse Rate 75 67 Pulse Rate [Pulse Oximeter] Respiratory Rate Blood Pressure 184/93 H Blood Pressure [Ri ght Upper Arm] Pulse Oximetry 94 97 97 Oxygen Delivery [facility] 05/18/24 11:02 05/18/24 11:15 05/18/24 11:17 Temperature Pulse Rate 68 72 70 Pulse Rate [Pulse Oximeter] Respiratory Rate Blood Pressure 184/89 H 178/88 H Blood Pressure [Ri ght Upper Arm] Pulse Oximetry 94 94 94 Oxygen Delivery [facility] 05/18/24 11:18 05/18/24 11:30 05/18/24 11:31 Temperature Pulse Rate 67 69 68 Pulse Rate [Pulse Oximeter] Respiratory Rate Blood Pressure 179/89 H Blood Pressure [Ri ght Upper Arm] Pulse Oximetry 93 94 90 [facility] 05/18/24 11:55 05/18/24 12:00 05/18/24 12:02 Temperature Pulse Rate 80 78 68 Pulse Rate [Pulse Oximeter] Respiratory Rate Blood Pressure 157/81 H Blood Pressure [Ri ght Upper Arm] Pulse Oximetry 94 94 93 Oxygen Delivery [facility] 05/18/24 12:42 05/18/24 12:45 05/18/24 13:00 Temperature Pulse Rate 66 62 69 Pulse Rate [Pulse Oximeter] Respiratory Rate Blood Pressure Blood Pressure [Ri ght Upper Arm] Pulse Oximetry 94 91 94 [facility] 05/18/24 13:15 Temperature Pulse Rate 63 Pulse Rate [Pulse Oximeter] Respiratory Rate Blood Pressure Blood Pressure [Ri ght Upper Arm] Pulse Oximetry 90 Oxygen Delivery [facility] Hospitalist - H&P: Result Labs Labs: Short CBC 05/18/24 Range/Units 10:38 WBC 9.62 (4.50-11.00) K/uL Hgb 13.2 (12.0-16.0) gm/dL Hct 39.6 (33.0-51.0) % Plt Count 314 (140-440) K/uL BMP 05/18/24 10:38 Sodium 133 L Potassium 4.2 Chloride 98 Carbon Dioxide 25 BUN 20 Creatinine 0.7 Glucose 335 H Calcium 8.9 Cardiac Enzymes 05/18/24 Range/Units 10:38 Troponin I < 0.01 L (0.01-0.04) ng/mL Liver Function 05/18/24 Range/Units 10:38 Total Bilirubin 1.3 (0.1-1.5) mg/dL Direct Bilirubin 0.2 (0.0-0.5) mg/dL AST 26 (12-35) U/L ALT 23 (4-35) U/L Alkaline Phosphatase 74 (40-150) U/L Albumin 4.4 (3.3-5.0) g/dL Assessment and Plan Assessment and plan (1) Non-ST elevated myocardial infarction (non-STEMI): Problem comment: -troponin increasing from 0.02 --> 0.12 --> 1.18 -No ecg changes -pain resolved without intervention in the ED, no further episodes -echo planned 05/18 -given asp in the ED, will continue baby aspirin each am -increasing her home dose of metoprolol -increasing her home dose of pravastatin -with the >1 trop will load Plavix, no nitro given (no further pain) -d/w with family regarding transfer, angiogram, goals of care --> quality of life is our focus Status: Acute (2) Hypertensive urgency: Problem comment: -treated with labetalol, metoprolol. will continue home meds - adjusting metoprolol from 25 --> 50mg daily. goal is 160/90 -echo was recent but with new ischemic event - will check LV function 05/19 w/echo -monitor for symptoms/syncope -d/w cardiology in the morning Status: Acute (3) Dementia: Problem comment: -mild to moderate cognitive decline. Recently added services at [facility]. -evidence of sundowning noted on 05/18 Status: Acute (4) Diabetes: Problem comment: 05/15/24 - A1C 11.0 on glyburide, Jardiance (just added) QID bedside glucose monitoring SSI Status: Acute (5) Breast mass, right: Problem comment: 1.7 cm right breast mass with irregular margins - first noted on chest CT 05/18/24 -family and patient know (not sure patient will retain info) -will stabilize the cardiac situation and consider further appts for limited (if any) treatment of her suspected cancer Status: Acute (6) Hypercholesteremia: Problem comment: increasing pravastatin Status: Acute (7) Hypertension: Problem comment: increasing metoprolol continue valsartan Status: Acute
[2024-05-18] MEDS: METOPROLOL TARTRATE 25 MG TABLET PO (15:20)
[2024-05-18 18:13] LABS: Troponin I* 1.81 ng/mL (0.01-0.04)
[2024-05-18] MEDS: glyBURIDE 5 MG TABLET 10 MG PO (19:00)
--- NOTE | 2024-05-18 19:25 | PC.NURSE ---
Nursing Care Hours: [id number] Pt this shift agitated upon arrival, stating hunger as the cause. After a snack, pt calm and cooperative. No c/o pain. HTN noted without symptoms. Manual tolerated better than automatic. Skin intact. SB assist with walker. Short term forgetfulness noted, pt repeating statements questions. Pt talkative and pleasant. Denies nausea at this time. EKG done with troponin draw at 1700. Tolerated regular meal. Voided x2, continent. BS at dinner 165, no insulin available in NOV. Order retrieved from hospitalist and pt will receive at scheduled time.
[2024-05-18] MEDS: VALSARTAN 80 MG TABLET PO (21:06)
[2024-05-18] MEDS: PRAVASTATIN SODIUM 20 MG TABLET PO (21:12)
[2024-05-18] MEDS: SODIUM CHLORIDE 0.9 % (FLUSH) 10 ML SYRINGE 5 ML IVF ×2 (21:13→21:56)
[2024-05-18] MEDS: INSULIN ASPART 100 UNIT/ML SUBCUT (21:13)
[2024-05-18] MEDS: CLOPIDOGREL 75 MG TABLET 300 MG PO (21:27)
[2024-05-18] MEDS: METOPROLOL TARTRATE 1 MG/ML inj 5 MG IVP (21:55)
[2024-05-19] VITALS (8 sets, daily range): BP systolic 126–181; BP diastolic 67–84; PULSE 57–94; RESP 16–18; TEMP 36.2–37.6; O2SAT 93–96
[2024-05-19] MEDS: METOPROLOL TARTRATE 1 MG/ML inj 5 MG IVP ×3 (01:25→09:16)
[2024-05-19] MEDS: LEVOTHYROXINE 112 MCG TABLET PO (06:05)
[2024-05-19 06:44] LABS: HCO3 VBG 30 mmol/L (21-28); PCO2 VBG 47 mmHG (40-50); PO2 VBG 31.3 mmHG (25-47); pH VBG 7.404 (7.32-7.43)
--- NOTE | 2024-05-19 06:48 | PC.NURSE ---
End of shift [id number]: A&O with some forgetfulness but pleasant and cooperative. Hypertensive VS otherwise stable. Pt denies any CP or SOB. Up w/ SBA walker and gait belt. Pt woke up around 0330 and stated she was wide awake. Snack given and pt sitting up in bed ?resting?. Using call light appropriately.
[2024-05-19 06:53] LABS: Hematocrit 38.4 % (33.0-51.0); Mean Corpuscular HGB Conc 34 gm/dL (32-36); Mean Corpuscular Hemoglobin 31 pg (26-34); Mean Corpuscular Volume 92 fL (80-100); Platelet Count* 313 K/uL (140-440); Red Blood Count 4.16 m/uL (4.00-5.20); White Blood Count* 11.55 K/uL (4.50-11.00)
[2024-05-19 06:54] LABS: Slide Review Reflex No
[2024-05-19 07:24] LABS: Albumin* 4.2 g/dL (3.3-5.0); Chloride* 97 mmol/L (96-114)
[2024-05-19 07:25] LABS: Potassium* 4.4 mmol/L (3.6-5.1); Sodium* 132 mmol/L (135-149)
[2024-05-19 07:27] LABS: Bilirubin Total* 1.1 mg/dL (0.1-1.5); Creatinine* 0.7 mg/dL (0.5-1.5); Est. Creatinine Clearance* 30.76; Estimated Glomerular Filt Rate 83 ml/min
[2024-05-19 07:28] LABS: Alanine Aminotransferase* 26 U/L (4-35); Alkaline Phosphatase* 68 U/L (40-150); Anion Gap 8 mEq/L (7-15); Aspartate Amino Transferase* 67 U/L (12-35); Blood Urea Nitrogen* 21 mg/dL (7-30); Calcium* 8.8 mg/dL (8.4-10.6); Carbon Dioxide* 27 mmol/L (20-32); Glucose* 223 mg/dL (60-115); Total Protein* 7.2 g/dL (6.0-8.3)
[2024-05-19 07:30] LABS: C Reactive Protein* 0.8 mg/dL (0.5-1.0)
[2024-05-19 07:47] LABS: NT Pro B Type NatriureticPept* 445 pg/mL; Troponin I* 9.37 ng/mL (0.01-0.04)
[2024-05-19] MEDS: glyBURIDE 5 MG TABLET 10 MG PO (09:17)
[2024-05-19] MEDS: CLOPIDOGREL 75 MG TABLET PO (09:17)
[2024-05-19] MEDS: ASPIRIN 81 MG TABLET EC PO (09:17)
[2024-05-19] MEDS: METOPROLOL SUCCINATE (XL) 25 MG TAB 50 MG PO (09:18)
[2024-05-19] MEDS: EMPAGLIFLOZIN 10 MG TABLET PO (09:18)
[2024-05-19] MEDS: INSULIN ASPART 100 UNIT/ML SUBCUT ×2 (09:20→12:25)
[2024-05-19] MEDS: SODIUM CHLORIDE 0.9 % (FLUSH) 10 ML SYRINGE 5 ML IVF (09:25)
[2024-05-19 11:21] LABS: Hematocrit 39.3 % (33.0-51.0); Hemoglobin* 13.2 gm/dL (12.0-16.0); Mean Corpuscular HGB Conc 34 gm/dL (32-36); Mean Corpuscular Hemoglobin 31 pg (26-34); Mean Corpuscular Volume 92 fL (80-100); Platelet Count* 312 K/uL (140-440); Red Blood Count 4.28 m/uL (4.00-5.20); White Blood Count* 11.19 K/uL (4.50-11.00)
[2024-05-19 11:34] LABS: Slide Review Reflex No
--- NOTE | 2024-05-19 11:34 | REH.PT ---
Per MD, hold PT/OT evals due to unstable medical/cardiac condition. Patient is transferring to [facility] when bed available. Will complete orders and sign off.
[2024-05-19 11:37] LABS: INR 0.97 (0.91-1.10); Partial Thromboplastin Time* 29 Seconds (23-33); Prothrombin Time 13.5 Seconds
[2024-05-19] MEDS: HEPARIN 25,000 UNIT/500 ML BAG 19 UNIT IV (11:41)
[2024-05-19] MEDS: PERFLUTREN LIPID MICROSPHERES 2 ML VIAL IV (11:48)
[2024-05-19] MEDS: NITROGLYCERIN/DEXTROSE 25,000 MCG/250 ML BOTTLE 3 MCG IVPB (12:08)
[2024-05-19] MEDS: CLOPIDOGREL 75 MG TABLET 300 MG PO (13:42)
[2024-05-19 14:17] LABS: Troponin I* 8.06 ng/mL (0.01-0.04)
--- NOTE | 2024-05-19 15:06 | PC.NURSE ---
transfer. pt has been pleasant. alert x2 she has some confusion she has dementia. Pt denies any CP or SOB. she is Up w/ SBA walker and gait belt. later she was made bed rest and unit and NPO. tele shows NSR, 1st degree HB, LSC, she was eating, drinking and voiding with no problems. she does not like BP cuff and SL in the left A/c. new SL was started in the right FA. heparin and nitro drips where started. she got transfer to [place] [id number] by [facility]>
--- NOTE | 2024-05-19 16:55 | P.DS_ITS ---
DS: Providers Provider Date Seen: 05/19/24 Date of admission: 05/18/24 17:19 Primary care physician: Marcia Campa DO Admitting Clinician: Liberty Thomas MD Attending Physician on discharge: Liberty Thomas MD Date of Discharge: 05/19/24 DS: Diagnosis Discharge Diagnosis (1) Non-ST elevated myocardial infarction (non-STEMI): Status: Acute Problem details: -troponin increasing from 0.02 --> 0.12 --> 1.18--> 9.37--> 8.06 -No ecg changes on initial EKG, but there were evolutionary changes with inverted T waves in leads II, III, aVF, V3-V6 -pain resolved without intervention in the ED, no further episodes -echo 05/19 showed new septal/apical WMA, EF was preserved. -given asp 325 mg and Plavix 300 mg in the ED, continued baby aspirin in am and given a second dose of Plavix 300 mg after consultation by cardiology over the phone -increased her home dose of metoprolol -increased her home dose of pravastatin -d/w with family regarding transfer, angiogram, goals of care --> quality of life is our focus. Patient reports she has a good quality of life and was agreeable to angiography as recommended by cardiology so she was transferred to [place] for further management. Prior to discharge, she was initiated on heparin and nitro gtts (2) Hypertensive urgency: Status: Acute Problem details: -treated with labetalol, metoprolol. will continue home meds - adjusting metoprolol from 25 --> 50mg daily. goal is 160/90 -echo was recent but with new ischemic event - checked 05/19 w/echo which showed new WMA, preserved EF -d/w cardiology and recommended transfer for angiography (3) Dementia: Status: Acute Problem details: -mild to moderate cognitive decline. Recently added services at [facility]. -evidence of sundowning noted on 05/18 (4) Diabetes: Status: Acute Problem details: 05/15/24 - A1C 11.0 on glyburide, Jardiance (just added) QID bedside glucose monitoring SSI (5) Breast mass, right: Status: Acute Problem details: 1.7 cm right breast mass with irregular margins - first noted on chest CT 8/29/24 -family and patient know (not sure patient will retain info) -will stabilize the cardiac situation and consider further appts for limited (if any) treatment of her suspected cancer (6) Hypercholesteremia: Status: Acute Problem details: increasing pravastatin (7) Hypertension: Status: Acute Problem details: increasing metoprolol continue valsartan DS: Summary Hospital Course Hospital Course: Patient was admitted after she presented with severe chest tightness. She was diagnosed with NSTEMI and troponins yogi to greater than 9 from an initial normal result. She had evidence of evolutionary EKG changes with inverted T waves in leads II, III, aVF, V3-V6. Case was discussed with cardiology by phone and NSTEMI felt unlikely to be secondary to hypertensive urgency. Patient was agreeable to undergo angiography and likely would be agreeable to stenting, but if invasive surgery was recommended, she would want to think more about her options. She was accepted in transfer to [facility] for further management. Status at Discharge Functional status at discharge: bed bound Time Spent with Patient Time attestation: Total time spent providing and/or coordinating discharge services: 75 minutes Time spent: Greater than 30 minutes Exam Narrative: Exam Narrative: General: No distress HEENT: NCAT, MMM Resp: CTAB, no crackles, no wheezes CV: RRR, no m/g/r appreciated Neuro: Mildly confused, but follows discussion quite well. No lateralizing deficits noted Const: Vital Signs, click to edit/add: Vital Signs - 24 hr 05/18/24 17:19 05/18/24 17:19 05/18/24 18:28 Temperature Pulse Rate Pulse Rate [Left P ulse Oximeter] 64 Respiratory Rate 18 18 Blood Pressure [Ri ght Arm] 170/90 H Pulse Oximetry 95 95 93 Oxygen Delivery Me thod Room Air Room Air 05/18/24 19:00 05/18/24 22:56 05/19/24 01:22 Temperature 97.8 F 97.2 F L Pulse Rate 55 L Pulse Rate [Left P ulse Oximeter] 62 65 Respiratory Rate 18 18 Blood Pressure [Ri ght Arm] 179/87 H 181/83 H Pulse Oximetry 93 93 Oxygen Delivery Me thod Room Air Room Air 05/19/24 05:47 05/19/24 07:06 05/19/24 07:30 Temperature 99.6 F 98.1 F Pulse Rate 57 L Pulse Rate [Left P ulse Oximeter] 63 62 Respiratory Rate 16 16 Blood Pressure [Ri ght Arm] 157/73 H 158/80 H Pulse Oximetry 94 93 Oxygen Delivery Me thod Room Air Room Air 05/19/24 07:30 05/19/24 11:03 05/19/24 12:15 Temperature 98.3 F 98.1 F Pulse Rate Pulse Rate [Left P ulse Oximeter] 62 61 67 Respiratory Rate 16 18 18 Blood Pressure [Ri ght Arm] 146/84 H 160/84 H Pulse Oximetry 96 95 Oxygen Delivery Me thod Room Air Room Air 05/19/24 13:04 05/19/24 13:45 Temperature 98.1 F 98.1 F Pulse Rate Pulse Rate [Left P ulse Oximeter] 84 94 Respiratory Rate 18 18 Blood Pressure [Ri ght Arm] 126/76 132/67 Pulse Oximetry 94 95 Oxygen Delivery Me thod Room Air Room Air DS: Data Data Completed and Pending Labs on day of discharge: Labs from last 24 hours 05/19/24 05/19/24 05/18/24 11:10 05:57 17:05 WBC 11.19 H 11.55 H RBC 4.28 4.16 Hgb 13.2 13.0 Hct 39.3 38.4 MCV 92 92 MCH 31 31 MCHC 34 34 Plt Count 312 313 INR 0.97 APTT 29 VBG pH 7.404 VBG pCO2 47 VBG pO2 31.3 VBG HCO3 30 H Sodium 132 L Potassium 4.4 Chloride 97 Carbon Dioxide 27 Anion Gap 8 BUN 21 Creatinine 0.7 Estimated Creat Clear 30.76 Estimated GFR 83 Glucose 223 H Calcium 8.8 Magnesium 2.0 Total Bilirubin 1.1 AST 67 H ALT 26 Alkaline Phosphatase 68 Troponin I 8.06 H* 9.37 H* 1.81 H* C-Reactive Protein 0.8 NT-Pro-B Natriuret Pep 445 Total Protein 7.2 Albumin 4.2 TSH 10.400 H Discharge Plan Discharge Disposition: er Acute Care Hospital Discharge Location: [facility] Date of Admission: 05/18/24 17:19 Attending Provider on Discharge: Stephanie Villalta Primary Care Provider: Marcia Campa Discharge Orders: Transfer of Care to Other Hospital (ORDER); Ordered 05/19/24 Ordered By: Stephanie Villalta
== END 2024-05-19 13:45 | disposition short-term general hospital (02) | DRG 281 ==
LOC: ED 12:58 → MEDSURG 15:28
PROVIDERS: Family Medicine; Admitting Provider Family Medicine; Emergency Provider Family Medicine; PCP Family Medicine; Visit Provider Family Medicine
DX: I21.4 Non-ST elevation (NSTEMI) myocardial infarction (principal); I47.10 Supraventricular tachycardia, unspecified; I10 Essential (primary) hypertension; I16.0 Hypertensive urgency; F03.A0 Unspecified dementia, mild, without behavioral disturbance, psychotic disturbance, mood disturbance, and anxiety; N63.0 Unspecified lump in unspecified breast; E78.00 Pure hypercholesterolemia, unspecified; E11.9 Type 2 diabetes mellitus without complications; Z79.84 Long term (current) use of oral hypoglycemic drugs
CPT/HCPCS: 36415; 71045; 71275; 74174; 80053; 82248; 82803; 82962; 83605; 83690; 83735; 83880; 84443; 84484; 85025; 85027; 85379; 85610; 85730; 86140; 93005; 93306; 94761; 99285; A9270; J1644; J2405; J7050; Q9957; Q9967

== ENCOUNTER 2024-05-19 14:17 | Outpatient (CLI) | payer MEDICARE, BC, SELFPAY ==
--- OUTSIDE RECORDS SUMMARY | 2024-05-21 02:36 | XMS_ITS | Clinical Summary ---
Author Organization [facility] Address [place], [place] [address] Care Team Providers Care Marketing Instructor Name Role Phone Lesli Cespedes Lyssa Unavailable Marcia Campa DO Primary Care Provider Allergies Active Allergy Reactions Criticality Noted Date Comments D And C Yellow No.10 Itching 01/20/2010 Did not tolerate aspirin with yellow dye Hydrochlorothiazide 02/10/2007 bad reaction Metformin Diarrhea 04/09/2019 lower dose 1000mg or less was ok to only occasionally loose. Medications Medication Sig Dispensed Refills Start Date End Date Status ASPIRIN 81 MG TAB, DELAYED RELEASE Take 81 mg by mouth once daily with a meal. DO NOT CRUSH OR CHEW. 0 7 Suspended cholecalciferol (VITAMIN D) 2,000 unit capsule Take 1 capsule by mouth once daily. 0 1 Suspended medication order composer I Caps three times per week 0 5 Suspended vitamin-folic acid 1 mg ( RX) tablet/capsuleIndica tions:Osteoporosis, unspecified osteoporosis type, unspecified pathological fracture presence Take 1 tablet by mouth once daily. 90 tablet 3 8 Suspended CPAPIndications:Mode rate obstructive sleep apnea New replacement CPAP machine for home use at pressure: 4-15 cm/H2O , Heated humidifier x 1, Humidifier chamber x 1, 1 Each 11 2 Suspended Additional Information Shower BenchIndications:Kay betes mellitus without complication (HC) For home use. Length of need: 99 1 Each 3 Suspended Additional Information pravastatin (PRAVACHOL) 20 mg tabletIndications:Di abetes mellitus without complication (HC),Essential hypertension TAKE 1 TABLET (20 MG) BY MOUTH ONE TIME DAILY WITH EVENING MEAL. 90 Tablet 2 4 024 Discontinued (Reorder (E-cancel not sent)) metoprolol succinate (TOPROL XL) 25 mg Sustained-Release tabletIndications:PS VT (paroxysmal supraventricular tachycardia) (HC) Take 1 Tablet (25 mg) by mouth once daily. 90 Tablet 3 4 Suspended Additional Information lancets (Prodigy Lancets) 28 gauge miscIndications:Diab etes mellitus without complication (HC) As directed. Dispense item covered by pt ins. E11.65 NIDDM type II, uncontrolled - Test 2 times/day. Reason: High A1C 200 Each 3 4 Suspended Additional Information blood sugar diagnostic (Blood Glucose Test) stripIndications:Unc ontrolled type 2 diabetes mellitus with hyperglycemia (HC) Test 2 times per day due to high A1C 200 Each 3 4 Suspended Additional Information blood-glucose meterIndications:Unc ontrolled type 2 diabetes mellitus with hyperglycemia (HC) As directed. Dispense meter, test strips, lancets covered by pt ins. E11.9 NIDDM uncontrolled type II - Test 1 times/day. Reason: High A1C. Prodigy glucose meter. 1 Each 4 Suspended Additional Information levothyroxine (SYNTHROID) 112 mcg tabletIndications:Po stoperative hypothyroidism Take 1 Tablet (112 mcg) by mouth before breakfast. Dose increase 03/09/24 90 Tablet 4 Suspended Additional Information glyBURIDE (MICRONASE; DIABETA) 5 mg tabletIndications:Un controlled type 2 diabetes mellitus with hyperglycemia (HC) TAKE 2 TABLETS TWICE DAILY BEFORE MEALS 360 Tablet 4 Suspended Additional Information zinc gluconate (ZINC ORAL) Take 50 mg by mouth once daily. Suspended nirmatrelvir-ritonav ir 150-100mg (Paxlovid) tabletIndications:CO VID-19 virus infection Take 1 nirmatrelvir 150 mg pink-oval tablet and 1 ritonavir 100 mg white-oval tablet together twice daily for 5 days. Date of Symptom Onset: 04/17/2024; no result in last 6 months 20 Tablet 4 024 valsartan (DIOVAN) 80 mg tabletIndications:Es sential hypertension Take 1 Tablet (80 mg) by mouth once daily. 90 Tablet 4 Suspended Additional Information pravastatin (PRAVACHOL) 20 mg tabletIndications:Di abetes mellitus without complication (HC),Essential hypertension TAKE 1 TABLET (20 MG) BY MOUTH ONE TIME DAILY WITH EVENING MEAL. 90 Tablet 2 4 Suspended Additional Information empagliflozin (JARDIANCE) 10 mg tabletIndications:Un controlled type 2 diabetes mellitus with hyperglycemia (HC) Take 1 Tablet (10 mg) by mouth once daily. 90 Tablet 3 4 Suspended Additional Information antiox.mv no.10/omeg3s/lut/ara (I-CAPS ORAL) Take 1 Tablet by mouth once daily. Suspended Active Problems Problem Noted Date Diagnosed Date NSTEMI (non-ST elevated myocardial infarction) 0 05/20/2024 Moderate dementia without behavioral disturbance 10/05/2023 Uncontrolled type 2 diabetes mellitus with hyper glycemia 10/05/2023 Paroxysmal SVT (supraventricular tachycardia) Depression, recurrent 04/08/2023 Last Assessment & Plan: chart update only. Marcia Yo[place] 04/08/2023 9:57 AM Paroxysmal SVT (supraventricular tachycardia) [...] Nusrat Perez M.D. 07/24/2013 7:52 PM Stopped 2014 Diverticulitis of colon (without mention of hemo [...] Encounters Date Type Department Care Team Description 05/19/2024 3:23 PM CDT - Present Hospital Encounter [facility] [address] [place] [address] [place], [facility] Hospitalists Of [facility]ul[place], MD Marlon Salgado Joseph Matthew, MD 05/19/2024 1:00 PM CDT Ancillary Procedure [facility] [address] [place] [address] Arrived 05/19/2024 Travel 05/18/[address] [facility] Scanner 1 scan: (1-Ord) [facility], ANGIO CAP AORTIC DISSECTION, 05/18/2024 05/18/[address] [facility] Scanner 1 scan: (1-Ord) [facility], CHEST XRAY, 05/18/2024 05/18/2024 Telephone [facility] [address] [place] [address] Marcia Campa DO orders 05/16/2024 Telephone [facility] [address] [place] [address] Marcia Campa DO fyi 05/15/2024 9:00 AM CDT Office Visit [facility] [address] [address] Marcia Campa DO Diabetes; Medication Management (allergy meds to take daily instead of PRN) 05/15/[address] [place] [phone] Lew Soliz MD Pre Procedure (LINQ order ) 05/15/2024 Travel 04/27/[address] [address] Marcia Campa DO Refill Request (PRAVASTATIN SODIUM 20MG TABS) 04/20/[address] [address] Marcia Campa DO Medication Management (nirmatrelvir-ritonav ir 150-100mg (Paxlovid) tablet) 04/19/2024 1:50 PM CDT Phone Office Visit [address] [address] Marcia Campa DO Covid-19 Positive Result (symptoms started Wednesday, chills, Wednesday runny nose, congestion, cough /-positive test 04/17/Wednesday vomiting- felt ok until Wednesday); Telehealth 04/19/[address] [address] Marcia Campa DO Form (COVID-19 treatment order) 04/19/[address] [address] Marcia Campa DO Medication Management 04/19/[address] [address] Marcia Campa DO Appointment 04/19/2024 Travel 04/17/2024 Nurse Triage [address] [address] Marcia Campa DO Questions (Requesting Paxlovid) 04/14/2024 Telephone [facility] [address] [place] [address] Marcia Campa DO Form 04/13/2024 Orders Only [facility] [address] [address] [facility] [place] [phone] Lew Soliz MD 1 scan: (1-Ord) 04/12/2024 04/12/2024 10:00 AM CDT Office Visit [facility] [address] [facility] [place] [phone] Lew Soliz MD Follow Up (PSVT (paroxysmal supraventricular tachycardia)) 04/12/2024 Travel 04/11/2024 Telephone [facility] [address] [place] [address] Marcia Campa DO Appointment (questions on canceled appointment/) 04/10/2024 Refill [facility] [address] [place] [address] Marcia Campa DO Refill Request (METOPROLOL SUCCINATE ER 25MG TABLET, 24HR) 03/24/2024 Refill [facility] [address] [place] [address] Marcia Campa DO Refill Request (Glyburide) 03/24/[address] [address] Marcia Campa DO Refill Request (LEVOTHYROXINE) 03/13/2024 Telephone [facility] [address] [place] [address] Raine Lacy MD Medication Management 03/09/2024 10:30 AM CDT Orders Only [facility] [address] [place] [address] Lab, [facility] 03/09/2024 Travel 03/08/2024 Telephone [facility] [address] [place] [address] Marcia Campa DO Medication Management 02/24/2024 2:15 PM CDT - 02/24/2024 11:59 PM CDT Hospital Encounter [facility] [address], [facility] [address] [place] [address] Paco Pablo MD PSVT (paroxysmal supraventricular tachycardia) (HC); Loss of consciousness (HC) 02/24/2024 Travel 02/21/2024 Refill [facility] [address] [place] [address] Marcia Campa DO Refill Request (Blood Glucose Meter) 02/21/2024 Telephone [facility] [address] [place] [address] Marcia Campa DO Medication Management (blood sugar diagnostic (Blood Glucose Test) strip, lancets (Prodigy Lancets) 28 gauge misc/) 02/21/2024 Telephone [facility] [address] [place] [address] Marcia Campa DO Follow Up ( Returning call ) from Last 3 Months Immunizations Name Administration Dates Next Due AMB INFLUENZA IIV3 (AGE 65+ YRS) PF (Flu Clinic Only) 07/21/2018 AMB Influenza, IIV3 (Age >=3 years)(Flu Clinic Only) 07/18/2010 Amb Influenza, Inact (High-d ose) (Flu Clinic Only) 07/10/2016 COVID-19 vaccine (Moderna 100mcg/0.5mL) PFTOM 11/10/2020,10/13/2020 Influenza Virus, Unspecified 06/22/2006,07/10/20 04 Influenza, [...] Sign Reading Time Taken Comments Blood Pressure 149/67 05/20/2024 9:12 PM CDT Pulse 76 05/20/2024 9:12 PM CDT Temperature 36.7 ??C (98 ??F) 05/20/2024 9:12 PM CDT Respiratory Rate 18 05/20/2024 9:12 PM CDT Oxygen Saturation 92% 05/20/2024 9:12 PM CDT Inhaled Oxygen Concentration - - Weight 78.2 kg (172 lb 4.8 oz) 05/19/2024 5:05 P M CDT Height 154.9 cm (5' 1) 05/19/2024 5:05 PM CDT Body Mass Index 32.56 05/19/2024 5:05 PM CDT Plan of Treatment Upcoming Encounters Date Type Department Care Team (Late st Contact Info) Description 06/02/2024 1:00 PM CDT Appointment [facility] [address] [place] [address] Merissa Ortiz PA [address] [place] [address] 08/16/2024 3: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 The information in this section might not be complete until the patient is discharged. Procedure Name Priority Date/Time Associated Diagnosis Comments GLUCOSE METER Timed 05/20/2024 9:04 PM CDT SCAN-CARDIAC STRIP 05/20/2024 6: 59 PM CDT GLUCOSE METER Timed 05/20/2024 3:55 PM CDT APTT Timed 05/20/2024 3:02 PM CDT GLUCOSE METER Timed 05/20/2024 10:35 AM CDT SCAN-CARDIAC STRIP 05/20/2024 8: 22 AM CDT GLUCOSE METER Timed 05/20/2024 7:30 AM CDT POTASSIUM Today 05/20/2024 7:16 AM CDT MAGNESIUM Today 05/20/2024 7:16 AM CDT APTT Timed 05/20/2024 7:16 AM CDT HEMATOCRIT Early AM 05/20/2024 7:16 AM CDT HEMOGLOBIN Early AM 05/20/2024 7:16 AM CDT PLATELET COUNT Early AM 05/20/2024 7:16 AM CDT CREATININE Early AM 05/20/2024 7:16 AM CDT SCAN-CARDIAC STRIP 05/20/2024 2: 12 AM CDT APTT Timed 05/20/2024 12:26 AM CDT GLUCOSE METER Timed 05/19/2024 9:06 PM CDT SCAN-CARDIAC STRIP 05/19/2024 8: 45 PM CDT APTT Timed 05/19/2024 5:33 PM CDT TROPONIN T (HS) ONE TIME Today 05/19/2024 5:33 PM CDT GLUCOSE METER Timed 05/19/2024 4:12 PM CDT SCAN-CARDIAC STRIP 05/19/2024 3: 47 PM CDT ECHO TTE COMPLETE W CONTRAST Routine 05/19/2024 12:05 PM CDT NSTEMI (non-ST elevated myocardial infarction) (HC) SCAN-CT INTERPRETATION 05/18/2024 12:00 AM CDT SCAN-RADIOLOGY REPORT 05/18/2024 12:00 AM CDT UA W/ SEDIMENT EXAM REFLEXED PER CRITERIA [...] Relevant to Health Maintenance Results * (ABNORMAL) GLUCOSE METER (05/20/2024 9:04 PM CDT) Only the most recent of6 resultswithin the time period is included. GLUCOSE METER 280(H) 65 - 100 mg/dL 05/20/2024 9:09 PM CDT [facility] Blood BLOOD SPECIMEN / Unknown 05/20/2024 9:04 PM CDT 05/20/2024 9:09 PM CDT Fermin Mason MD CHEMISTRY Performing Organization Address [facility] Co de Phone Number [facility] [address] [place] [address], * SCAN-CARDIAC STRIP (05/20/2024 6:59 PM CDT) Scanner OTHER * (ABNORMAL) APTT (05/20/2024 3:02 PM CDT) Only the most recent of4 resultswithin the time period is included. Pathologist [facility] APTT 73(H) 28 - 36 sec 05/20/2024 4:01 PM CDT [facility] Blood BLOOD SPECIMEN / Unknown Venipuncture / Unknown 05/20/2024 3:02 PM CDT 05/20/2024 3:48 PM CDT Narrative [facility] - 05/20/2024 4:01 PM CDT Therapeutic Range: 57-87 seconds Zoraida Ding RN HEMATOLOGY Performing Organization Address City/[facility]/ZIP Co de Phone Number [facility] [address] [place] [address], * SCAN-CARDIAC STRIP (05/20/2024 8:22 AM CDT) Scanner OTHER * PLATELET COUNT (05/20/2024 7:16 AM CDT) PLATELET COUNT 315 140 - 440 thou/cu mm 05/20/2024 8:36 AM CDT [facility] MPV 10.0 6.5 - 11.0 fL 05/20/2024 8:36 AM CDT [facility] Blood BLOOD SPECIMEN / Unknown Non-Lab Venipuncture / Unknown 05/20/2024 7:16 AM CDT 05/20/2024 8:27 AM CDT [facility] - 05/20/2024 8:36 AM CDT Every morning while on IV heparin. Every morning while on IV heparin. Necessary every morning while on IV heparin. Christiano Light MD HEMATOLOGY Performing Organization Address City/[facility]/ZIP Co de Phone Number [facility] [address] [place] [address], * HEMOGLOBIN (05/20/2024 7:16 AM CDT) Pathologist [facility] HEMOGLOBIN 12.2 12.0 - 16.0 g/dL 05/20/2024 8:36 AM CDT [facility] MCV 91 80 - 100 fL 05/20/2024 8:36 AM CDT [facility] Blood BLOOD SPECIMEN / Unknown Non-Lab Venipuncture / Unknown 05/20/2024 7:16 AM CDT 05/20/2024 8:27 AM CDT [facility] - 05/20/2024 8:36 AM CDT Every morning while on IV heparin. Every morning while on IV heparin. Necessary every morning while on IV heparin. Christiano Light MD HEMATOLOGY Performing Organization Address City/[facility]/ZIP Co de Phone Number [facility] [address] [place] [address], * HEMATOCRIT (05/20/2024 7:16 AM CDT) HEMATOCRIT 36.2 33.0 - 51.0 % 05/20/2024 8:36 AM CDT [facility] Blood BLOOD SPECIMEN / Unknown Non-Lab Venipuncture / Unknown 05/20/2024 7:16 AM CDT 05/20/2024 8:27 AM CDT Narrative [facility] - 05/20/2024 8:36 AM CDT Every morning while on IV heparin. Every morning while on IV heparin. Necessary every morning while on IV heparin. Christiano Light MD HEMATOLOGY Performing Organization Address City/[facility]/ZIP Co de Phone Number [facility] [address] [place] [address], * POTASSIUM (05/20/2024 7:16 AM CDT) POTASSIUM 4.1 3.5 - 5.1 mmol/L 05/20/2024 8:59 AM CDT [facility] Blood BLOOD SPECIMEN / Unknown Non-Lab Venipuncture / Unknown 05/20/2024 7:16 AM CDT 05/20/2024 8:27 AM CDT Fermin Mason MD CHEMISTRY Performing Organization Address [facility] Co de Phone Number [facility] [address] [place] [address], * (ABNORMAL) CREATININE (05/20/2024 7:16 AM CDT) eGFR 75(L) >90 mL/min/1.7 3m2 05/20/2024 8:59 AM CDT [facility] Comment:As of 2021, eG FR is calculated by the CKD-EPI creatinine equation without race adjustment. ??eGFR can be influenced by muscle mass, exercise, and diet. ??The reported eGFR is an estimation only and is only applicable if the renal function is stable. CREATININE 0.76 0.50 - 0.90 mg/dL 05/20/2024 8:59 AM CDT [facility] Blood BLOOD SPECIMEN / Unknown Non-Lab Venipuncture / Unknown 05/20/2024 7:16 AM CDT 05/20/2024 8:27 AM CDT Christiano Light MD CHEMISTRY Performing Organization Address City/[facility]/ZIP Co de Phone Number [facility] [address] [place] [address], * MAGNESIUM (05/20/2024 7:16 AM CDT) Pathologist [facility] MAGNESIUM 1.8 1.6 - 2.4 mg/dL 05/20/2024 8:59 AM CDT [facility] Blood BLOOD SPECIMEN / Unknown Non-Lab Venipuncture / Unknown 05/20/2024 7:16 AM CDT 05/20/2024 8:27 AM CDT Fermin Mason MD CHEMISTRY Performing Organization Address [facility] Co de Phone Number [facility] [address] [place] [address], [place] * SCAN-CARDIAC STRIP (05/20/2024 2:12 AM CDT) Scanner OTHER * SCAN-CARDIAC STRIP (05/19/2024 8:45 PM CDT) Scanner OTHER * (ABNORMAL) TROPONIN T (HS) ONE TIME (05/19/2024 5:33 PM CDT) Pathologist [facility] TROPONIN T HS 632(H) 6-10 ng/L ng/L 05/19/2024 6:20 PM CDT [facility] Blood BLOOD SPECIMEN / Unknown Butterfly / Unknown 05/19/2024 5:33 PM CDT 05/19/2024 5:52 PM CDT Narrative [facility] - 05/19/2024 6:20 PM CDT hs-cTnT (Elecsys Troponin T Gen 5) concentration (s) above the sex-specific 99th percentile (16 ng/L or greater for males or 11 ng/L or greater for females) are indicative of myocardial injury. If initial hs-cTnT <=100 ng/L at presentation, a 0h/2h ABSOLUTE (ng/L) delta change (rising or falling) of >=10 ng/L suggests a significant change, whereas a 0h/2h delta change <=3 ng/L suggests no significant change. If initial hs-cTnT >100 ng/L at presentation, a 0h/2h/ RELATIVE (percent, %) delta change of 20% is suggested to distinguish patients with acute vs. chronic myocardial injury. There are multiple etiologies that can cause hs-cTnT increases above the 99th percentile (myocardial injury) other than acute myocardial infarction. Clinical context and careful clinical evaluation are critical for diagnosis and risk-stratification. The diagnosis of acute myocardial infarction requires a rising and/or falling pattern in hs-cTnT concentrations with at least one value above the sex-specific 99th percentile PLUS at least one of the following clinical criteria: ischemic symptoms, new or presumed new significant ST-T wave changes or new LBBB, development of pathological Q waves, imaging evidence of new loss of viable myocardium or new regional wall motion abnormality, or identification of intracoronary atherothrombosis or an acute angiographic culprit on coronary angiography. In appropriate low-risk patients with a non-ischemic electrocardiogram without active chest pain with a symptom onset >3-hours without recurrence, a single initial hs-cTnT<6 ng/L identifies patient with a very low risk in emergency department patient population. Christiano Light MD CHEMISTRY [facility] [address] [place] [address], * SCAN-CARDIAC STRIP (05/19/2024 3:47 PM CDT) Scanner OTHER * ECHO TTE COMPLETE W CONTRAST (05/19/2024 12:05 PM CDT) Only the most recent of2 resultswithin the time period is included. AORTIC VALVE MEAN PG 4 mmHg EJECTION FRACTION 76 % LVEDD 3.6 cm EJECTION FRACTION 65 - 70% Anatomical Region Laterality Modality Ultrasound 05/19/2024 11:3 0 AM CDT Narrative 05/19/2024 12:46 PM CDT ECHOCARDIOGRAM SHOSHANA D SURAJ ? Accession#: ?? [id number] : ?1935 89 years Study Date: ?? 05/19/2024 11:30:28 AM Gender: F ?BP: ? 146/84 mmHg Height: 157.00 cm ?BSA: ?1.82 m? ? ? Weight: 81.00 kg ? Tech: ? MSR ? Referring MD: LIBERTY CASTANON Site: ? [facility] Reading Location: Mobile [facility] Patient Location: Inpatient. Procedure: 2D w/ Contrast. Indication for study: NSTEMI (non-ST elevated myocardial infarction) Cardiac Rhythm: Regular and with premature ventricular contractions.Study quality: Good. Final Impressions: 1. Normal LV size, normal wall thickness, EF of 65 - 70%. 2. Distal septum and apex are abnormal. 3. Noraml RV size and systolic function. 4. The aortic valve is sclerotic, no stenosis and no regurgitation. 5. Echo contrast was administered to enhance visualization of all left ventricular segments. Chamber Sizes and Function Normal left ventricular size, normal wall thickness, normal global systolic function with an estimated EF of 65 - 70%. Left atrial size is normal. Left atrial pressure is normal. Right ventricular cavity size is normal, global systolic RV function is normal. RV wall thickness is normal. The right atrium is normal. The pulmonary artery is of normal size and origin. The sinus of Valsalva is normal sized. The ascending aorta is normal sized. Valves, RV Pressures and Diastolic Function The aortic valve is sclerotic, no stenosis and no regurgitation. The mitral valve is normal in structure, no mitral regurgitation. Mitral annular calcification is present. Normal diastolic function for age. The tricuspid valve is normal in structure. Tricuspid regurgitation is regurgitation is not evident. The pulmonic valve is normal. No pulmonary regurgitation. Masses, Effusion, Shunts There is no pericardial effusion. The inferior vena cava is normal sized, respiratory size variation greater than 50%. No left to right shunting was detected by limited color flow Doppler interrogation of the interatrial septum. MEASUREMENTS AND CALCULATIONS 2-D Measurements and LV Function: LVID (d) 3.6 cm LV FS% (2D) ?? 35 % LVID (s) 2.4 cm LVOT diameter 2.1 cm IVS (d) ??1.1 cm HR ?62 bpm LVPW (d) 1.1 cm LA Vol index ??17 ml/m2 Ao Sinus 3.6 cm RV Max 4C (d) 4.0 cm Asc Ao ?? 3.9 cm Diastology: Mitral ?Tissue Doppler E Peak 0.6 m/s ??e', Septum ? 0.04 m/s A Peak 1.2 m/s ??e', Lateral ?0.03 m/s E/A ?0.5 ?E/e' Average ?? 17.89 DT ? 267 msec Aortic Valve: Vmax ? 1.2 m/s ??CALLY (V) ?? 3.11 cm? ? ? VTI ?0.28 m ?? CALLY (I) ?? 3.01 cm? ? ? LVOT V max 1.1 m/s ??Max PG ?6 mmHg LVOT VTI ?? 0.24 m ?? Mean PG ?? 4 mmHg SV ? 83 ml ?Dim Index 0.87 SV index ?? 46 ml/m? ? ? CO ?5.1 l/min ?CI ?2.8 l/min/m? ? ? Mitral Valve: MVA ? 2.8 cm? ? ? MV P 1/2 ??77 msec MV Mean G 2 mmHg MV VTI ?0.41 m Tricuspid Valve and estimated PA pressures: TAPSE 2.1 cm Contrast documentation: 2ml ml diluted Definity, lot #[id number], [facility]# [id number] was administered peripherally to enhance visualization of all left ventricular segments. . This study was interpreted by an [facility] accredited facility. CC: HIM (med records) [facility], Med/Surg - IP [facility]. ??Final (Updated) ?? Procedure Note Deepak Fulton MD - 05/19/2024 ECHOCARDIOGRAM SHOSHANA RUELAS : 1935 89 years Study Date: 05/19/2024 11:30:28 AM Gender: F BP: 146/84 mmHg Height: 157.00 cm BSA: 1.82 m? ? ? Weight: 81.00 kg Tech: MSR Referring MD: LIBERTY CASTANON Site: [facility] Reading Location: Mobile [facility] Patient Location: Inpatient. Procedure: 2D w/ Contrast. Indication for study: NSTEMI (non-ST elevated myocardial infarction) Cardiac Rhythm: Regular and with premature ventricular contractions.Studyquality: Good. Final Impressions: 1. Normal LV size, normal wall thickness, EF of 65 - 70%. 2. Distal septum and apex are abnormal. 3. Noraml RV size and systolic function. 4. The aortic valve is sclerotic, no stenosis and no regurgitation. 5. Echo contrast was administered to enhance visualization of all leftventricular segments. Chamber Sizes and Function Normal left ventricular size, normal wall thickness, normal globalsystolic function with an estimated EF of 65 - 70%. Left atrial size isnormal. Left atrial pressure is normal. Right ventricular cavity size isnormal, global systolic RV function is normal. RV wall thickness isnormal. The right atrium is normal. The pulmonary artery is of normal sizeand origin. The sinus of Valsalva is normal sized. The ascending aorta isnormal sized. Valves, RV Pressures and Diastolic Function The aortic valve is sclerotic, no stenosis and no regurgitation. Themitral valve is normal in structure, no mitral regurgitation. Mitralannular calcification is present. Normal diastolic function for age. Thetricuspid valve is normal in structure. Tricuspid regurgitation isregurgitation is not evident. The pulmonic valve is normal. No pulmonaryregurgitation. Masses, Effusion, Shunts There is no pericardial effusion. The inferior vena cava is normal sized,respiratory size variation greater than 50%. No left to right shunting wasdetected by limited color flow Doppler interrogation of the interatrialseptum. MEASUREMENTS AND CALCULATIONS 2-D Measurements and LV Function: LVID (d) 3.6 cm LV FS% (2D) 35 % LVID (s) 2.4 cm LVOT diameter 2.1 cm IVS (d) 1.1 cm HR 62 bpm LVPW (d) 1.1 cm LA Vol index 17 ml/m2 Ao Sinus 3.6 cm RV Max 4C (d) 4.0 cm Asc Ao 3.9 cm Diastology: Mitral Tissue Doppler E Peak 0.6 m/s e', Septum 0.04 m/s A Peak 1.2 m/s e', Lateral 0.03 m/s E/A 0.5 E/e' Average 17.89 DT 267 msec Aortic Valve: Vmax 1.2 m/s CALLY (V) 3.11 cm? ? ? VTI 0.28 m CALLY (I) 3.01 cm? ? ? LVOT V max 1.1 m/s Max PG 6 mmHg LVOT VTI 0.24 m Mean PG 4 mmHg SV 83 ml Dim Index 0.87 SV index 46 ml/m? ? ? CO 5.1 l/min CI 2.8 l/min/m? ? ? Mitral Valve: MVA 2.8 cm? ? ? MV P 1/2 77 msec MV Mean G 2 mmHg MV VTI 0.41 m Tricuspid Valve and estimated PA pressures: TAPSE 2.1 cm Contrast documentation: 2ml ml diluted Definity, lot #[id number], [facility]#[id number] was administered peripherally to enhance visualization of allleft ventricular segments. . This study was interpreted by an [facility] accredited facility. CC: HIM (med records) [facility], Med/Surg - IP [facility]. Final (Updated) Liberty Castanon MD ECHO ORD * SCAN-RADIOLOGY REPORT (05/18/2024 12:00 AM CDT) Anatomical Region Laterality Modality Other Scanner OTHER * SCAN-CT INTERPRETATION (05/18/2024 12:00 AM CDT) Anatomical Region Laterality Modality Other Scanner OTHER * (ABNORMAL) UA W/ SEDIMENT EXAM REFLEXED PER CRITERIA (05/15/2024 10:02 AM CDT) COLOR Yellow Yellow Color 05/15/2024 10:05 AM CDT [facility] CLARITY Clear Clear Clarity 05/15/2024 10:05 AM CDT [facility] SPECIFIC GRAVITY,URINE 1.015 1.010, 1.015, 1.020, 1.025 05/15/2024 10:05 AM CDT [facility] PH,URINE 7.0 6.0, 7.0, 8.0, 5.5, 6.5, 7.5, 8.5 05/15/2024 10:05 AM CDT [facility] UROBILINOGEN, QUALITATIVE Normal Normal EU/dl 05/15/2024 10:05 AM CDT [facility] PROTEIN, URINE Negative Negative mg/dL 05/15/2024 10:05 AM CDT [facility] GLUCOSE, URINE 250(A) Negative mg/dL 05/15/2024 10:05 AM CDT [facility] KETONES,URINE Negative Negative mg/dL 05/15/2024 10:05 AM CDT [facility] BILIRUBIN,URI NE Negative Negative 05/15/2024 10:05 AM CDT [facility] OCCULT BLOOD,URINE Negative Negative 05/15/2024 10:05 AM CDT [facility] NITRITE Negative Negative 05/15/2024 10:05 AM CDT [facility] LEUKOCYTE ESTERASE Negative Negative 05/15/2024 10:05 AM CDT [facility] Urine URINE SPECIMEN / Unknown Non-Blood / Unknown 05/15/2024 10:02 AM CDT 05/15/2024 10:02 AM CDT Marcia Campa DO URINE [facility] [address] [place] [address], * (ABNORMAL) TSH (05/15/2024 8:49 AM CDT) Only the most recent of2 resultswithin the time period is included. TSH 24.80(H) 0.27 - 4.20 uIU/mL 05/15/2024 6:56 PM CDT [facility] Blood BLOOD SPECIMEN / Unknown Venipuncture / Unknown 05/15/2024 8:49 AM CDT 05/15/2024 8:49 AM CDT Narrative [facility] - 05/15/2024 6:56 PM CDT In Adults, TSH values between 5.00 and 10.00 uIU/ml do not necessarily indicate the presence of Hypothyroidism. Correlation with clinical findings such as presence of goiter and/or Thyroperoxidase (TPO) Antibody may be helpful. For more information please refer to MARY CARMEN 2004; 291: [phone]. Marcia Campa DO CHEMISTRY [facility] [address] [place] [address], * (ABNORMAL) HEMOGLOBIN A1C MONITORING (POCT) (05/15/2024 8:49 AM CDT) HEMOGLOBIN A1C MONITORING (POCT) 11.0(H) <=6.4 % 05/15/2024 8:59 AM CDT [facility] Blood BLOOD SPECIMEN / Unknown Venipuncture / Unknown 05/15/2024 8:49 AM CDT 05/15/2024 8:49 AM CDT Narrative [facility] - 05/15/2024 8:59 AM CDT ? (<=6.9%) [...] Anemias, Splenectomy ? Marcia Campa DO CHEMISTRY [facility] [address] [place] [address], * EKG 12 LEAD (04/12/2024 12:00 AM CDT) Lew Soliz MD EKG ORD * EXTENDED HOLTER (03/15/2024) Paco Pablo MD CARDIAC SERVICES ORD * XR DXA BONE DENSITY 2 [...] recommended in 3-5 years. Haydee Eugene PA-C [facility] 01/12/2023 Narrative 01/12/2023 2:08 PM CDT For Patients: Results are automatically released to your [employer] account once available, in compliance with federal regulations. This means that you may see your results before your provider has had a chance to review them. Please allow 2-3 business days for your provider to comment on the results. XR DXA Bone Mineral Density (BMD) EXAM LOCATION: [facility] [address] [facility] [id number] PATIENT NAME: Shoshana Ruelas DATE OF : [...] two scanners are made by the same general office dispatcher. 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
== END 2024-05-19 14:18 | disposition home or self-care (01) ==
LOC: AMB 05-21 02:34
PROVIDERS: PCP Family Medicine; Visit Provider Emergency Medicine
DX: I21.4 Non-ST elevation (NSTEMI) myocardial infarction (principal)
CPT/HCPCS: A0425; A0427

== ENCOUNTER 2024-06-21 07:54 | Outpatient (CLI) | payer MEDICARE, BC, SELFPAY ==
--- OUTSIDE RECORDS SUMMARY | 2024-06-21 07:57 | XMS_ITS | Clinical Summary ---
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 valve leaflets are normal. There is no pulmonic valve mass, thrombus, or vegetation. There is no pulmonic regurgitation. There is no pulmonic stenosis. AORTIC ROOT: The aortic root is normal. CORE EXAM ===== MEASUREMENTS ----- --- ?VOLUMETRIC ANALYSIS ? . . ? LV ?? Reference RV ?? Reference +------+ +------+ +------+ + EDV ?? ml ? 88 ?100 ? ml/m^2 ? 49 ? 56 ? ESV ?? ml ? 35 ? 47 ? ml/m^2 ? 20 ? 26 ? CO ?? L/min ? 3.18 ? 3.18 ? L/min/m^2 1.77 ? 1.77 ? MASS g ? 97 ? g/m^2 ? 54 ? SV ?? ml ? 53 ? 53 ? ml/m^2 ? 30 ? 30 ? EF ?? % ? 60 ? 53 ? '------+ +------+ +------+ ' ?CARDIAC OUTPUT HR: ??60 BPM ?LA DIMENSIONS (LV SYSTOLE) ?VOLUME: ??55 ml ?VOLUME NORMALIZED: ??30.7 ml/m^2 ?RA DIMENSIONS (RV SYSTOLE) ?VOLUME: ??47 ml ?VOLUME NORMALIZED: ??26.2 ml/m^2 ?EXTRACELLULAR VOLUME MEASUREMENT ?PRE-CONTRAST T1 MYOCARDIUM: ??1040 msec ?ECV: ??31 % 17 SEGMENT ----- --- . ----- ------. Segments ? Wall Motion ?? Hyperenhancement Stress Perfusion Interpretation + + + + +----- ----- ------+ Base Anterior ? Normal/Hyper None ? Normal ? Base Anteroseptal ?? Normal/Hyper None ? Normal ? Base Inferoseptal ?? Normal/Hyper None ? Normal ? Base Inferior ? Normal/Hyper None ? Normal ? Base Inferolateral Normal/Hyper 26-50% ? Sub-Endo IN ? Base Anterolateral Normal/Hyper None ? Normal ? Mid Anterior ? Normal/Hyper None ? Normal ? Mid Anteroseptal ?? Normal/Hyper None ? Normal ? Mid Inferoseptal ?? Normal/Hyper None ? Normal ? Mid Inferior ? Normal/Hyper None ? Normal ? Mid Inferolateral ?? Normal/Hyper None ? Normal ? Mid Anterolateral ?? Normal/Hyper None ? Normal ? Apical Anterior ? Normal/Hyper None ? Normal ? Apical Septal ? Normal/Hyper None ? Normal ? Apical Inferior ? Severe Hypo ?? 76-100% ? Transmural IN ?? Apical Lateral ? Normal/Hyper None ? Normal ? [place] ? Severe Hypo ?? 76-100% ? Transmural IN ?? + + + + +----- ----- ------+ RV Segments ? Wall Motion ?? Hyperenhancement ? Interpretation + + + + +----- ----- ------+ RV Basal Anterior ?? Normal/Hyper None ? Normal ? RV Basal Inferior ?? Normal/Hyper None ? Normal ? RV Mid ? Normal/Hyper None ? Normal ? RV Apical ? Normal/Hyper None ? Normal ? ' + + + +----- ----- ------' ?FINDINGS ?LV SCAR SIZE (17 SEGMENT): ??13 % SCAN INFO ===== GENERAL ----- --- ?SCANNER ?AIR COMMODORE: ??SIEMENS ?MODEL: ??Aera ?CONTRAST AGENT ?TYPE: ??Gadavist ?GD CONCENTRATION: ??1.0 M ?SETUP ?REFERRING PHYSICIAN: ??JAMAR WIRGHT ?ATTENDING PHYSICIAN: ??BEST FIELDS ===== Patient Account ?[id number] Report generated by [employer], a product of [employer] Procedure Note Ayo Trevino MD - 05/26/2024 [facility] at [facility] CMR Report Name: SURAJSHOSHANA MANZO Re : Scan Date: Accession Number: [id number] Status: Final Electronically signed by Ayo Trevino 13:15:32 VITALS ===== HEIGHT: 61 in (155 cm) WEIGHT: 177 lbs (80 kgs) BSA: 1.79 m^2 FINAL IMPRESSION ===== 1) Findings are consistent with acute myocardial infarction involving theapical cap and apical inferior segments with myocardial necrosis, edema and regional wall motionabnormality. No LV thrombus. - Small LV size with mild concentric LV hypertrophy (max wall thickness=12mm) with overall preserved systolic function, but apical hypokinesis. LVEF=60%. - On late gadolinium enhancement imaging, in addition to the apicalinfarct, there is also a 2nd remote subendocardial infarction at the basal inferolateral segment, alsopossibly embolic. - Mildly elevated myocardial ECV=31%. 2) Normal RV size and systolic function, RVEF=53% 3) No significant valvular disease. 4) Normal aortic root and thoracic aorta caliber. SUMMARY ===== LEFT VENTRICLE: Quantitative LVEF 60 %. There is LV concentric remodeling.There is mild LV hypertrophy. LV cavity size is normal. LV systolic function is normal. There is no LV mass/thrombus. VIABILITY: LV scar size is 13 %. RIGHT VENTRICLE: Quantitative RVEF 53 %. RV wall thickness is normal. RVcavity size is normal. RV systolic function is normal. There is no RV mass/thrombus. LV/RV SEPTUM: The LV/RV septum is normal. LA/RA SEPTUM: The LA/RA septum is normal. LEFT ATRIUM: LA cavity size is normal. There is no LA mass/thrombus. RIGHT ATRIUM: The right atrium is normal. PERICARDIUM: Pericardium is normal. There is no pericardial effusion.There are no signs of increased intrapericardial pressures. PLEURAL EFFUSION: There is no pleural effusion. AORTIC VALVE: The aortic valve annulus is normal in size. Aortic valveleaflets are normal. There is no aortic valve mass, thrombus, or vegetation. There is no aortic regurgitation. There isno aortic stenosis. MITRAL VALVE: The mitral valve annulus is normal in size. Mitral valveleaflets are normal. There is no mitral valve mass, thrombus, or vegetation. There is no mitral regurgitation. There isno mitral stenosis. TRICUSPID VALVE: The tricuspid valve annulus is normal in size. Tricuspidvalve leaflets are normal. There is no tricuspid valve mass, thrombus, or vegetation. There is no tricuspid regurgitation.There is no tricuspid stenosis. PULMONIC VALVE: The pulmonic valve annulus is normal in size. Pulmonicvalve leaflets are normal. There is no pulmonic valve mass, thrombus, or vegetation. There is no pulmonic regurgitation.There is no pulmonic stenosis. AORTIC ROOT: The aortic root is normal. CORE EXAM ===== MEASUREMENTS ----- --- VOLUMETRIC ANALYSIS . . LV Reference RV Reference +------+ +------+ +------+ + EDV ml 88 100 ml/m^2 49 56 ESV ml 35 47 ml/m^2 20 26 CO L/min 3.18 3.18 L/min/m^2 1.77 1.77 MASS g 97 g/m^2 54 SV ml 53 53 ml/m^2 30 30 EF % 60 53 '------+ +------+ +------+ ' CARDIAC OUTPUT HR: 60 BPM LA DIMENSIONS (LV SYSTOLE) VOLUME: 55 ml VOLUME NORMALIZED: 30.7 ml/m^2 RA DIMENSIONS (RV SYSTOLE) VOLUME: 47 ml VOLUME NORMALIZED: 26.2 ml/m^2 EXTRACELLULAR VOLUME MEASUREMENT PRE-CONTRAST T1 MYOCARDIUM: 1040 msec ECV: 31 % 17 SEGMENT ----- --- . ----- ------. Segments Wall Motion Hyperenhancement Stress Perfusion Interpretation + + + + +----- ----- ------+ Base Anterior Normal/Hyper None Normal Base Anteroseptal Normal/Hyper None Normal Base Inferoseptal Normal/Hyper None Normal Base Inferior Normal/Hyper None Normal Base Inferolateral Normal/Hyper 26-50% Sub-Endo IN Base Anterolateral Normal/Hyper None Normal Mid Anterior Normal/Hyper None Normal Mid Anteroseptal Normal/Hyper None Normal Mid Inferoseptal Normal/Hyper None Normal Mid Inferior Normal/Hyper None Normal Mid Inferolateral Normal/Hyper None Normal Mid Anterolateral Normal/Hyper None Normal Apical Anterior Normal/Hyper None Normal Apical Septal Normal/Hyper None Normal Apical Inferior Severe Hypo 76-100% Transmural IN Apical Lateral Normal/Hyper None Normal [place] Severe Hypo 76-100% Transmural IN + + + + +----- ----- ------+ RV Segments Wall Motion Hyperenhancement Interpretation + + + + +----- ----- ------+ RV Basal Anterior Normal/Hyper None Normal RV Basal Inferior Normal/Hyper None Normal RV Mid Normal/Hyper None Normal RV Apical Normal/Hyper None Normal ' + + + +----- ----- ------' FINDINGS LV SCAR SIZE (17 SEGMENT): 13 % SCAN INFO ===== GENERAL ----- --- SCANNER AIR COMMODORE: SIEMENS MODEL: Aera CONTRAST AGENT TYPE: Gadavist GD CONCENTRATION: 1.0 M SETUP REFERRING PHYSICIAN: JAMAR WRIGHT ATTENDING PHYSICIAN: BEST TORRES BILLING ===== Patient Account [id number] Report generated by [employer], a product of [employer] Chase Santos MD MR * SCAN-CARDIAC STRIP (05/26/2024 7:30 AM CDT) Scanner OTHER * (ABNORMAL) CBC (05/26/2024 6:15 AM CDT) [facility] WHITE BLOOD COUNT 9.0 4.5 - 11.0 thou/cu mm 05/26/2024 6:53 AM CDT [facility] RED BLOOD COUNT 3.91(L) 4.00 - 5.20 mil/cu mm 05/26/2024 6:53 AM CDT [facility] HEMOGLOBIN 12.1 12.0 - 16.0 g/dL 05/26/2024 6:53 AM CDT [facility] HEMATOCRIT 35.2 33.0 - 51.0 % 05/26/2024 6:53 AM CDT [facility] MCV 90 80 - 100 fL 05/26/2024 6:53 AM CDT [facility] MCH 30.9 26.0 - 34.0 pg 05/26/2024 6:53 AM CDT [facility] MCHC 34.4 32.0 - 36.0 g/dL 05/26/2024 6:53 AM CDT [facility] RDW 12.8 11.5 - 15.5 % 05/26/2024 6:53 AM CDT [facility] PLATELET COUNT 298 140 - 440 thou/cu mm 05/26/2024 6:53 AM CDT [facility] MPV 9.1 6.5 - 11.0 fL 05/26/2024 6:53 AM CDT [facility] NRBC 0.0 % 05/26/2024 6:53 AM CDT [facility] ABS NRBC 0.0 thou /cu mm 05/26/2024 6:53 AM CDT [facility] Blood BLOOD SPECIMEN / Unknown Non-Lab Venipuncture / Unknown 05/26/2024 6:15 AM CDT 05/26/2024 6:41 AM CDT Delmer Swanson MD HEMATOLOGY [facility] [address] [place], [place] [address] * (ABNORMAL) SODIUM (05/26/2024 6:15 AM CDT) SODIUM 132(L) 136 - 145 mmol/L 05/26/2024 7:18 AM CDT [facility] Blood BLOOD SPECIMEN / Unknown Non-Lab Venipuncture / Unknown 05/26/2024 6:15 AM CDT 05/26/2024 6:40 AM CDT Delmer Swanson MD CHEMISTRY Performing Organization Address City/[facility] Co de Phone Number [facility] [address] [place] [address], [place] * POTASSIUM (05/26/2024 6:15 AM CDT) Only the most recent of4 resultswithin the time period is included. POTASSIUM 3.9 3.5 - 5.1 mmol/L 05/26/2024 7:18 AM CDT [facility] Blood BLOOD SPECIMEN / Unknown Non-Lab Venipuncture / Unknown 05/26/2024 6:15 AM CDT 05/26/2024 6:40 AM CDT Delmer Swanson MD CHEMISTRY Performing Organization Address [facility] Phone Number [facility] [address] [place] [address], [place] * (ABNORMAL) CREATININE (05/26/2024 6:15 AM CDT) Only the most recent of2 resultswithin the time period is included. eGFR 87(L) >90 mL/min/1.7 3m2 05/26/2024 7:18 AM CDT [facility] Comment:As of 2021, eG FR is calculated by the CKD-EPI creatinine equation without race adjustment. ??eGFR can be influenced by muscle mass, exercise, and diet. ??The reported eGFR is an estimation only and is only applicable if the renal function is stable. CREATININE 0.58 0.50 - 0.90 mg/dL 05/26/2024 7:18 AM CDT [facility] Blood BLOOD SPECIMEN / Unknown Non-Lab Venipuncture / Unknown 05/26/2024 6:15 AM CDT 05/26/2024 6:40 AM CDT Delmer Swanson MD CHEMISTRY [facility] [address] [place] [address], * SCAN-CARDIAC STRIP (05/26/2024 12:19 AM CDT) Scanner OTHER * SCAN-CARDIAC STRIP (05/25/2024 11:15 AM CDT) Scanner OTHER * EP Procedure to be Performed (05/25/2024 9:41 AM CDT) Narrative Jemal Bell MD - 05/25/2024 9:41 AM CDT Jemal Bell MD ? 05/25/2024 ??9:48 AM BRIEF PROCEDURE NOTE: Pre-procedural diagnosis: Paroxysmal supraventricular tachycardia. 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 Post-procedural diagnosis: Same. ??Inducible typical AVNRT. Outcome: Successful. Access: RFV: 8FR x1. ??LFV: 7FR x2. Complications: None. EBL: minimal Plan: -Groin sheath pull in recovery area. -Bedrest for 3 hours. -EKG today. -Ongoing work-up per cardiology (cardiac MRI planned for today). -I feel ILR implant can be cancelled pending her clinical response to ablation. Full report to follow in [facility]. Jemal Bell MD, PhD Electrophysiology Staff Pager: [phone] 05/25/2024 9:41 AM Peewee Pennington NP [employer] DEVELOPER ORD * EP STUDY /ABLATION (05/25/2024 7:14 AM CDT) Anatomical Region Laterality Modality Other 05/25/2024 7:14 AM CDT Narrative Transcriptions Jemal Bell MD - 05/25/2024 10:27 AM CDT [facility] Electrophysiology Procedure Report Name: SHOSHANA RUELAS Event Date: 05/25/2024 [facility] ID #: [id number] Date: 1935 Gender: Female Age: 89 [employer] [facility] #: [id number] Procedure Performed By: JEMAL BELL [facility] Referring Physician: Summary / Conclusions VASCULAR ACCESS * Using ultrasound guidance and a percutaneous technique, the rightfemoral vein was accessed. Ultrasound was used to confirm vessel patency,localizing needle into the lumen of the vessel. For safety purposes, apicture was saved for the medical record. * Using ultrasound guidance and a percutaneous technique, the left femoralvein was accessed. Ultrasound was used to confirm vessel patency,localizing needle into the lumen of the vessel. For safety purposes, apicture was saved for the medical record. Pre-Operative Diagnosis ? Paroxysmal supraventricular tachycardia. Post-Operative Diagnosis ? Same as Pre-operative diagnosis ? Inducible typical AVNRT. Indications ? Same as Pre-operative diagnosis Consent & Casa Protocol Casa protocol was followed. TIME OUT conducted just prior tostarting procedure confirmed patient identity, site/side, procedure,patient position, and availability of correct equipment and implants (ifapplicable). The risks, benefits, and alternatives of the procedure were discussed withthe patient and written informed consent was obtained. Procedure Description CONCLUSIONS: 1. Inducible typical AVNRT. 2. Successful slow pathway ablation. 3. Dual AV node physiology remained post-ablation (AH jump with singleecho beats) but SVT was no longer inducible. PROCEDURES PERFORMED: Ultrasound guided vascular access. Right atrial pacing. Right atrial electrogram recording. His bundle electrogram recording. Coronary sinus pacing. Coronary sinus electrogram recording. Right ventricular pacing. Right ventricular electrogram recording. Arrhythmia induction. Right atrial mapping. Radiofrequency catheter ablation. Drug study: Isoproterenol administration. Three dimensional mapping: [employer] mapping system was used. PROCEDURE DESCRIPTION: The patient was assessed by me and was found to be a suitable candidatefor this procedure. Anesthesiology provided sedation throughout theprocedure, please their notes/logs for further details. After sterilepreparation and local anesthesia with 1% Lidocaine and 0.25% Sensorcaine,a micropuncture needle was used to puncture the femoral vessel noted belowunder direct ultrasound guidance. A one time dose of heparin wasadministered. Using standard Seldinger technique, a guide wire wasadvanced into the vessel. Subsequently, a sheath was introduced over theguide wire. Electrode catheters were then introduced under fluoroscopicguidance into the heart for the purpose of pacing and electrogramrecording. This process was repeated for each separate electrode catheterwith location and positioning as noted in the Catheter Placement section.Coronary sinus catheterization was performed using a right femoral venousapproach. The electrode catheter was advanced into the superior rightatrium and then curved inferiorly with counterclockwise torque underfluoroscopic guidance to the posterior inferior right atrium and then intothe coronary sinus for the purpose of left atrial pacing and/orelectrogram recording. Electrophysiology studies were performed off andon isoproterenol, please see separate portions of this procedure note fordetails. The [employer] three dimensional mapping system was usedduring the procedure for mapping the arrhythmia activation sequence andanatomy. Radiofrequency catheter ablation was performed. Right atrialand right ventricular mapping was performed to identify appropriatelocations for ablation. Energy was delivered in a temperature controlmode to the large tip of a steerable ablation catheter. When theprocedure was completed, the catheters were removed from the patient. Thesheaths will be removed in the recovery area. There were nocomplications. Catheter Placement: -Right Atrium/Mapping/Ablation/Right Ventricle (Right Femoral Vein): 8French, 6 Ugandan quadripolar catheter --> 8 Ugandan Quadripolar catheterwith open irrigation tip. -Coronary Sinus (Left Femoral Vein): 7 Ugandan sheath, 7 Ugandan decapolarcatheter. -His (Left Femoral Vein): 6 Ugandan, 6 Ugandan octopolar catheter. Supraventricular Tachycardia Data: SVT was easily inducible with decremental ventricular pacing and with CSburst (2-4 beats) pacing. During SVT, the QRS morphology was normal witha cycle length of 350 ms. The earliest atrial activation was at the Hisor septal region. The shortest VA time was 18 ms. Ventricular overdrivepacing during tachycardia accelerated the atrial rate and led to a VAHVresponse upon cessation of pacing and continuation of tachycardia. 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 Radiofrequency Catheter Ablation: Ablation Site(s): Slow pathway of the AV node in the right posterior septal region. Post-ablation data: SVT was no longer inducible despite administration ofisoproterenol. There was evidence of dual AV node physiology (AH jumpwith single echo beats) at baseline but not on isoproterenol. Electrophysiology Study Data Basic Intervals Study State Underlying Rhythm Cycle Length NH PA AH HV QRS [place] QRSMorphology Baseline NSR 844 198 Post Ablation NSR 803 202 Antegrade 1:1 AV Node Function Study State Pacing Site AV Node SCL 1:1 AH HV Dual AVN Physiology? AVNFast 1:1 AVN Slow 1:1 Wenkebach Cycle Length Baseline CS 300 93 56 310 Post Ablation Isuprel CS 310 300 Post Ablation CS 310 320 Refractory Periods Study State Pacing Site Paced Cycle Length Paced Cycle ERP AVN ERP DualNode Physiology? AVN ERP (fast) AVN ERP (slow) Baseline CS 600 220 Study Events Atrial 600 220 Study Events Atrial 400 200 Post Ablation CS 600 260 Yes 300 Post Ablation Isuprel CS 400 200 Post Ablation CS 500 270 Retrograde 1:1 AV Node Function Study State Pacing Site AV Node SCL 1:1 Dual AVN Physiology? AVN Fast 1:1 AVN Slow 1:1 Wenkebach Cycle Length No VA Conduction? Midline Activation? Baseline RVA <300 Post Ablation Isuprel RVA <300 Post Ablation RVA <300 Arrhythmias Study State Arrhythmia Type Arrhythmia Cycle Length Induction Method Baseline AVNRT (S-F) 360 Burst Pacing Ablation Data AVNRT Energy Source Ablation Catheter Used Rhythm During Ablation # of AttemptsMax Lara Max Temp. Result RF EZ Steer ThermoCool, 3.5mm NSR 2 25 28 Success The slow AV jarad pathway was mapped and ablated. Comments: Total Ablation Time: 75 sec Catheter Use Catheter Type Catheter Description Insertion Site Intracardiac Site SheathSize Sheath Type Sheath Description Diagnostic Inquiry Octapolar Steerable EP Cath Left Femoral Vein LA 7 frStandard Sidearm Diagnostic Inquiry Decapolar Steerable EP Cath Left Femoral Vein CS 7 frStandard Sidearm Diagnostic Inquiry Quadripolar Steerable EP Cath Left Femoral Vein RVA 7fr Standard Sidearm Ablation Bi-D Irrigated Ablation Catheter, D-F Curve Right Femoral VeinMap/Abl 8 fr Standard Sidearm Procedure(s) Performed ? SVT Ablation ? [facility] Ultrasound used for vascular access ? 3D Mapping ? Programmed stimulation after drug Infusion (e.g.,Isoproteronol) Auxiliary Device Mapping System 1: [employer]BE [employer] Procedure Detail Estimated Blood Loss: < 50 ml Specimen Collected: None Level of Sedation Achieved: See Anesthesia Note Total Flouro Time: 1.1 EDUCATION LIAISON Total Flouro Dose: 2.0 mGy Staff Name Role Jemal Bell Drilling Supervisor Britany Newman [facility] Monitor Kishore WestT Fito Quintero, Jose RYANT Dry Cleaning CheckerRuben Rodarte CRNA, Kristopher D Drilling Supervisor Britany Newman RN [facility] E[facility] Monitor Kishore WestT Jose Green CVT Dry Cleaning Checker Ruben Connelly CRNA Medications Ordered and Administered Start Time Stop Time Medication Dose Units Route Ordered By Given By 08:35 0.25% Bupivicaine 2.5 mL Subcut MD Herber Simons MD 08:35 1% Lidocaine Hydrochloride 2.5 mL Subcut Rosangela Simons MD 08:46 Heparin 3000 Units IV MD Britany Simons RN 09:23 (New Bag) Isoproterenol (Isuprel) 4 mcg per min IV MD Britany Gibbons RN The anesthesia service monitored the patient?s conscious sedation duringthe procedure. The medications listed above were verbally ordered by me and read back tome as documented above. Refer to the hemodynamic procedure log report for additional casedetails. electronically signed on 05/25/2024 10:27:23 AM with status of Final Jemal Bell MD Drilling Supervisor [facility] [address] [place] [address] (p) [phone](f) Jemal Bell MD CV IMAGING * PLATELET COUNT (05/25/2024 6:35 AM CDT) Only the most recent of6 resultswithin the time period is included. PLATELET COUNT 334 140 - 440 thou/cu mm 05/25/2024 6:53 AM CDT [facility] MPV 8.9 6.5 - 11.0 fL 05/25/2024 6:53 AM CDT [facility] Blood BLOOD SPECIMEN / Unknown Venipuncture / Unknown 05/25/2024 6:35 AM CDT 05/25/2024 6:45 AM CDT [facility] - 05/25/2024 6:53 AM CDT Every morning while on IV heparin. Every morning while on IV heparin. Necessary every morning while on IV heparin. Christiano Light MD HEMATOLOGY Performing Organization Address [facility] de Phone Number [facility] [address] [place] [address], * HEMOGLOBIN (05/25/2024 6:35 AM CDT) Only the most recent of6 resultswithin the time period is included. HEMOGLOBIN 13.9 12.0 - 16.0 g/dL 05/25/2024 6:53 AM CDT [facility] MCV 90 80 - 100 fL 05/25/2024 6:53 AM CDT [facility] Blood BLOOD SPECIMEN / Unknown Venipuncture / Unknown 05/25/2024 6:35 AM CDT 05/25/2024 6:45 AM CDT [facility] - 05/25/2024 6:53 AM CDT Every morning while on IV heparin. Every morning while on IV heparin. Necessary every morning while on IV heparin. Christiano Light MD HEMATOLOGY Performing Organization Address [facility] de Phone Number [facility] [address] [place] [address], * HEMATOCRIT (05/25/2024 6:35 AM CDT) Only the most recent of6 resultswithin the time period is included. HEMATOCRIT 40.7 33.0 - 51.0 % 05/25/2024 6:53 AM CDT [facility] Blood BLOOD SPECIMEN / Unknown Venipuncture / Unknown 05/25/2024 6:35 AM CDT 05/25/2024 6:45 AM CDT Narrative [facility] - 05/25/2024 6:53 AM CDT Every morning while on IV heparin. Every morning while on IV heparin. Necessary every morning while on IV heparin. Christiano Light MD HEMATOLOGY Performing Organization Address [facility] Phone Number [facility] [address] [place] [address], * EXTRA TUBE LIGHT GREEN (05/25/2024 6:32 AM CDT) Blood BLOOD SPECIMEN / Unknown Extra Tube / Unknown 05/25/2024 6:32 AM CDT 05/25/2024 6:47 AM CDT Fermin Mason MD LABORATORY Performing Organization Address [facility] Phone Number [facility] [address] [place] [address], * EXTRA TUBE GOLD/SST (05/25/2024 6:32 AM CDT) Blood BLOOD SPECIMEN / Unknown Extra Tube / Unknown 05/25/2024 6:32 AM CDT 05/25/2024 6:47 AM CDT Fermin Mason MD LABORATORY Performing Organization Address [facility] Phone Number [facility] [address] [place] [address], * SCAN-CARDIAC STRIP (05/25/2024 12:51 AM CDT) Scanner OTHER * SCAN-CARDIAC STRIP (05/24/2024 3:43 PM CDT) Scanner OTHER * SCAN-CARDIAC STRIP (05/24/2024 7:30 AM CDT) Scanner OTHER * SCAN-CARDIAC STRIP (05/24/2024 1:08 AM CDT) Scanner OTHER * SCAN CORRESP-LABORATORY RESULTS (05/23/2024 2:08 PM CDT) Narrative 05/23/2024 2:08 PM CDT Ordered by an unspecified provider. Other Clinical Staff OTHER * SCAN CORRESP-IMAGING (05/23/2024 2:08 PM CDT) Anatomical Region Laterality Modality Other Narrative 05/23/2024 2:08 PM CDT Ordered by an unspecified provider. Other Clinical Staff OTHER * SCAN-CARDIAC STRIP (05/23/2024 8:29 AM CDT) Scanner OTHER * SCAN-CARDIAC STRIP (05/23/2024 2:37 AM CDT) Scanner OTHER * SCAN-CARDIAC STRIP (05/22/2024 3:17 PM CDT) Scanner OTHER * MAGNESIUM (05/22/2024 1:45 PM CDT) Only the most recent of3 resultswithin the time period is included. MAGNESIUM 1.9 1.6 - 2.4 mg/dL 05/22/2024 2:29 PM CDT [facility] Blood BLOOD SPECIMEN / Unknown Butterfly / Unknown 05/22/2024 1:45 PM CDT 05/22/2024 1:57 PM CDT Fermin Mason MD CHEMISTRY [facility] [address] [place] [address] * SCAN-CARDIAC STRIP (05/22/2024 8:27 AM CDT) Scanner OTHER * SCAN-CARDIAC STRIP (05/22/2024 5:46 AM CDT) Scanner OTHER * SCAN-CARDIAC STRIP (05/21/2024 9:00 PM CDT) Scanner OTHER * SCAN-CARDIAC STRIP (05/21/2024 3:05 PM CDT) Scanner OTHER * (ABNORMAL) ACTIVATED CLOTTING TIME LOG150 ACT (05/21/2024 11:35 AM CDT) Only the most recent of2 resultswithin the time period is included. ACTIVATED CLOTTING TIME, POCT 232(H) 74 - 125 sec 05/21/2024 3:23 PM CDT [facility] Blood BLOOD SPECIMEN / Unknown 05/21/2024 11:35 AM CDT 05/21/2024 3:23 PM CDT Fermin Mason MD HEMATOLOGY [facility] [address] [place] [address], * CVL CORONARY ANGIOGRAM (05/21/2024 11:05 AM CDT) Anatomical Region Laterality Modality Other 05/21/2024 11:0 5 AM CDT Narrative Transcriptions Viral Talbot MD - 05/21/2024 11:46 AM CDT [facility] Cardiac Catheterization Report Name: SHOSHANA RUELAS Event Date: 05/21/2024 11:05 Excellian ID #: [id number] DENISA #: [id number] Patient Class: Inpatient Diagnostic Physician: VIRAL TALBOT [facility] Referring Physician: Date: 1935 Gender: Female Age: 89 Summary/Conclusions PRESENTATION / INDICATIONS * NonSTEMI VASCULAR ACCESS * Using ultrasound guidance and a percutaneous technique, the right radialartery was accessed. Ultrasound was used to confirm vessel patency,localizing needle into the lumen of the vessel. An image was saved for themedical record. DIAGNOSTIC - CORONARY * Moderate coronary disease involving the mid LAD at the site ofbifurcation with a large D1 * iFR of the distal LAD was 0.91 consistent with a physiologicallynon- significant lesion. HEMODYNAMICS * The LVEDP is within normal limits (20mmHg) DIAGNOSTIC SUMMARY ? The LMCA is free of significant disease. ? 20% stenosis in the Proximal LAD ? 50% stenosis in the Mid LAD ? 20% stenosis in the 1st Diagonal ? The Circumflex has mild luminal irregularities. ? 30% stenosis in the 1st Marginal ? The RCA has mild luminal irregularities. LEFT VENTRICULAR FUNCTION ? LV Pressure = 130/20. INTERVENTION ? Pressure Wire to Mid LAD RECOMMENDATIONS & PLAN * Continue with medical therapy * Optimize risk factors and medications: HDL > 50 ; LDL < 70 ;Triglycerides < 100 * Follow up with primary physician * Follow up with health science instructor Consent & Casa Protocol The risks, benefits, and alternatives of the procedure were discussed withthe patient and written informed consent was obtained. Casa protocol was followed. TIME OUT conducted just prior tostarting procedure confirmed patient identity, site/side, procedure,patient position, and availability of correct equipment and implants (ifapplicable). Staff Name Title Viral Talbot Diagnostic Motion Designer Radha Sellers RN Nurse Araceli Rosales RT(R) ScrRuben Monroe RT(R) Monitor Diagnostic Findings * Left Main Coronary Artery ? The LMCA is free of significant disease. * Left Anterior Descending ? 20% stenosis in the Proximal LAD. ? 50% stenosis in the Mid LAD. ? 20% stenosis in the 1st Diagonal. * Circumflex ? The Circumflex has mild luminal irregularities. ? 30% stenosis in the 1st Marginal. * Right Coronary Artery ? The RCA has mild luminal irregularities. Lesion Information Lesion # Vessel Segment Lesion Length Lesion Details 1st Marginal 1 Mid LAD Proximal LAD 1st Diagonal Hemodynamics State: Baseline Pressures (mmHg) Site Systolic Diastolic End Diastolic A Wave V Wave Mean LV 130 7 20 LV 129 6 20 AO 133 49 83 Interventional Results * Left Anterior Descending ? Intervention to the Mid LAD 50% lesion using a Pressure Wire. Interventional Devices Lesion # Vessel Segment Type Name Max Pressure 1 Mid LAD Pressure Wire Wire Pressure OpSens Procedure Details Estimated Blood Loss: < 30 ml Specimen Collected: None Level of Sedation Achieved: Moderate Procedure Start: 11:05 Procedure End: 11:35 Procedure Time: 30 min Fluoroscopy Time: 11.8 min Cumulative Air Kerma: 615 mGy DAP: 4360 uGy/M2 Contrast: Omnipaque (low-osmolar), 90 ml Physiologic Data Weight: 78.0 kg BSA: 1.77 m2 Vascular Access Time Access Sheath Size 11:05 Right Radial Artery, sheath inserted Medications Ordered and Administered Start Time Stop Time Medication Dose Units Route Ordered By Given By 10:58 Fentanyl 25 mcg IV Viral Talbot Anne RN 10:58 Versed 0.5 mg IV Viral Talbot Anne RN 11:00 Oxymiser 3 l per min Nasal cannula Viral Talbot AnneRN 11:05 1% Lidocaine 0.5 ml Subcut Viral Talbot Konstantinos 11:08 Verapamil 3 mg IA Viral Talbot Konstantinos 11:18 Heparin 5000 units IV Viral Talbot Anne RN 11:18 Fentanyl 25 mcg IV Viral Talbot Anne RN 11:18 Versed 0.5 mg IV Viral Talbot Anne RN 11:34 Verapamil 3 mg IA Viral Talbot Konstantinos I personally monitored the patient?s conscious sedation during theprocedure. Conscious sedation starts with the first sedation medication dose ofFentanyl or Versed and ends when the procedure is completed, the patientis stable for recovery status, and the physician or other qualified healthcare professional providing the sedation ends personal [id number] time with the patient. The medications listed above were verbally ordered by me and read back tome as documented above. Refer to the procedure log report for additional case details. electronically signed on 05/21/2024 11:46:27 AM with status of Final Viral Talbot MD [facility] [address] [place] [address] (p) [phone](f) Provider Referring CV IMAGING * SCAN-CARDIAC STRIP (05/21/2024 7:29 AM CDT) Scanner OTHER * (ABNORMAL) APTT (05/21/2024 6:04 AM CDT) Only the most recent of5 resultswithin the time period is included. APTT 63(H) 28 - 36 sec 05/21/2024 7:08 AM CDT [facility] Blood BLOOD SPECIMEN / Unknown Venipuncture / Unknown 05/21/2024 6:04 AM CDT 05/21/2024 6:44 AM CDT Narrative [facility] - 05/21/2024 7:08 AM CDT Therapeutic Range: 57-87 seconds Hawa Bates RN HEMATOLOGY [facility] [address] [place] [address], * SCAN-CARDIAC STRIP (05/20/2024 6:59 PM CDT) Scanner OTHER * SCAN-CARDIAC STRIP (05/20/2024 8:22 AM CDT) Scanner OTHER * SCAN-CARDIAC STRIP (05/20/2024 2:12 AM CDT) Scanner OTHER * SCAN-CARDIAC STRIP (05/19/2024 8:45 PM CDT) Scanner OTHER * (ABNORMAL) TROPONIN T (HS) ONE TIME (05/19/2024 5:33 PM CDT) TROPONIN T HS 632(H) 6-10 ng/L ng/L 05/19/2024 6:20 PM CDT [facility] Blood BLOOD SPECIMEN / Unknown Butterfly / Unknown 05/19/2024 5:33 PM CDT 05/19/2024 5:52 PM CDT Narrative [facility] - 05/19/2024 6:20 PM CDT [id number] [...] department patient population. Christiano Light MD CHEMISTRY [facility] [address] [place] [address], * SCAN-CARDIAC STRIP (05/19/2024 3:47 PM CDT) Scanner OTHER * ECHO TTE COMPLETE W CONTRAST (05/19/2024 12:05 PM CDT) AORTIC VALVE MEAN PG 4 mmHg EJECTION FRACTION 76 % LVEDD 3.6 cm EJECTION FRACTION 65 - 70% Anatomical Region Laterality Modality Ultrasound 05/19/2024 11:3 0 AM CDT Narrative 05/19/2024 12:46 PM CDT ECHOCARDIOGRAM SHOSHANA RUELAS ? Accession#: ?? [id number] : ?1935 89 years Study Date: ?? 05/19/2024 11:30:28 AM Gender: F ?BP: ? 146/84 mmHg Height: 157.00 cm ?BSA: ?1.82 m? ? ? Weight: 81.00 kg ? Tech: ? MSR ? Referring MD: LIBERTY CASTANON Site: ? [facility] Reading Location: [facility] Patient Location: Inpatient. Procedure: 2D w/ Contrast. [...] documentation: 2ml ml diluted Definity, lot #[id number], [facility]# [id number] was administered peripherally to enhance visualization of all left ventricular segments. . This study was interpreted by an [facility] accredited facility. CC: [facility] (med records) [facility], Med/Surg - IP [facility]. ??Final (Updated) ?? Procedure Note Best Fulton MD - 05/19/2024 ECHOCARDIOGRAM SHOSHANA RUELAS : 1935 89 years Study Date: 05/19/2024 11:30:28 AM Gender: F BP: 146/84 mmHg Height: 157.00 cm BSA: 1.82 m? ? ? Weight: 81.00 kg Tech: MSR Referring MD: LIBERTY CASTANON Site: [facility] Reading Location: Mobile ZULEIKA Patient [...] documentation: 2ml ml diluted Definity, lot #[id number], [facility]#[id number] was administered peripherally to enhance visualization of allleft ventricular segments. . This study was interpreted by an [facility] accredited facility. CC: [facility] (med records) [facility], Med/Surg - IP [facility]. Final (Updated) Liberty Castanon MD ECHO ORD * SCAN-RADIOLOGY REPORT (05/18/2024 12:00 AM CDT) Anatomical Region Laterality Modality Other Scanner OTHER * SCAN-CT INTERPRETATION (05/18/2024 12:00 AM CDT) Anatomical Region Laterality Modality Other Scanner OTHER * (ABNORMAL) UA W/ SEDIMENT EXAM REFLEXED PER CRITERIA (05/15/2024 10:02 AM CDT) COLOR Yellow Yellow Color 05/15/2024 10:05 AM CDT [facility] CLARITY Clear Clear Clarity 05/15/2024 10:05 AM CDT [facility] SPECIFIC GRAVITY,URINE 1.015 1.010, 1.015, 1.020, 1.025 05/15/2024 10:05 AM CDT [facility] PH,URINE 7.0 6.0, 7.0, 8.0, 5.5, 6.5, 7.5, 8.5 05/15/2024 10:05 AM CDT [facility] UROBILINOGEN, QUALITATIVE Normal Normal EU/dl 05/15/2024 10:05 AM CDT [facility] PROTEIN, URINE Negative Negative mg/dL 05/15/2024 10:05 AM CDT [facility] GLUCOSE, URINE 250(A) Negative mg/dL 05/15/2024 10:05 AM CDT [facility] KETONES,URINE Negative Negative mg/dL 05/15/2024 10:05 AM CDT [facility] BILIRUBIN,URI NE Negative Negative 05/15/2024 10:05 AM CDT [facility] OCCULT BLOOD,URINE Negative Negative 05/15/2024 10:05 AM CDT [facility] NITRITE Negative Negative 05/15/2024 10:05 AM CDT [facility] LEUKOCYTE ESTERASE Negative Negative 05/15/2024 10:05 AM CDT [facility] Urine URINE SPECIMEN / Unknown Non-Blood / Unknown 05/15/2024 10:02 AM CDT 05/15/2024 10:02 AM CDT Marcia Campa DO URINE [facility] [address] [place] [address], [place] [phone] * (ABNORMAL) TSH (05/15/2024 8:49 AM CDT) TSH 24.80(H) 0.27 - 4.20 uIU/mL 05/15/2024 6:56 PM CDT [facility] Blood BLOOD SPECIMEN / Unknown Venipuncture / Unknown 05/15/2024 8:49 AM CDT 05/15/2024 8:49 AM CDT Narrative [facility] - 05/15/2024 6:56 PM CDT In Adults, TSH values between 5.00 and 10.00 uIU/ml do not necessarily indicate the presence of Hypothyroidism. Correlation with clinical findings such as presence of goiter and/or Thyroperoxidase (TPO) Antibody may be helpful. For more information please refer to MARY CARMEN 2004; 291: 228-238. Marcia Campa DO CHEMISTRY Performing Organization Address City/[facility]/ZIP Co de Phone Number [facility] [address] [place] [address], * (ABNORMAL) HEMOGLOBIN A1C MONITORING (POCT) (05/15/2024 8:49 AM CDT) HEMOGLOBIN A1C MONITORING (POCT) 11.0(H) <=6.4 % 05/15/2024 8:59 AM CDT [facility] Blood BLOOD SPECIMEN / Unknown Venipuncture / Unknown 05/15/2024 8:49 AM CDT 05/15/2024 8:49 AM CDT Narrative [facility] - 05/15/2024 8:59 AM CDT ? [...] Anemias, Splenectomy ? Marcia Campa DO CHEMISTRY [facility] [address] [place] [address], * XR DXA BONE DENSITY 2 SITES [...] recommended in 3-5 years. Haydee Eugene PA-C [facility] 01/12/2023 Narrative 01/12/2023 2:08 PM CDT For Patients: Results are automatically released to your [facility] account once available, in compliance with federal regulations. This means that you may see your results before your provider has had a chance to review them. Please allow 2-3 business days for your provider to comment on the results. XR DXA Bone Mineral Density (BMD) EXAM LOCATION: [facility] [address] [facility] [address] PATIENT NAME: Shoshana Ruelas DATE OF : [...] two scanners are made by the same [employer]. 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
--- NOTE | 2024-06-21 08:15 | CRLHL7_ITS ---
For Patients: As a result of the Century Cures Act, medical imaging exams and procedure reports are released immediately into your electronic medical record. You may view this report before your referring provider. If you have questions, please contact your health care provider. ULTRASOUND-GUIDED BREAST BIOPSY AND POST-BIOPSY DIGITAL MAMMOGRAM FOR BIOPSY MARKER PLACEMENT CLINICAL HISTORY: Suspicious mass. COMPARISON STUDIES: 06/07/2024. TECHNIQUE: Real-time ultrasound with image documentation was used for targeting the breast lesion. Core biopsy specimens were obtained using an automated gun with an 18-gauge biopsy needle. Post-biopsy CC and ML digital mammograms were obtained to document position of the biopsy marker. CONSENT and TIME OUT: The procedure, risks, and alternatives were explained to the patient and a consent was signed. Warren Protocol was followed including pre-procedure verification that relevant information/documentation was available, reviewed and properly matched to the patient; consent accurate and complete; and equipment and supplies available. Time Out was conducted just prior to starting procedure to verify the four required elements: patient identity, correct side/site marked (if applicable), procedure, relevant images/results properly labeled and displayed (if applicable). PROCEDURE: The patient was positioned supine on the ultrasound table. The breast was prepped with ChloraPrep. 10 cc of 1 percent lidocaine used for local anesthesia. Core samples were obtained. A sterile metal biopsy clip was placed percutaneously to arleth the lesion position within the breast. The specimens were placed in 10% formalin and sent to the pathology department. Pressure was held on the biopsy site until all bleeding subsided. The skin incision was closed with Steri-Strips. An ice pack was positioned over the biopsy site. Post-biopsy instructions were reviewed with the patient, and a written copy was given to her. LATERALITY: RIGHT breast. LESION: Solid very hypoechoic irregular mass with distal acoustic shadowing measuring 2.2 x 2.2 x 2.2 cm at 9 o`clock 7 cm from the nipple. SUSPICION FOR MALIGNANCY: High. NUMBER OF SAMPLES: 4-5. BIOPSY CLIP SHAPE: Oval. PROXIMITY OF CLIP TO TARGET: Within the lesion. IMPRESSION: Ultrasound-guided breast biopsy. When the pathology report is available, an addendum to this report will be made. ACR not applicable Dictated by Danilo Casillas MD @ 06/21/2024 9:46:24 AM jj/Dictated by: Danilo Casillas MD @ 06/21/2024 9:46:00 AM (Electronically Signed)
--- NOTE | 2024-06-21 09:00 | CRLHL7_ITS ---
For Patients: As a result of the Century Cures Act, medical imaging exams and procedure reports are released immediately into your electronic medical record. You may view this report before your referring provider. If you have questions, please contact your health care provider. PLEASE SEE ULTRASOUND-GUIDED RIGHT BREAST BIOPSY PERFORMED SAME DAY CRL:katia montalvo/Dictated by: Danilo Casillas MD @ 06/21/2024 9:46:00 AM (Electronically Signed)
== END 2024-06-21 07:55 | disposition home or self-care (01) ==
LOC: US 07:55
PROVIDERS: PCP Family Medicine; Visit Provider Family Medicine
DX: N63.10 Unspecified lump in the right breast, unspecified quadrant (principal); C50.911 Malignant neoplasm of unspecified site of right female breast; R92.8 Other abnormal and inconclusive findings on diagnostic imaging of breast
CPT/HCPCS: 19083; 77065; 88305; 88360; 88361; 88377; A4648; A4649

== ENCOUNTER 2024-07-20 07:44 | Day surgery (SDC) | payer MEDICARE, BC, SELFPAY ==
[2024-07-20] VITALS (9 sets, daily range): BP systolic 111–172; BP diastolic 58–81; PULSE 50–59; RESP 12–16; TEMP 36.1–36.7; O2SAT 93–98; BMI 34.2
--- OUTSIDE RECORDS SUMMARY | 2024-07-20 07:53 | XMS_ITS | Clinical Summary ---
Author Organization [facility] Address [place], [place] [address] Care Team Providers Care Tea And Spice Supervisor Name Role Phone Lesli Vergara Unavailable [phone] Marcia Campa DO Primary Care Provider Allergies [...] meal. DO NOT CRUSH OR CHEW. 0 08/24/2007 Active cholecalciferol (VITAMIN D) 2,000 unit capsule Take 1 capsule by mouth once daily. 0 12/05/2010 Active vitamin-folic acid 1 mg ( RX) tablet/capsuleIndic ations:Osteoporosis , unspecified osteoporosis type, unspecified pathological fracture presence Take 1 tablet by mouth once daily. 90 tablet 3 03/07/2018 Active CPAPIndications:Mod erate obstructive sleep apnea New replacement CPAP machine for home use at pressure: 4-15 cm/H2O , Heated humidifier x 1, Humidifier chamber x 1, 1 Each 11 10/17/2021 Active Shower BenchIndications:Di abetes mellitus without complication (HC) For home use. Length of need: 99 1 Each 11/09/2022 Active lancets (Prodigy Lancets) 28 gauge miscIndications:Kay betes mellitus without complication (HC) As directed. Dispense item covered by pt ins. E11.65 NIDDM type II, uncontrolled - Test 2 times/day. Reason: High A1C 200 Each 3 02/21/2024 Active blood sugar diagnostic (Blood Glucose Test) stripIndications:Un controlled type 2 diabetes mellitus with hyperglycemia (HC) Test 2 times per day due to high A1C 200 Each 3 02/21/2024 Active blood-glucose meterIndications:Un controlled type 2 diabetes mellitus with hyperglycemia (HC) As directed. Dispense meter, test strips, lancets covered by pt ins. E11.9 NIDDM uncontrolled type II - Test 1 times/day. Reason: High A1C. Prodigy glucose meter. 1 Each 02/22/2024 Active levothyroxine (SYNTHROID) 112 mcg tabletIndications:P ostoperative hypothyroidism Take 1 Tablet (112 mcg) by mouth before breakfast. Dose increase 03/09/24 90 Tablet 03/09/2024 Active glyBURIDE (MICRONASE; DIABETA) 5 mg tabletIndications:U ncontrolled type 2 diabetes mellitus with hyperglycemia (HC) TAKE 2 TABLETS TWICE DAILY BEFORE MEALS 360 Tablet 03/26/2024 Active zinc gluconate (ZINC ORAL) Take 50 mg by mouth once daily. Active empagliflozin (JARDIANCE) 10 mg tabletIndications:U ncontrolled type 2 diabetes mellitus with hyperglycemia (HC) Take 1 Tablet (10 mg) by mouth once daily. 90 Tablet 3 05/15/2024 Active valsartan (DIOVAN) 80 mg tabletIndications:C ardiomyopathy, unspecified type (HC),NSTEMI (non-ST elevated myocardial infarction) (HC),Essential hypertension Take 1 Tablet (80 mg) by mouth two times daily. 60 Tablet 2 05/26/2024 Active nitroglycerin (NITROSTAT) 0.4 mg sublingual tabletIndications:A SCVD (arteriosclerotic cardiovascular disease) Place 1 Tablet (0.4 mg) under the tongue every 5 minutes if needed for Chest pain 1st choice (Hold if SBP less than 90 mmHg). Up to 3 tablets in 15 minutes. 30 Tablet 2 05/26/2024 Active metoprolol succinate (TOPROL XL) 50 mg sustained-release tabletIndications:C ardiomyopathy, unspecified type (HC) Take 1 Tablet (50 mg) by mouth once daily. Hold for HR < 60 bpm or SBP < 100 30 Tablet 2 05/27/2024 Active Additional Information Patient taking differently:50 mg Oral DAILY,(No instructions reported), Reported on 05/29/2024 rosuvastatin (CRESTOR) 20 mg tabletIndications:M ixed dyslipidemia Take 1 Tablet (20 mg) by mouth once daily with evening meal. 90 Tablet 3 05/29/2024 Active craniologist (Dexcom G7 Rosin Barrel Filler) for continuous blood glucose monitor (CGM)Indications:Un controlled type 2 diabetes mellitus with hyperglycemia (HC) This is for the glucose DINKEY LOCOMOTIVE OPERATOR , also order the sensors. 1 Each 05/29/2024 Active sensor (Dexcom G7 Sensor) for continuous blood glucose monitor (CGM)Indications:Un controlled type 2 diabetes mellitus with hyperglycemia (HC) To be used to read blood sugars, change sensor every 10 days. This is for the glucose SENSOR, also order the craniologist. 9 Each 3 05/29/2024 Active antiox.mv no.10/omeg3s/lut/ze a (I-CAPS ORAL) Take 1 Tablet by mouth once daily. 07/10/20 24 Discontinu ed(*Patien t states no longer taking) multivitamins-budget examiner als-lutein (Centrum Silver) 0.4 mg-300 mcg- 250 mcg tab Take 1 Tablet by mouth once daily. 07/10/20 24 Discontinu ed(*Patien t states no longer taking) Active Problems Problem Noted Date Diagnosed Date NSTEMI (non-ST elevated myocardial infarction) 0 05/20/2024 Moderate dementia without behavioral disturbance 10/05/2023 Uncontrolled type 2 diabetes mellitus with hyper glycemia 10/05/2023 Paroxysmal SVT (supraventricular tachycardia) Depression, recurrent 04/08/2023 Assessment & Plan (04/08/2023 9:57 AM CDT): chart update only. Marcia Campa D.O. 04/08/2023 [...] Encounters Date Type Department Care Team Description 07/19/2024 Telephone [facility] [address] [place] [address] Marcia Campa, DO Questions 07/13/2024 Telephone [facility] [address] [place] [address] Marcia Campa, DO Questions (Clarification on metoprolol succinate (TOPROL XL) 50 mg sustained-release tablet) 07/10/2024 3:05 PM CDT Preop Visit [facility] [address] [place] [address] Marcia Campa DO Preoperative Exam (right lumpectomy/07/20 [facility], Dr. Mcdonough); Immunization/Injectio n; Immunization/Injectio n (COVID-19 vaccine) 07/10/2024 Travel 06/28/2024 3:15 PM CDT Office Visit [facility] [address] [place] [address] Carmen Mcdonough MD Consult (Right breast cancer referred by Dr. Campa) 06/28/2024 Travel 06/23/2024 Orders Only [facility] [address] [place] [address] Marcia Campa DO 1 scan: (1-Ord) [facility] US GUIDED BREAST BIOPSY RT, 06/21/2024 06/21/2024 Orders Only [facility] Scanner 1 scan: (1-Ord) [facility] US GUIDED BREAST BX RT, 06/21/2024 06/21/2024 Lab Requisition [facility] [phone] Marcia Campa DO 06/16/2024 2:30 PM CDT Home Care Visit [facility] [address] [place] [address] Whitley Welsh RN SN - OASIS DISCHARGE 06/12/2024 Telephone [facility] [address] [place] [address] Marcia Campa DO Medication Management 06/09/2024 3:15 PM CDT Home Care Visit [facility] [address] [place] [phone] Danilo Lake, PT PT - DISCIPLINE DISCHARGE 06/09/2024 Travel 06/07/2024 3:15 PM CDT Ancillary Procedure [facility] [address] [place] [address] 06/07/2024 2:30 PM CDT Ancillary Procedure [facility] [address] [place] [address] 06/07/2024 Ancillary Orders [facility] [address] [place] [address] Marcia Campa DO 06/07/2024 Travel 06/06/2024 3:30 PM CDT Home Care Visit [facility] [address] [place] [address] Danilo Lake, PT PT - HOME VISIT 06/06/2024 10:30 AM CDT Home Care Visit [place] [address] [place] [address] Whitley Welsh RN SN - HOME VISIT 06/01/2024 1:00 PM CDT Home Care Visit [facility] [address] [place] [address], [place] [address] Danilo Lake, PT PT - INITIAL ASSESSMENT 06/01/2024 Travel 05/31/2024 Refill [facility] [address] [place] [address] Marcia Campa DO Refill Request (cephalexin (KEFLEX) 500 mg capsule) 05/31/2024 Telephone [facility] [address] [place] [address] Marcia Campa DO order (ORDER FOR MEDICATION cephalexin (KEFLEX) 500 mg capsule FAX TO [facility]) 05/31/2024 Telephone [facility] [address] [place] [address] Marcia Campa DO Medication Management; Questions 05/29/2024 3:05 PM CDT Office Visit [facility] [address] [place] [address] Marcia Campa DO Hospital F/U ([place] to ANW, 04/2924, NSTEMI/Ablation 05/25/24, ANW) 05/29/2024 11:00 AM CDT Home Care Visit [place] [address] [place] [address] Arpita Block, RN SN - OASIS START OF CARE 05/29/2024 Plan of Care Documentation [facility] [address] [place] [phone] 05/29/2024 Telephone [facility] [address] [place] [phone] Arpita Block, pharmacy clerk (Need ongoing orders for home health) 05/29/2024 Travel 05/29/2024 Patient Outreach [facility] [address] [place] [address] Sole Meadows RN Primary RN Care Management; Hospital F/U (LACE 73) 05/25/2024 8:11 AM CDT Anesthesia Event [facility] [address] [place] [address] Zacarias Ram MD 05/24/2024 Orders Only [facility] Staff, Other Clinical 1 scan: (1-Ord) [facility] 05/24/2024 Orders Only [facility] Staff, Other Clinical 1 scan: (1-Ord) [facility] 05/23/2024 Telephone [facility] [address] [facility] [address] [facility] [address] [place] [phone] Merissa Ortiz PA Pre Procedure; Letter; Education 05/19/2024 3:23 PM CDT - 05/26/2024 3:09 PM CDT Hospital Encounter [facility] [address] [place] [address] [facility] Hospitalists [facility], MD Marlon Salgado, MD Kiki Mcdonough, MD Lam Dowell, Best Troy MD Cardiomyopathy, unspecified type (HC) (Primary Dx); Paroxysmal SVT (supraventricular tachycardia) (HC); PSVT (paroxysmal supraventricular tachycardia) (HC); NSTEMI (non-ST elevated myocardial infarction) (HC); Unspecified essential hypertension; Mixed dyslipidemia; ASCVD (arteriosclerotic cardiovascular disease) Discharge Disposition: Home Health 05/19/2024 1:00 PM CDT Ancillary Procedure [facility] [address] [place] [address] 05/19/2024 Travel 05/18/2024 Orders Only [facility] Scanner 1 scan: (1-Ord) [facility], ANGIO CAP AORTIC DISSECTION, 05/18/2024 05/18/2024 Orders Only [facility] Scanner 1 scan: (1-Ord) [facility], CHEST XRAY, 05/18/2024 05/18/2024 Telephone [facility] [address] [place] [address] Marcia Campa DO orders 05/16/2024 Telephone [facility] [address] [place] [address] Marcia Campa DO fyi 05/15/2024 9:00 AM CDT Office Visit [facility] [address] [place] [address] Marcia Campa DO Diabetes; Medication Management (allergy meds to take daily instead of PRN) 05/15/[address] [place] [address] Lew Soliz MD Pre Procedure (LINQ order ) 05/15/2024 Travel 04/27/2024 Refill [facility] [address] [place] [address] Marcia Campa DO Refill Request (PRAVASTATIN SODIUM 20MG TABS) 04/20/2024 Telephone [facility] [address] [place] [address] Marcia Campa DO Medication Management (nirmatrelvir-ritonav ir 150-100mg (Paxlovid) tablet) 04/19/2024 1:50 PM CDT Phone Office Visit [facility] [address] [place] [address] Marcia Campa DO Covid-19 Positive Result (symptoms started Wednesday, chills, Wednesday runny nose, congestion, cough /-positive test vomiting- felt ok until Wednesday); Telehealth 04/19/2024 Telephone [facility] [address] [place] [address] Marcia Campa DO Form (COVID-19 treatment order) 04/19/2024 Telephone [facility] [address] [place] [address] Marcia Campa DO Medication Management 04/19/2024 Telephone [facility] [address] [place] [address] Marcia Campa DO Appointment 04/19/2024 Travel from Last 3 Months Immunizations Name Administration Dates Next Due AMB INFLUENZA IIV3 (AGE 65+ YRS) PF (Flu Clinic Only) 07/21/2018 AMB Influenza, IIV3 (Age >=3 years)(Flu Clinic Only) 07/18/2010 Amb Influenza, Inact (High-d ose) (Flu Clinic Only) 07/10/2016 COVID-19 VACCINE SPIKEVAX (M ODERNA 50MCG/0.5ML) 12YO+ PFS 07/10/2024 COVID-19 vaccine (Moderna 100mcg/0.5mL) PF, MDV 11/10/2020,10/13/2020 INFLUENZA, IIV3 PF (AGE >= 6 MO) 08/10/2011 Influenza Virus, Unspecified 06/22/2006,07/10/20 04 Influenza, CCIIV3 (Age >=6 MO) 07/05/2014 Influenza, High-dose Inactivated 07/10/2016,06/21,07/07/2014 Influenza, High-dose Quadriv alent Inactivated 07/25/2021 Influenza, IIV3 (Age >=3 years) 07/07/20 13,08/30/2012,08/10/2011,07/18,06/19/2009 Influenza, Inactivated AIIV4 (Age 65+ Years) Preserv Free 06/16/2023,07/27/2022,07/17/2020 Influenza, Inactivated IIV3 (Age 65+ Years) Preserv Free 07/10/2024,06/26/2019,07/09/2017 06/26/2020 Pneumococcal Poly,23-Valent (Pneumovax) 01/20/2010 Pneumococcal conj [...] 0 10/04/2023 Social Connections Answer Date Recorded Do you often feel lonely or isolated from those around you? 0 05/19/2024 Financial Resource Strain Answer Date R ecorded Difficulty of Paying Living Expenses 3 01/12/2024 Difficulty of Paying Living Expenses Not on file 01/12/2024 Food Insecurity Answer Date Recorded Do you worry your food will run out before you are able to buy more? 1 05/19/2024 Transportation Needs Answer Date Record ed Does lack of transportation keep you from medica l appointments? 1 05/19/2024 Does lack of transportation keep you from work, meetings or getting things that you need? 1 05/19/2024 Housing Stability Answer Date Recorded What is your housing situation today? 1 05/19/2024 Sex and Gender Information Value Date Recorded Sex Assigned at Not on file Gender Identity Not on file Sexual Orientation Not on file Obstetrics History Last Filed Vital Signs Vital Sign Reading Time Taken Comments Blood Pressure 103/58 07/10/2024 3:32 PM CDT Pulse 60 07/10/2024 3:32 PM CDT Temperature 36.7 ??C (98 ??F) 07/10/2024 3:32 PM CDT Respiratory Rate 18 06/16/2024 2:35 PM CDT Oxygen Saturation 95% 07/10/2024 3:32 PM CDT Inhaled Oxygen Concentration - - Weight 79.4 kg (175 lb) 07/10/2024 3:32 PM CDT Height 160 cm (5' 3) 05/29/2024 11:59 AM CDT Body Mass Index 31 05/29/2024 11:59 AM CDT Plan of Treatment Upcoming Encounters Date Type Department Care Team (Late st Contact Info) Description 07/20/2024 8:00 AM CDT Office Visit [facility] [address] [place] [address] Carmen Mcdonough MD [address] [place] [address] 08/16/2024 3:30 PM FRAME BUILDER Office Visit [facility] [address] [place] [address] Marcia Campa DO [address] [place] [address] 10/03/2024 3:30 PM FRAME BUILDER Office [facility] [address] [place] [address] Alejandro Marin MD [address] [facility] [address] [place] [address] Health Maintenance Due Date Last Done Comments RSV vaccine for adults or (1 - 1-dose 75+ series) 02/08/2011 Tetanus booster 07/07/2024 07/07/2014, 12/18/2005 COVID-19 vaccine series ( season) 2024 07/10/2024, 03/09/2022, 09/05/2021, Additional history exists Depression screening for age 12+ 10/04/2024 10/04/2023, [...] Completed 2022, 05/06/2020, 02/28/2018, Additional history exists Influenza for age 65+ Completed 07/10/2024 , 06/16/2023, 07/27/2022, Additional history exists Procedures Procedure Name Priority Date/Time Associated Diagnosis Comments LAB TRACKING EVENT Routine 06/21/2024 8: 42 AM CDT PATH BREAST CORE BIOPSY Routine 06/21/2024 8:42 AM CDT CG HER2 BREAST Routine 06/21/2024 8:42 AM CDT CYTOGENETICS MALIGNANT TISSUE Routine 06/21/2024 8:42 AM CDT US BIOPSY BREAST NEEDLE W VIOLET W GUIDE RIGHT ZULEIKA 06/21/2024 12:00 AM CDT Abnormal mammogram SCAN-OPERATIVE/PROCEDU RE REPORT 06/21/2024 12:00 AM CDT US BREAST UNILATERAL RIGHT LIMITED ZULEIKA 06/07/2024 [...] AM CDT EXTRA TUBE LIGHT GREEN Today 6:32 AM CDT EXTRA TUBE GOLD/SST Today [...] 11:08 AM CDT CVL CORONARY ANGIOGRAM Routine 11:05 AM CDT GLUCOSE METER Timed 05/21/2024 [...] (non-ST elevated myocardial infarction) (HC) SCAN-CT INTERPRETATION 12:00 AM CDT SCAN-RADIOLOGY REPORT 05/18/2024 12:00 AM CDT UA W/ SEDIMENT EXAM REFLEXED PER CRITERIA Routine 05/15/2024 10:02 AM CDT Uncontrolled type 2 diabetes mellitus with hyperglycemia (HC) HEMOGLOBIN A1C MONITORING (POCT) Routine 05/15/2024 8:49 AM CDT Uncontrolled type 2 diabetes mellitus with hyperglycemia (HC) TSH Routine 05/15/2024 8:49 AM CDT Postoperative hypothyroidism XR DXA BONE DENSITY 2 SITES AXIAL Routine 01/04/2023 1:30 PM CDT Age-related osteoporosis without current pathological fracture from Last 3 Months or Most Recently Relevant to Health Maintenance Results * LAB TRACKING EVENT (06/21/2024 8:42 AM CDT) Other (Right Breast) Client Collect / Unknown 06/21/2024 8:42 AM CDT 06/21/2024 12:48 PM CDT Marcia Campa DO LAB BILL ONLY [facility] [address] [place] [address], * PATH BREAST CORE BIOPSY (06/21/2024 8:42 AM CDT) Case Report Pathology Report ?Case: [id number] ? Authorizing Provider: ??Marcia Campa, ? Collected: ? 06/21/2024 0842 ? Ordering Location: ? [facility] ?Received: ?06/21/2024 1436 ? Pathologist: ? Darren Valadez MD ? Specimen: ?Right Breast Core Ultrasound Biopsy ? 06/27/2024 1:01 PM CDT [facility] Amendment 06/23/2024 - Amendment issued to incorporate ancillary studies. 06/27/2024 - Amendment issued to incorporate ancillary HER2 FISH studies. 06/27/2024 1:01 PM CDT [facility] Final Diagnosis A) RIGHT BREAST, 9:00, 7 CM FROM NIPPLE, ULTRASOUND-GUIDED CORE BIOPSY: 1. Invasive ductal carcinoma ?? a. Nelson grade: II of III; Racine score: 7 of 9 ?? b. Angio-lymphatic invasion: Absent ?? c. Associated DCIS: Absent 2. Breast Ancillary Testing: ?a. Hormone Receptors: ?Estrogen receptor: Positive (98%, strong staining) ?Progesterone receptor: Positive (96%, strong staining) ?b. HER2 by IHC: Equivocal (2+ by manual morphometry) ? HER2 by FISH: Negative ?HER2/CEP17 ratio: 1.16 ?HER2 signals/cell: 3.25 ?CEP17 signals/cell: 2.80 ?c. Ki-67: 19% 06/27/2024 1:01 PM CDT [facility] Amendment electronically signed by Rachana Cheney MD on 06/27/2024 at 1:01 PM Amendment electronically signed by Draren Valadez MD on 06/23/2024 at 4:27 PM Comment A) This is an image-guided breast biopsy. The pathologic findings should be correlated with radiologic and clinical findings prior to treatment decisions. Case seen in consultation with Dr. Joseph. 06/27/2024 1:01 PM CDT [facility] Clinical Information INDICATION: Right Breast Mass LESION DESCRIPTION: Irregular, solid, hypoechoic LOCATION: 9:00, 7 CM FROM THE NIPPLE SIZE: 2.2 mm 06/27/2024 1:01 PM CDT [facility] Gross Description A) Label: ??Patient's name and right breast 9:00 7 cm Description: 4 Fibrofatty core biopsies Size: Ranging from 0.6-2.3 cm in length by 0.2 cm in diameter Ink color: Green The specimen is submitted in toto in one cassette. Cold ischemic time: Less than 60 minutes, meets current ASCO/CAP guidelines. ?? The specimen was fixed in formalin for a minimum of 6 hours and not longer than 72 hours. EVM 06/21/2024 06/27/2024 1:01 PM CDT [facility] Microscopic Description The final diagnosis is based on microscopic examination of appropriate sections of all specimens. A) The presence of green ink is confirmed on tissue sections. 06/27/2024 1:01 PM CDT [facility] Cytogenetics Summary Cytogenetic testing has been ordered and will be reported separately. 06/27/2024 1:01 PM T [facility] SYNOPTIC REPORTING Breast Biomarker Reporting Template BREAST BIOMARKER REPORTING TEMPLATE - A Protocol posted: 09/01/2023 ?? Test(s) Performed: ? Estrogen Receptor (ER) Status: ?Positive (greater than 10% of cells demonstrate nuclear positivity) ? Percentage of Cells with Nuclear Positivity: ?98 % ? Average Intensity of Staining: ?Strong ? Test Type: ?Laboratory-deve loped test ? Primary Antibody: ?SP1 ?? Test(s) Performed: ? Progesterone Receptor (PgR) Status: ?Positive ? Percentage of Cells with Nuclear Positivity: ?96 % ? Average Intensity of Staining: ?Strong ? Test Type: ?Laboratory-deve loped test ? Primary Antibody: ?16 ?? Test(s) Performed: ? HER2 by Immunohistochemis try: ?Equivocal (Score 2+) ? Percentage of Cells with Uniform Intense Complete Membrane Staining: ?0 % ? Test Type: ?Laboratory-deve loped test ? Primary Antibody: ?4B5 ?? Test(s) Performed: ? HER2 by in situ Hybridization: ?Negative (not amplified) ? Number of Observers: ?2 ? Number of Invasive Tumor Cells Counted: ?60 cells ? Method: ?Dual probe assay ? Average Number of HER2 Signals per Cell: ?3.25 ? Average Number of CEP17 Signals per Cell: ?2.8 ? HER2 / CEP17 Ratio: ?1.16 ? Aneusomy: ?Not identified ? Heterogeneous Signals: ?Not identified ? Test Type: ?Food and Drug Administration (FDA) cleared (test / vendor): [facility] ?? Test(s) Performed: ?Ki-67 ? Ki-67 Percentage of Positive Nuclei: ?19 % ? Primary Antibody: ?MIB1 ?? Cold Ischemia and Fixation Times: ?Meet requirements specified in latest version of the ASCO / CAP Guidelines ?? Testing Performed on Block Number(s): ?A1 METHODS ?? Fixative: ?Formalin ?? Image Analysis: ?Performed ? Method: ?Aperio morphometric analysis ? Biomarkers Scored by Image Analysis: ?ER ? Biomarkers Scored by Image Analysis: ?PgR ? Biomarkers Scored by Image Analysis: ?Ki-67 ?? Comment(s): ?Ki67 19% out of 2,433 nuclei analyzed. The FDA approved [employer] DNA Probe Kit was developed and its performance characteristics determined by [facility]. ??This test incorporates minor modifications to protocol and validated by the [facility] and [facility] to yield equivocal or superior performance. This FISH test uses a multiplex probe stain procedure. 06/27/2024 1:01 PM CDT [facility] Additional Information Patients with breast cancers that are HER2 IHC 3+ or IHC 2+/ONESIMO amplified may be eligible for several therapies that disrupt HER2 signaling pathways. Invasive breast cancers that test 'HER2-negative' (IHC 0, 1+ or 2+/ONESIMO not-amplified) are more specifically considered 'HER2-negative for protein overexpression/ge ne amplification' since non-overexpressed levels of the HER2 protein may be present in these cases. Patients with breast cancers that are HER2 IHC 1+ or IHC 2+/ONESIMO not amplified may be eligible for a treatment that targets non-amplified/non -overexpressed levels of HER2 expression for cytotoxic drug delivery (IHC 0 results do not result in eligibility currently). Interpreted at [facility] - [address], [place] [address] Immunohistochemis try controls were reviewed and approved by the pathologist during this examination. 06/27/2024 1:01 PM CDT [facility] Other (Right Breast Core Ultrasound Biopsy) 06/21/2024 8:42 AM CDT 06/21/2024 2:36 PM CDT Marcia Blaire Campa DO PATHOLOGY/CYTOLOGY [facility] [address] [place] [address], [place] * CG HER2 BREAST (06/21/2024 8:42 AM CDT) Other (Right Breast Core Ultrasound Biopsy) 06/21/2024 8:42 AM CDT 06/23/2024 4:27 PM CDT Marcia Blaire Makt DO LABORATORY Performing Organization Address City/[facility] Co de Phone Number [facility] [address] [place] [address], [place] * CYTOGENETICS MALIGNANT TISSUE STUDIES (06/21/2024 8:42 AM CDT) RFR Breast cancer 06/27/2024 12:09 PM CDT [facility] TEST & RESULT SUMMARY HER2 FISH Breast: See pathology report [id number]. See comments. 06/27/2024 12:09 PM CDT [facility] _ 06/27/2024 12:09 PM CDT [facility] NTR[facility] LAB[facility]ORY COMMENTS This record is used as an internal laboratory test designed for workflow purposes only. 06/27/2024 12:09 PM CDT [facility] SOURCE Right Breast Core Ultrasound Biopsy (Paraffin Slides A1 2 uns) [id number] 06/27/2024 12:09 PM CDT [facility] [facility] Other (Right Breast Core Ultrasound Biopsy) 06/21/2024 8:42 AM CDT 06/23/2024 4:27 PM CDT Marcia Maknell DO LABORATORY Performing Organization Address City/[facility]/ZIP Co de Phone Number [facility] [address] [place] [address], [place] * US BIOPSY BREAST NEEDLE W VIOLET W GUIDE RIGHT (06/21/2024 12:00 AM CDT) Anatomical Region Laterality Modality Breast Right Right Ultrasound Marcia Campa DO US * SCAN-OPERATIVE/PROCEDURE REPORT (06/21/2024 12:00 AM CDT) Scanner OTHER * US BREAST UNILATERAL RIGHT LIMITED (06/07/2024 [...] provider. RIGHT BREAST ULTRASOUND, 06/07/2024 PLEASE SEE [id number] FOR DIGITAL BILATERAL MAMMOGRAM SAME DAY. Marcia [...] Dictated by: Danilo Casillas MD @06/07/2024 3:28:23 PM/jmima PATIENTS: You will also receive a letter [...] CT chest 05/18/2024, remote mammogram images from 2012. TECHNIQUE: Digital BILATERAL mammogram in four projections [...] - 100 mg/dL 05/26/2024 11:21 AM CDT [facility] Blood BLOOD SPECIMEN / Unknown 05/26/2024 11:20 AM CDT 05/26/2024 11:21 AM CDT Best Fritz [facility] [address] [place] [address], [place] * EKG 12 LEAD (05/26/2024 11:00 AM CDT) Only the most recent of7 resultswithin the time period is included. Interpretation [...] NOW QTc 376 ms BEYOND NOW P [place] 16 degrees BEYOND NOW R [place] -57 degrees BEYOND NOW T [place] 73 degrees BEYOND NOW 05/26/2024 11:0 0 AM CDT 05/26/2024 1:25 PM CDT Peewee Pennington MATE CHIEF EKG ORD BEYOND NOW [place], [place] * MR CARDIAC WWO (05/26/2024 10:31 AM CDT) Anatomical Region Laterality Modality HEART, THORAX Magnetic Resonan ce 05/26/2024 9:43 AM CDT Narrative 05/26/2024 1:15 PM CDT ?[facility] ? CMR Report ??MRN: ? [id number] ?Name: ? SHOSHANA RUELAS ?: ?Scan Date: ?Accession Number: ? [id number] ?Status: ? Final ? Electronically signed by [...] ? Base Inferolateral Normal/Hyper 26-50% ? Sub-Endo [place] ? Base Anterolateral Normal/Hyper None ? Normal [...] ? Severe Hypo ?? 76-100% ? Transmural [place] ?? Apical Lateral ? Normal/Hyper None ? Normal ? Gracey ? Severe Hypo ?? 76-100% ? Transmural [place] ?? + + + + +----- ----- [...] SCAN INFO ===== GENERAL ----- --- ?SCANNER ?ARCHEOLOGY PROFESSOR: ??SIEMENS ?MODEL: ??Aera ?CONTRAST AGENT ?TYPE: ??Gadavist ?GD CONCENTRATION: ??1.0 M ?SETUP ?REFERRING PHYSICIAN: ??JAMAR WRIGHT ?ATTENDING PHYSICIAN: ??BEST HAUNG BILLING ===== Patient Account ?[id number] Report generated by [employer], a product of [employer] Procedure Note Ayo Trevino MD - 05/26/2024 [facility] CMR Report Name: SHOSHANA RUELAS : Scan Date: Accession Number: [id number] Status: Final Electronically signed by Ayo Trevino [...] None Normal Base Inferolateral Normal/Hyper 26-50% Sub-Endo [place] Base Anterolateral Normal/Hyper None Normal Mid Anterior Normal/Hyper None Normal Mid Anteroseptal Normal/Hyper None Normal Mid Inferoseptal Normal/Hyper None Normal Mid Inferior Normal/Hyper None Normal Mid Inferolateral Normal/Hyper None Normal Mid Anterolateral Normal/Hyper None Normal Apical Anterior Normal/Hyper None Normal Apical Septal Normal/Hyper None Normal Apical Inferior Severe Hypo 76-100% Transmural [place] Apical Lateral Normal/Hyper None Normal Gracey Severe Hypo 76-100% Transmural [place] + + + + +----- ----- ------+ [...] SCAN INFO ===== GENERAL ----- --- SCANNER ARCHEOLOGY PROFESSOR: SIEMENS MODEL: Aera CONTRAST AGENT TYPE: Gadavist GD CONCENTRATION: 1.0 M SETUP REFERRING PHYSICIAN: JAMAR WRIGHT ATTENDING PHYSICIAN: BEST FIELDS ===== Patient Account [id number] Report generated by [employer], a product of [employer] Chase Santos MD MR * SCAN-CARDIAC STRIP (05/26/2024 7:30 AM CDT) Scanner OTHER * (ABNORMAL) CBC (05/26/2024 6:15 AM CDT) WHITE BLOOD COUNT 9.0 4.5 - 11.0 thou/cu mm 05/26/2024 6:53 AM CDT [facility] RED BLOOD COUNT 3.91(L) 4.00 - 5.20 mil/cu mm 05/26/2024 6:53 AM CDT [facility]AL LAB[facility]ORY HEMOGLOBIN 12.1 12.0 - 16.0 g/dL 05/26/2024 6:53 AM CDT [facility]AL LAB[facility]ORY HEMATOCRIT 35.2 33.0 - 51.0 % 05/26/2024 6:53 AM CDT [facility] TRAL LABORATORY MCV 90 80 - 100 fL 05/26/2024 6:53 AM CDT [facility] TRAL LABORATORY MCH 30.9 26.0 - 34.0 pg 05/26/2024 6:53 AM CDT [facility]AL LAB[facility] MCHC 34.4 32.0 - 36.0 g/dL 05/26/2024 6:53 AM CDT [facility]AL LAB[facility] RDW 12.8 11.5 - 15.5 % 05/26/2024 6:53 AM CDT [facility] PLATELET COUNT 298 140 - 440 thou/cu mm 05/26/2024 6:53 AM CDT [facility] MPV 9.1 6.5 - 11.0 fL 05/26/2024 6:53 AM CDT [facility] NRBC 0.0 % 05/26/2024 6:53 AM CDT [facility] ABS NRBC 0.0 thou /cu mm 05/26/2024 6:53 AM CDT [facility] TRA LABORATORY Blood BLOOD SPECIMEN / Unknown Non-Lab Venipuncture / Unknown 05/26/2024 6:15 AM CDT 05/26/2024 6:41 AM CDT Demler Swanson MD HEMATOLOGY [facility] [address] [place] [address], * (ABNORMAL) SODIUM (05/26/2024 6:15 AM CDT) SODIUM 132(L) 136 - 145 mmol/L 05/26/2024 7:18 AM CDT [facility] Blood BLOOD SPECIMEN / Unknown Non-Lab Venipuncture / Unknown 05/26/2024 6:15 AM CDT 05/26/2024 6:40 AM CDT Delmer Swanson MD CHEMISTRY [facility] [address] [place] [address], [place] * POTASSIUM (05/26/2024 6:15 AM CDT) Only the most recent of4 resultswithin the time period is included. POTASSIUM 3.9 3.5 - 5.1 mmol/L 05/26/2024 7:18 AM CDT [facility] Blood BLOOD SPECIMEN / Unknown Non-Lab Venipuncture / Unknown 05/26/2024 6:15 AM CDT 05/26/2024 6:40 AM CDT Delmer Swanson MD CHEMISTRY Performing Organization Address City/[facility] Co de Phone Number [facility] [address] * (ABNORMAL) CREATININE (05/26/2024 6:15 AM CDT) Only the most recent of2 resultswithin the time period is included. eGFR 87(L) >90 mL/min/1.7 3m2 05/26/2024 7:18 AM CDT [facility] Comment:As of 2021, eG FR is calculated by the CKD-EPI creatinine equation without race adjustment. ??eGFR can be influenced by muscle mass, exercise, and diet. ??The reported eGFR is an estimation only and is only applicable if the renal function is stable. CREATININE 0.58 0.50 - 0.90 mg/dL 05/26/2024 7:18 AM CDT [facility] Blood BLOOD SPECIMEN / Unknown Non-Lab Venipuncture / Unknown 05/26/2024 6:15 AM CDT 05/26/2024 6:40 AM CDT Delmer Swanson MD CHEMISTRY Performing Organization Address [facility] Co de Phone Number [facility] [address] [place] [address], * SCAN-CARDIAC STRIP (05/26/2024 12:19 AM CDT) [...] to ablation. Full report to follow in [place]. Jemal Bell MD, PhD Electrophysiology Staff Pager: [phone] 05/25/2024 9:41 AM Peewee Pennington NP RECEIVING SUPERVISOR ORD * EP STUDY /ABLATION (05/25/2024 7:14 AM CDT) Anatomical Region Laterality Modality Other 05/25/2024 7:14 AM CDT Narrative Transcriptions Jemal Bell MD - 05/25/2024 10:27 AM CDT [facility] Electrophysiology Procedure Report Name: SHOSHANA RUELAS Event Date: 05/25/2024 Excellian ID #: [id number] Date: 1935 Gender: Female Age: 89 DENISA #: [id number] Procedure Performed By: JEMAL BELL [facility] Referring Physician: Summary / Conclusions VASCULAR ACCESS [...] ? Same as Pre-operative diagnosis Consent & Fenwick Protocol Fenwick protocol was followed. TIME OUT conducted just [...] Drug study: Isoproterenol administration. Three dimensional mapping: Kenzeiite mapping system was used. PROCEDURE DESCRIPTION: The [...] portions of this procedure note fordetails. The [facility] three dimensional mapping system was usedduring the [...] Atrium/Mapping/Ablation/Right Ventricle (Right Femoral Vein): 8French, 6 Taiwanese quadripolar catheter --> 8 Taiwanese Quadripolar catheterwith open irrigation tip. -Coronary Sinus (Left Femoral Vein): 7 Taiwanese sheath, 7 Taiwanese decapolarcatheter. -His (Left Femoral Vein): 6 Taiwanese, 6 Taiwanese octopolar catheter. 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 Total Flouro Dose: 2.0 mGy Staff Name Role Jemal Bell Electric Blanket Packer Britany Newman RN [facility] EPT Monitor Kishore West Christopher CVT Manager Business IntelligenceRuben Rodarte CRNA, Kristopher D Electric Blanket Packer Britany Newman RN [facility] EPT Monitor Kishore WestT ScrJose Hermosillo CVT Manager Business Intelligence Ruben Connelly CRNA Medications Ordered and Administered [...] with status of Final Jemal Bell MD Electric Blanket Packer [facility] [address] [place] [address] (p) [phone](f) Jemal Bell MD CV IMAGING * PLATELET COUNT (05/25/2024 6:35 AM CDT) Only the most recent of6 resultswithin the time period is included. PLATELET COUNT 334 140 - 440 thou/cu mm 05/25/2024 6:53 AM CDT [facility] MPV 8.9 6.5 - 11.0 fL 05/25/2024 6:53 AM CDT [facility] Blood BLOOD SPECIMEN / Unknown Venipuncture / Unknown 05/25/2024 6:35 AM CDT 05/25/2024 6:45 AM CDT Narrative [facility] - 05/25/2024 6:53 AM CDT Every morning while on IV heparin. Every morning while on IV heparin. Necessary every morning while on IV heparin. Christiano Light MD HEMATOLOGY [facility] [address] [place] [address], * HEMOGLOBIN (05/25/2024 6:35 AM CDT) Only the most recent of6 resultswithin the time period is included. HEMOGLOBIN 13.9 12.0 - 16.0 g/dL 05/25/2024 6:53 AM CDT [facility] MCV 90 80 - 100 fL 05/25/2024 6:53 AM CDT [facility] Blood BLOOD SPECIMEN / Unknown Venipuncture / Unknown 05/25/2024 6:35 AM CDT 05/25/2024 6:45 AM CDT Narrative [facility] - 05/25/2024 6:53 AM CDT Every morning while on IV heparin. Every morning while on IV heparin. Necessary every morning while on IV heparin. Christiano Light MD HEMATOLOGY Performing Organization Address [facility] Co de Phone Number [facility] [address] [place] [address], * HEMATOCRIT (05/25/2024 6:35 AM CDT) Only the most recent of6 resultswithin the time period is included. HEMATOCRIT 40.7 33.0 - 51.0 % 05/25/2024 6:53 AM CDT [facility] Blood BLOOD SPECIMEN / Unknown Venipuncture / Unknown 05/25/2024 6:35 AM CDT 05/25/2024 6:45 AM CDT Narrative [facility] - 05/25/2024 6:53 AM CDT Every morning while on IV heparin. Every morning while on IV heparin. Necessary every morning while on IV heparin. Christiano Light MD HEMATOLOGY Performing Organization Address City/[facility] Co de Phone Number [facility] [address] [place] [address], [place] * EXTRA TUBE LIGHT GREEN (05/25/2024 6:32 AM CDT) Blood BLOOD SPECIMEN / Unknown Extra Tube / Unknown 05/25/2024 6:32 AM CDT 05/25/2024 6:47 AM CDT Fermin Mason MD LABORATORY Performing Organization Address City/[facility] Co de Phone Number [facility] [address] [place] [address], [place] * EXTRA TUBE GOLD/SST (05/25/2024 6:32 AM CDT) Blood BLOOD SPECIMEN / Unknown Extra Tube / Unknown 05/25/2024 6:32 AM CDT 05/25/2024 6:47 AM CDT Fermin Mason MD LABORATORY [facility] LABORATORY-CENTRAL LABORATORY [address] [place] [address], * SCAN-CARDIAC STRIP (05/25/2024 12:51 AM CDT) [...] - 2.4 mg/dL 05/22/2024 2:29 PM CDT [facility] Blood BLOOD SPECIMEN / Unknown Butterfly / Unknown 05/22/2024 1:45 PM CDT 05/22/2024 1:57 PM CDT Fermin Mason MD CHEMISTRY Performing Organization Address City/[facility] Co de Phone Number [facility] [address] [place] [address], * SCAN-CARDIAC STRIP (05/22/2024 8:27 AM CDT) Scanner OTHER * SCAN-CARDIAC STRIP (05/22/2024 5:46 AM CDT) Scanner OTHER * SCAN-CARDIAC STRIP (05/21/2024 9:00 PM CDT) Scanner OTHER * SCAN-CARDIAC STRIP (05/21/2024 3:05 PM CDT) Scanner OTHER * (ABNORMAL) ACTIVATED CLOTTING TIME [id number] ACT (05/21/2024 11:35 AM CDT) Only the most recent of2 resultswithin the time period is included. ACTIVATED CLOTTING TIME, POCT 232(H) 74 - 125 sec 05/21/2024 3:23 PM CDT [facility] Blood BLOOD SPECIMEN / Unknown 05/21/2024 11:35 AM CDT 05/21/2024 3:23 PM CDT Fermin Mason MD HEMATOLOGY Performing Organization Address [facility]/ZIP Co de Phone Number [facility] [address] [place] [address], * CVL CORONARY ANGIOGRAM (05/21/2024 11:05 AM CDT) Anatomical Region Laterality Modality Other 05/21/2024 11:0 5 AM CDT Narrative Transcriptions Viral Talbot MD - 05/21/2024 11:46 AM CDT [facility] Cardiac Catheterization Report Name: SHOSHANA RUELAS Event Date: 05/21/2024 11:05 Excellian ID #: [id number] DENISA #: [id number] Patient Class: Inpatient Diagnostic Physician: VIRAL TALBOT [facility] Referring Physician: Date: 1935 Gender: Female Age: [...] with primary physician * Follow up with seo coordinator Consent & Fenwick Protocol The risks, benefits, and alternatives of the procedure were discussed withthe patient and written informed consent was obtained. Fenwick protocol was followed. TIME OUT conducted just prior tostarting procedure confirmed patient identity, site/side, procedure,patient position, and availability of correct equipment and implants (ifapplicable). Staff Name Title Viral Talbot Diagnostic Addiction Nurse Radha Sellers RN Nurse Araceli Rosales RT(R) Ruben Kruse RT(R) Monitor Diagnostic Findings * Left Main [...] Anne RN 11:18 Versed 0.5 mg IV VoudViral fontana Anne RN 11:34 Verapamil 3 mg IA Viral Talbot Konstantinos I personally monitored the patient?s conscious sedation during theprocedure. Conscious sedation starts with the first sedation medication dose ofFentanyl or Versed and ends when the procedure is completed, the patientis stable for recovery status, and the physician or other qualified healthcare professional providing the sedation ends personal [id number] time with the patient. The medications listed above were verbally ordered by me and read back tome as documented above. Refer to the procedure log report for additional case details. electronically signed on 05/21/2024 11:46:27 AM with status of Final Viral Talbot MD [facility] [address] [place] [address] (p) [phone](f) Provider Referring CV IMAGING * SCAN-CARDIAC STRIP (05/21/2024 7:29 AM CDT) Scanner OTHER * (ABNORMAL) APTT (05/21/2024 6:04 AM CDT) Only the most recent of5 resultswithin the time period is included. APTT 63(H) 28 - 36 sec 05/21/2024 7:08 AM CDT [facility] Blood BLOOD SPECIMEN / Unknown Venipuncture / Unknown 05/21/2024 6:04 AM CDT 05/21/2024 6:44 AM CDT Narrative [facility] - 05/21/2024 7:08 AM CDT Therapeutic Range: 57-87 seconds Hawa Bates RN [facility] [address] [place] [address], * SCAN-CARDIAC STRIP (05/20/2024 6:59 PM CDT) Scanner OTHER * SCAN-CARDIAC STRIP (05/20/2024 8:22 AM CDT) Scanner OTHER * SCAN-CARDIAC STRIP (05/20/2024 2:12 AM CDT) Scanner OTHER * SCAN-CARDIAC STRIP (05/19/2024 8:45 PM CDT) Scanner OTHER * (ABNORMAL) TROPONIN T (HS) ONE TIME (05/19/2024 5:33 PM CDT) [facility] TROPONIN T HS 632(H) 6-10 ng/L ng/L 05/19/2024 6:[address] [facility] Blood BLOOD SPECIMEN / Unknown Butterfly / Unknown 05/19/2024 5:33 PM CDT 05/19/2024 5:52 PM CDT Narrative [facility] - 05/19/2024 6:20 PM CDT hs-cTnT [...] department patient population. Christiano Light MD CHEMISTRY [facility] LABORATORY-CENTRAL LABORATORY [address] [place] [address], * SCAN-CARDIAC STRIP (05/19/2024 3:47 PM CDT) Scanner OTHER * ECHO TTE COMPLETE W CONTRAST (05/19/2024 12:05 PM CDT) AORTIC VALVE MEAN PG 4 mmHg EJECTION FRACTION 76 % LVEDD 3.6 cm EJECTION FRACTION 65 - 70% Anatomical Region Laterality Modality Ultrasound 05/19/2024 11:3 0 AM CDT Narrative 05/19/2024 12:46 PM CDT ECHOCARDIOGRAM SHOSHANA RUELAS ? Accession#: ?? [id number] : ?1935 89 years Study Date: ?? 05/19/2024 11:30:28 AM Gender: F ?BP: ? 146/84 mmHg Height: 157.00 cm ?BSA: ?1.82 m? ? ? Weight: 81.00 kg ? Tech: ? MSR ? Referring MD: LIBERTY SRIKANTH CASTANON Site: ? [facility] Reading Location: Mobile [facility] Patient Location: Inpatient. Procedure: 2D w/ [...] 2ml ml diluted Definity, lot #[id number], [facility]# [id number] was administered peripherally to enhance visualization of all left ventricular segments. . This study was interpreted by an [facility] accredited facility. CC: HIM (med records) [facility], Med/Surg - IP [facility]. ??Final (Updated) ?? Procedure Note Best Fulton MD - 05/19/2024 ECHOCARDIOGRAM SHOSHANA RUELAS : 1935 89 years Study Date: 05/19/2024 11:30:28 AM Gender: F BP: 146/84 mmHg Height: 157.00 cm BSA: 1.82 m? ? ? Weight: 81.00 kg Tech: R Referring MD: LIBERTY CASTANON Site: [facility] Reading Location: Mobile [facility] Patient Location: Inpatient. Procedure: 2D w/ [...] 2ml ml diluted Definity, lot #[id number], [facility]#[id number] was administered peripherally to enhance visualization of allleft ventricular segments. . This study was interpreted by an [facility] accredited facility. CC: HIM (med records) [facility], Med/Surg - IP [facility]. Final (Updated) Liberty Castanon MD ECHO ORD * SCAN-RADIOLOGY REPORT (05/18/2024 12:00 AM CDT) Anatomical Region Laterality Modality Other Scanner OTHER * SCAN-CT INTERPRETATION (05/18/2024 12:00 AM CDT) Anatomical Region Laterality Modality Other Scanner OTHER * (ABNORMAL) UA W/ SEDIMENT EXAM REFLEXED PER CRITERIA (05/15/2024 10:02 AM CDT) COLOR Yellow Yellow Color 05/15/2024 10:05 AM CDT [facility] CLARITY Clear Clear Clarity 05/15/2024 10:05 AM CDT [facility] SPECIFIC GRAVITY,URINE 1.015 1.010, 1.015, 1.020, 1.025 05/15/2024 10:05 AM CDT [facility] PH,URINE 7.0 6.0, 7.0, 8.0, 5.5, 6.5, 7.5, 8.5 05/15/2024 10:05 AM CDT [facility] UROBILINOGEN, QUALITATIVE Normal Normal EU/dl 05/15/2024 10:05 AM CDT [facility] PROTEIN, URINE Negative Negative mg/dL 05/15/2024 10:05 AM CDT [facility] GLUCOSE, URINE 250(A) Negative mg/dL 05/15/2024 10:05 AM CDT [facility] KETONES,URINE Negative Negative mg/dL 05/15/2024 10:05 AM CDT [facility] BILIRUBIN,URI NE Negative Negative 05/15/2024 10:05 AM CDT [facility] OCCULT BLOOD,URINE Negative Negative 05/15/2024 10:05 AM CDT [facility] NITRITE Negative Negative 05/15/2024 10:05 AM CDT [facility] LEUKOCYTE ESTERASE Negative Negative 05/15/2024 10:05 AM CDT [facility] Urine URINE SPECIMEN / Unknown Non-Blood / Unknown 05/15/2024 10:02 AM CDT 05/15/2024 10:02 AM CDT Marcia Campa DO URINE [facility] [address] [place] [address], * (ABNORMAL) TSH (05/15/2024 8:49 AM CDT) TSH 24.80(H) 0.27 - 4.20 uIU/mL 05/15/2024 6:56 PM CDT [facility] Blood BLOOD SPECIMEN / Unknown Venipuncture / Unknown 05/15/2024 8:49 AM CDT 05/15/2024 8:49 AM CDT Narrative [facility] LABORATORY-CENTRAL LABORATORY - 05/15/2024 6:56 PM CDT In Adults, TSH values between 5.00 and 10.00 uIU/ml do not necessarily indicate the presence of Hypothyroidism. Correlation with clinical findings such as presence of goiter and/or Thyroperoxidase (TPO) Antibody may be helpful. For more information please refer to MARY CARMEN 2004; 291: 228-238. Marcia Campa DO CHEMISTRY Performing Organization Address [facility]/ZIP Co de Phone Number [facility] LABORATORY-CENTRAL LABORATORY [address] [place] [address], * (ABNORMAL) HEMOGLOBIN A1C MONITORING (POCT) (05/15/2024 8:49 AM CDT) HEMOGLOBIN A1C MONITORING (POCT) 11.0(H) <=6.4 % 05/15/2024 8:59 AM CDT [facility] Blood BLOOD SPECIMEN / Unknown Venipuncture / Unknown 05/15/2024 8:49 AM CDT 05/15/2024 8:49 AM CDT Narrative [facility] - 05/15/2024 8:59 AM CDT [...] Anemias, Splenectomy ? Marcia Campa DO CHEMISTRY Performing Organization Address [facility]/ZIP Co de Phone Number [facility] [address] [place] [address], [place] [phone] * XR DXA BONE DENSITY 2 SITES [...] recommended in 3-5 years. Haydee Eugene PA-C [facility] 01/12/2023 Narrative 01/12/2023 2:08 PM CDT For Patients: Results are automatically released to your [facility] account once available, in compliance with federal regulations. This means that you may see your results before your provider has had a chance to review them. Please allow 2-3 business days for your provider to comment on the results. XR DXA Bone Mineral Density (BMD) EXAM LOCATION: [address] [address] PATIENT NAME: Shoshana Ruelas DATE OF : [...] two scanners are made by the same wine steward/stewardess. PROCEDURE: Dual-energy x-ray absorptiometry performed with routine [...] Documents on File Type Date Recorded Patient Bee Worker Expl anation POLST 07/10/2024 Healthcare Directive 11/07/2014 015 * Full Code (Latest Code Status on File) Date Activated Date Inactivated Comments 05/19/2024 4:53 PM 05/26/2024 6:02 PM Question Answer Comments Code Status Discussion: Reviewed Preferences * Full Code Date Activated Date Inactivated Comments 11/09/2014 9:52 AM 11/10/2014 4:05 PM Care Teams Tea And Spice Supervisor Relationship Specialty Start Date End Date Marcia Campa DO [address] [place] [address] PCP - General Family Practice 07/21/17 Lesli Vergara AuD Audiology 07/19/13
[2024-07-20] MEDS: INSULIN REGULAR, HUMAN 100 UNIT/ML VIAL SUBCUT (09:00)
--- NOTE | 2024-07-20 09:00 | CRLHL7_ITS ---
For Patients: As a result of the Century Cures Act, medical imaging exams and procedure reports are released immediately into your electronic medical record. You may view this report before your referring provider. If you have questions, please contact your health care provider. INDICATION: Right-sided breast carcinoma presenting for sentinel node evaluation prior to surgery. TECHNIQUE: [place] lymph node study performed after the intradermal injection of 0.51 mCi [id number] Sulfur Colloid in the upper outer right breast. FINDINGS: The procedure and its risks were explained in detail to the patient including but not limited to the risk of bleeding, infection, and a nondiagnostic procedure. The patient understood the procedure and its risks and elected to proceed. [place] protocol was followed and the Time Out procedure was performed. Then, using sterile technique and local anesthesia, an intradermal injection of 0.51 mCi [id number] Sulfur Colloid was made in the upper outer right breast in the periareolar region. No complications. Dictated by Danilo Casillas MD @ 07/20/2024 11:00:58 AM (Electronically Signed)
[2024-07-20] MEDS: SODIUM CHLORIDE 0.9 % (FLUSH) 10 ML SYRINGE IVF (09:01)
--- NOTE | 2024-07-20 10:29 | W.PM.H&PU ---
History & Physical Update History & Physical Update H&P Reviewed and patient assessed: No changes noted
--- NOTE | 2024-07-20 10:30 | CRLHL7_ITS ---
For Patients: As a result of the Cures Act, medical imaging exams and procedure reports are released immediately into your electronic medical record. You may view this report before your referring provider. If you have questions, please contact your health care provider. RIGHT BREAST DIAGNOSTIC SPECIMEN CLINICAL HISTORY: Breast cancer. COMPARISON: 06/07/2024. FINDINGS: Two views of the RIGHT breast specimen submitted. The biopsied mass is present along with the biopsy clip. IMPRESSION: The specimen contains the biopsied mass and biopsy clip. ACR not applicable. Dictated by Danilo Casillas MD @ 07/20/2024 12:16:31 PM /sp SP/Dictated by: Danilo Casillas MD @ 07/20/2024 12:16:00 PM (Electronically Signed)
[2024-07-20] MEDS: ISOSULFAN BLUE 5 ML VIAL INJECTION (10:49)
[2024-07-20] MEDS: CEFAZOLIN 2 GM INJ IVP (10:53)
[2024-07-20] MEDS: BUPIVACAINE 0.25% 30 ML INJECTION (11:26)
[2024-07-20] MEDS: LIDOCAINE 1% MDV 20 ML INJECTION (11:26)
--- NOTE | 2024-07-20 12:28 | W.ANESCHARGE ---
Anesthesia Charges Start Date/Time Anesthesia Start Date: 07/20/24 Anesthesia Start Time: 10:37 Stop Date/Time Anesthesia Stop Date: 07/20/24 Anesthesia Stop Time: 12:27
--- NOTE | 2024-07-20 12:59 | W.ANESCHARGE ---
Anesthesia Charges Start Date/Time Anesthesia Start Date: 07/20/24 Anesthesia Start Time: 10:37 Stop Date/Time Anesthesia Stop Date: 07/20/24 Anesthesia Stop Time: 12:27 Summary Extremes of Age - Over 70 or under 1: MDA
--- NOTE | 2024-07-20 13:51 | P.GSOP_ITS ---
Operative Note Date of procedure: 07/20/24 Pre-op diagnosis: Invasive ductal carcinoma, right breast Post-op diagnosis: Same Type of Procedure: 1. Right breast lumpectomy 2. [place] lymph node biopsy, right axilla 3. Injection of radionucleotide tracer Indications: Patient is an 89-year-old female with recent diagnosis invasive ductal carcinoma of the right breast. Please see consultation note for full discussion regarding treatment recommendations based off of NCCN guidelines. Risks and benefits of the procedure were discussed at length with the patient and her daughters. Risks included but was not limited to: Bleeding, infection, risk of damage to surrounding structures, possible need for additional procedures, risk of lymphe terry or nerve injury with any axillary surgery and postoperative complications such as pneumonia, pulmonary emboli or OK. All questions and concerns were addressed with the patient agreeing to proceed. Procedure Description: Prior to arrival in the operating room, the patient underwent injection of radiocolloid. The patient was then brought to the operating room where anesthesia was induced. I injected 3 ml of lymphazurin blue and performed breast massage for a period of 5 minutes. The right breast and axilla were prepped and draped in the usual sterile fashion. Timeout was confirmed. Local anesthesia was infiltrated into around the palpable right breast mass and associated overlying skin changes of the outer, inferior right breast. An ellipse was made in this area. Dissection was continued with electrocautery through breast tissue, ensuring removal of the entire palpated mass and a rim of healthy tissue. This was sent for frozen evaluation. Radiology confirmed placement of the clip. Pathology called back and confirmed margins were negative on frozen evaluation. We then elected to perform the sentinel node aspect of the procedure. Using the neoprobe, the area of maximal counts was identified through the same incision site. Local anesthesia was infiltrated into the skin and an incision was made. This was carried down to the subcutaneous tissue using electrocautery. Using a combination of blunt dissection and electrocautery, a hot and blue node was resected. One additional nodes were resected in a similar fashion, taking care to clip the lymphatics. These were sent to pathology for permanent evaluation. The wound was irrigated and all irrigant suctioned from the wound. Additional local anesthesia was infiltrated. The wounds were then closed in layers using absorbable suture, and Dermbond was placed over the wounds. The patient was awakened without incident and taken to PACU in stable condition. Sponge, needle and instrument counts were correct x3 at the termination of the case. Findings: Palpable right breast mass, removed with confirmed clip and margins negative. Two sentinel lymph nodes removed. Anesthesia: local Surgeon: Carmen Mcdonough MD Estimated blood loss (mL): 5 Additional Specimen Information: 1. Right breast mass 2. [place] lymph node 1, right axilla 3. [place] lymph node 2, right axilla Condition: stable Disposition: PACU [place] Node Biopsy for Breast Cancer Operation Performed with Curative Intent: Yes Tracers used to Identify sentinel nodes in the upfront surgery (non-neoadjuvant) setting: Dye and Radioactive Tracer Tracers used to identify sentinel nodes in the neoadjuvant setting: N/A All nodes (colored or non-colored) present at the end of a dye filled lymphatic channel were removed: Yes All significantly radioactive nodes were removed: Yes All palpably suspicious nodes were removed: Yes Biopsy proven positive nodes marked with clips prior to chemotherapy were identified and removed: Not Applicable
[2024-07-20] MEDS: ACETAMINOPHEN 325 MG TABLET 650 MG PO (14:30)
--- NOTE | 2024-07-20 15:45 | SUR.PHASEII ---
pt c/o pain in chest area. she is not able to isolate exactly where. She sometimes calls it pain and then calls it pressure. ekg done to rule out any acute cardiac problem. ekg shows afib with slow vent. response. not a new finding. anethseia consulted. not further action.
== END 2024-07-20 15:25 | disposition home or self-care (01) ==
PROVIDERS: PCP Family Medicine; Visit Provider Surgery
PROC: (CPT 19301; principal; 2024-07-20 10:30)
PROC: (CPT 19301; 2024-07-20 10:30)
DX: C50.811 Malignant neoplasm of overlapping sites of right female breast (principal); E11.65 Type 2 diabetes mellitus with hyperglycemia; I10 Essential (primary) hypertension; F03.B0 Unspecified dementia, moderate, without behavioral disturbance, psychotic disturbance, mood disturbance, and anxiety
CPT/HCPCS: 19301; 38500; 01610; 38792; 82962; 88307; 99100; J2003; A9270; A9541; J0665; J0690; J1100; J1815; J2405; J2704; J3010; J3490

== ENCOUNTER 2024-11-30 14:10 | Outpatient (RCR) | payer MEDICARE, BC, SELFPAY ==
--- NOTE | 2024-08-09 15:30 | ONC.NURNOTE ---
Call to patients daughter Diana to discuss plan of care. Left message requesting return call to [facility] to see if we can answer any questions and to find out if Shoshana would like to move forward with endocrine therapy.
--- NOTE | 2024-08-11 12:53 | ONC.NURNOTE ---
Call from patients daughter Diana, who is Shoshana's health care agent. Diana reports that they are not interested in moving forward with endocrine or Radiation Oncology. Per Diana, Shoshana's dementia is so bad that she does not even remember meeting with the oncologist and her family is concerned about the impact of the endocrine therapy on Shoshana's arthritis/mobility. Diana shares that their goal of care is comfort and quality of life at this time. 3 month follow up visit scheduled with Dr. Lowry.
== END 2025-01-30 23:59 | disposition home or self-care (01) ==
LOC: CCIC 14:10
PROVIDERS: PCP Family Medicine; Visit Provider Physician Assistant
DX: C50.911 Malignant neoplasm of unspecified site of right female breast (principal); Z17.0 Estrogen receptor positive status [ER+]
CPT/HCPCS: 99202; 99205; 99213; G0463

== ENCOUNTER 2025-05-18 17:51 | Outpatient (CLI) | payer MEDICARE, BC, SELFPAY | END 2025-05-18 17:52 | disposition home or self-care (01) | LOC: AMB 05-22 17:03 | PROVIDERS: PCP Family Medicine; Visit Provider Emergency Medicine | DX: S51.812A Laceration without foreign body of left forearm, initial encounter (principal); X78.8XXA Intentional self-harm by other sharp object, initial encounter; Y92.129 Unspecified place in nursing home as the place of occurrence of the external cause | CPT/HCPCS: A0425; A0429 ==

== ENCOUNTER 2025-05-18 18:12 | Emergency (ER) | payer MEDICARE, BC, SELFPAY ==
[2025-05-18 18:20] VITALS: BP 174/91; PULSE 93; RESP 18; TEMP 36.3; O2SAT 92; BMI 28.3
--- OUTSIDE RECORDS SUMMARY | 2025-05-18 19:15 | XMS_ITS | Clinical Summary ---
Author Organization [email or web address] Address [address] [place] [id number] Care Team Providers Care Heel Blacker Name Role Phone Lesli Vergara Lyssa Unavailable [phone] Marcia Campa DO Primary Care Provider Lew Soliz MD Unavailable [phone] Allergies Active Allergy Reactions Criticality Noted Date Comments D And C Yellow No.10 Itching 01/20/2010 Did not tolerate aspirin with yellow dye Hydrochlorothiazide 02/10/2007 bad reaction Metformin Diarrhea 04/09/2019 lower dose 1000mg or less was ok to only occasionally loose. Yellow Dye *Unknown 05/31/2024 Medications ASPIRIN 81 MG TAB, DELAYED RELEASE Take 81 mg by mouth once daily with a meal. DO NOT CRUSH OR CHEW. 0 007 Active cholecalciferol (VITAMIN D) 2,000 unit capsule Take 1 capsule by mouth once daily. 0 011 Active vitamin-folic acid 1 mg ( RX) tablet/capsuleIndi cations:Osteoporos is, unspecified osteoporosis type, unspecified pathological fracture presence Take 1 tablet by mouth once daily. 90 tablet 3 018 Active Shower BenchIndications:D iabetes mellitus without complication (HC) For home use. Length of need: 99 1 Each 023 Active zinc gluconate (ZINC ORAL) Take 50 mg by mouth once daily. Active valsartan (DIOVAN) 80 mg tabletIndications: Cardiomyopathy, unspecified type (HC),NSTEMI (non-ST elevated myocardial infarction) (HC),Essential hypertension Take 1 Tablet (80 mg) by mouth two times daily. 60 Tablet 2 05/26/20 24 2:45 PM CDT 024 Active blood-glucose meterIndications:U ncontrolled type 2 diabetes mellitus with hyperglycemia (HC) Dispense meter, test strips, lancets covered by pt ins. E11.65 NIDDM type II, uncontrolled - Test 2 times/day. Reason: High A1C 1 Each 024 Active blood sugar diagnostic stripIndications:U ncontrolled type 2 diabetes mellitus with hyperglycemia (HC) Dispense item covered by pt ins. E11.65 NIDDM type II, uncontrolled - Test 2 times/day. Reason: High A1C 100 Each 11 024 Active levothyroxine (SYNTHROID) 125 mcg tabletIndications: Postoperative hypothyroidism Take 1 Tablet (125 mcg) by mouth before breakfast. 90 Tablet 3 024 Active ibuprofen (ADVIL; MOTRIN) 200 mg tablet Take 1 Tablet (200 mg) by mouth one time if needed for Pain. 025 Active acetaminophen (TYLENOL EXTRA STRGTH) 500 mg tablet Take 1 Tablet (500 mg) by mouth every 6 hours if needed for Pain. Max acetaminophen dose: 4000mg in 24 hrs. 025 Active medication order composer Benefiber sugar free PRN 2 tsp oral 025 Active cetirizine (ZYRTEC) 10 mg tablet Take 1 Tablet (10 mg) by mouth once daily. 025 Active empagliflozin (JARDIANCE) 25 mg tabletIndications: Uncontrolled type 2 diabetes mellitus with hyperglycemia (HC) Take 1 Tablet (25 mg) by mouth once daily. 90 Tablet 4 025 Active rosuvastatin (CRESTOR) 20 mg tabletIndications: Mixed dyslipidemia Take 1 Tablet (20 mg) by mouth once daily with evening meal. 90 Tablet 3 025 Active senior mobile developer ([email or web address] G7 Thread Checker) for continuous blood glucose monitor (CGM)Indications:U ncontrolled type 2 diabetes mellitus with hyperglycemia (HC) This is for the glucose STRAINER TENDER , also order the sensors. 1 Each 025 Active sensor (Dexcom G7 Sensor) for continuous blood glucose monitor (CGM)Indications:U ncontrolled type 2 diabetes mellitus with hyperglycemia (HC) To be used to read blood sugars, change sensor every 10 days. This is for the glucose SENSOR, also order the senior mobile developer. 9 Each 025 Active pen needle,diabetic dual safty (BD AutoShield Duo Pen Needle) 30 gauge x 3/16 ndleIndications:Un controlled type 2 diabetes mellitus with hyperglycemia (HC) As directed. 100 Each 3 025 Active carbamide peroxide 6.5 % otic solutionIndication s:Cerumen debris on tympanic membrane of both ears Place 5 Drops into both ears two times daily. 15 mL 025 Active vit A/vit C/vit E/zinc/copper (PRESERVISION AREDS ORAL) Take by mouth. Act dharmesh nitroglycerin 0.4 mg sublingual tabletIndications: ASCVD (arteriosclerotic cardiovascular disease) Place 1 Tablet (0.4 mg) under the tongue every 5 minutes if needed for Chest pain 1st choice (Hold if SBP less than 90 mmHg). Up to 3 tablets in 15 minutes. 30 Tablet 2 025 Active insulin glargine (U-100) (Lantus Solostar U-100 Insulin) 100 unit/mL (3 mL) penIndications:Unc ontrolled type 2 diabetes mellitus with hyperglycemia (HC) INJECT 12 UNITS SUBCUTANEOUSLY AT BEDTIME 30 mL 025 Active metoprolol succinate (TOPROL XL) 50 mg sustained-release tabletIndications: Cardiomyopathy, unspecified type (HC),PSVT (paroxysmal supraventricular tachycardia) (HC) Take 1 Tablet (50 mg) by mouth once daily. 30 Tablet 11 025 Active sertraline (ZOLOFT) 25 mg tabletIndications: Mild major depression Take 1 Tablet (25 mg) by mouth once daily in the morning. 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 Semi-electric bed. Length of need 99 months. Bed director of property management:no 1 Each 025 Active glyBURIDE 5 mg tabletIndications: Uncontrolled type 2 diabetes mellitus with hyperglycemia (HC) TAKE 2 TABLETS (10MG) BY MOUTH EVERY MORNING;TAKE 1 TABLET (5MG) WITH EVENING MEAL 180 Tablet 025 04/27 Discontinued hospital bedIndications:Mod erate dementia without behavioral disturbance (HC),Lumbosacral spondylosis without myelopathy Hospital bed with mattress and 1/2 rails. Semi-electric bed. Length of need 99 months. Bed director of property management:no 1 Each 025 05/16 Discontinued( *Medication adjustment) Active Problems Problem Noted Date Diagnosed Date Paroxysmal atrial fibrillation 12/04/2024 NSTEMI (non-ST elevated myocardial infarction) 0 05/20/2024 [...] Encounters Date Type Department Care Team Description 05/18/[address] [address] Marcia Campa, Form (Documentation on Needs ) 05/11/[address] [address] Marcia Campa, 05/09/2025 2:15 PM CDT Office Visit [facility] [address] [place] [address] Marcia Campa, Follow Up (mood/); memory care (talk about moving into memory care facility) 05/09/2025 Travel 05/07/[address] [address] Marcia Campa DO Questions (Advise patient memory care became available? ) 05/03/2025 Telephone [facility] [address] [place] [address] Marcia Campa, DO Orders 04/25/2025 Refill [facility] [address] [place] [address] Marcia Campa DO Refill Request (Glyburide) 04/13/2025 Nurse Triage [facility] [address] [place] [address] Marcia Campa DO Medication Management (follow up/) 04/12/2025 Telephone [facility] [address] [place] [address] Marcia Campa DO Diarrhea; Nausea 04/11/2025 1:25 PM CDT Office Visit [address] [address] Marcia Campa DO Diabetes; Memory Loss 04/11/2025 Travel 04/11/[address] [address] Marcia Campa DO Error-please disregard 03/27/2025 Refill [facility] [address] [place] [address] Lew Soliz MD Refill Request (Metoprolol Succinate) 03/14/2025 3:05 PM CDT Office Visit [facility] [address] [place] [address] Marcia Campa DO URI (Cough, runny nose, fatigue and loss of appetite x 1 1/2 week ) 03/14/2025 Travel 03/13/2025 Telephone [facility] [address] [place] [address] Marcia Campa DO Appointment Request (Cold symptoms ) 02/27/2025 Refill [facility] [address] [place] [address] Marcia Campa DO Refill Request (Lantus Solostar U-100 Insulin) from Last 3 Months Immunizations Immunization Administration Dates Next Due AMB INFLUENZA IIV3 [...] Unspecified 06/22/2006,07/10/20 04 Influenza, CCIIV3 (Age >=6 M O) (Egg Free) 07/05/2014 Influenza, High-dose Inactivated 07/10/2016,06/21,07/07/2014 Influenza, High-dose [...] Answer Date Recorded PHQ-2 TOTAL SCORE 0 12/01/2024 Social Connections Answer Date Recorded Do you [...] is your housing situation today? 1 05/19/2024 Interpersonal Safety Answer Date Record ed Are you being hit, kicked, p ushed or yelled at (see row info)? No 05/19/2024 Interpersonal Safety Abuse 12 - 18 Not on file 05/19/2024 Interpersonal Safety Ambulatory Vulnerability No t on file 05/19/2024 Utilities Answer Date Recorded Do you have trouble paying f or utilities (for example, heat, electricity, water, phone)? 1 05/19/2024 Comments No Sex and Gender Information Value Date Recorded Sex Assigned at Not on file Legal Sex Female 6:24 AM DIRECTOR OF RETAIL MARKETING Gender Identity Not on file Sexual Orientation Not on file Obstetrics History Last Filed Vital Signs Vital Sign Reading Time Taken Comments Blood Pressure 112/61 05/09/2025 2:19 PM CDT Pulse 88 05/09/2025 2:19 PM CDT Temperature 36.9 C (98.5 F) 03/14/2025 3:11 PM CDT Respiratory Rate 18 06/16/2024 2:35 PM CDT Oxygen Saturation 95% 05/09/2025 2:19 PM CDT Inhaled Oxygen Concentration - - Weight 77.1 kg (170 lb) 05/09/2025 2:19 PM CDT Height 156.7 cm (5' 1.69) 12/01/2024 2:41 PM CD T Body Mass Index 31.4 12/01/2024 2:41 PM CDT Plan of Treatment Upcoming Encounters Date Type Department Care Team (Late st Contact Info) Description 07/25/2025 2:15 PM DIRECTOR OF RETAIL MARKETING Office Visit [facility] [address] [place] [address] Marcia Campa DO [address] [place] [address] Health Maintenance Due Date Last Done Comments RSV vaccine for adults or (1 - 1-dose 75+ series) 02/08/2011 Tetanus booster 07/07/2024 07/07/2014, 12/18/2005 COVID-19 vaccine series (2023- season) 2025 07/10/2024, 03/09/2022, 09/05/2021, Additional history exists Influenza Vaccine (#1) 2025 , 06/16/2023, 07/27/2022, Additional history exists BMI (ht and wt on same day) for age 18+ 12/01/2025 12/01/2024, 10/03/2024, 01/12/2024, Additional history exists Medicare Wellness for age 65+ 12/02/2025 12/01/2024, 10/04/2023, 09/30/2022, Additional history exists Depression screening for age 12+ 12/04/2025 12/04/2024, 12/01/2024, 10/04/2023, Additional history exists Pneumococcal series for age 50+ Completed 01/22/2015, 01/20/2010 Zoster (shingles) series for age 50+ Completed 07/03/2019, 04/24/2019, 01/20/2010 DEXA/DXA scan for age 65+ Completed 2022, 05/06/2020, 02/28/2018, Additional history exists Hepatitis B series for 19+ Aged Out N o longer eligible based on patient's age to complete this topic Procedures Procedure Name Priority Date/Time Associated Diagnosis Comments HEMOGLOBIN A1C MONITORING (POCT) Routine 04/11/2025 1:16 PM CDT Uncontrolled type 2 diabetes mellitus with hyperglycemia (HC) BASIC METABOLIC PANEL Routine 04/11/2025 1:16 PM CDT Uncontrolled type 2 diabetes mellitus with hyperglycemia (HC) Essential hypertension XR DXA BONE DENSITY 2 SITES AXIAL Routine 01/04/2023 1:30 PM CDT Age-related osteoporosis without current pathological fracture from Last 3 Months or Most Recently Relevant to Health Maintenance Results * (ABNORMAL) HEMOGLOBIN A1C MONITORING (POCT) (04/11/2025 1:16 PM CDT) POC HEMOGLOBIN A1C 8.5(H) <6.0 % OF TOTAL HGB [facility] Comment: Any point of care results exhibiting inconsistency with the patient's clinical status should be repeated using a different testing method. Blood BLOOD SPECIMEN / Unknown 04/11/2025 1:16 PM CDT 04/11/2025 1:17 PM CDT Marcia Campa DO CHEMISTRY Final Resul t [facility] [address] [place] [address], [facility] [address] [place] [address] * (ABNORMAL) BASIC METABOLIC PANEL (04/11/2025 1:16 PM CDT) GLUCOSE 277(H) 65 - 99 mg/dL [facility] Comment: Fasting reference interval For someone without known diabetes, a glucose value >125 mg/dL indicates that they may have diabetes and this should be confirmed with a follow-up test. UREA NITROGEN (BUN) 22 7 - 25 mg/dL [facility] CREATININE 0.78 0.60 - 0.95 mg/dL [facility] EGFR 73 > OR = 60 mL/min/1. 73m2 [facility] BUN/CREATININE RATIO SEE NOTE: 6 - 22 (calc) [facility] Comment: Not Reported: BUN and Creatinine are within reference range. SODIUM 138 135 - 146 mmol/L [facility] POTASSIUM 5.1 3.5 - 5.3 mmol/L [facility] CHLORIDE 99 98 - 110 mmol/L [facility] CARBON DIOXIDE 30 20 - 32 mmol/L [facility] ELECTROLYTE BALANCE 9 7 - 17 mmol/L (calc) [facility] CALCIUM 9.2 8.6 - 10.4 mg/dL [facility] Blood BLOOD SPECIMEN / Unknown 04/11/2025 1:16 PM CDT 04/11/2025 1:16 PM CDT us Marcia Campa DO CHEMISTRY Final Resul t [facility] [address] [place] [address], [facility] [address] [place] [address] * XR DXA BONE DENSITY 2 SITES [...] exercise. Repeat scan recommended in 3-5 years. Hadyee Eugene PA-C [facility] 01/12/2023 Narrative 01/12/2023 2:08 PM CDT For Patients: Results are automatically released to your Via ([employer]) account once available, in compliance with federal regulations. This means that you may see your results before your provider has had a chance to review them. Please allow 2-3 business days for your provider to comment on the results. XR DXA Bone Mineral Density (BMD) EXAM LOCATION: [facility] [address] [facility] [address] PATIENT NAME: Shoshana Vazquez DATE OF : 1935 EXAM DATE: 01/04/2023 REQUESTING PROVIDER: Trav Cisse MD GENDER AT : female HEIGHT: 5' 2.25 (09/30/2022) WEIGHT: 177 lb 12.8 oz (12/21/2022) MENOPAUSAL STATUS: Postmenopausal [...] two scanners are made by the same vibration engineer. PROCEDURE: Dual-energy x-ray absorptiometry performed with routine [...] + 5.4 Change from prior in 2020: Increase 2.9%. RESULTS FEMUR Left femoral neck BMD: 1.055 g/cm2 T-Score: + 0.1 Z-Score: + 2.3 Change from prior in 2020: Increase 13.0%. Right femoral neck BMD: 1.256 g/cm2 T-Score: + 1.6 Z-Score: + 3.7 Change from prior in 2020: Increase 24.1%. Left hip BMD: 1.001 g/cm2 T-Score: + 0.0 Z-Score: + 2.0 Change from prior in 2020: Increase 0.1%. Right hip BMD: 1.000 g/cm2 T-Score: - 0.1 Z-Score: + 1.9 Change from prior in 2020: Increase 6.3%. WHO criteria: Normal: T-score at or above -1 SD Osteopenia: T-score between -1.1 and -2.4 SD Osteoporosis: T-score at or below -2.5 SD FRAX RISK CALCULATION (USED FOR OSTEOPENIA ONLY): 10-year probability of major osteoporotic fracture: 7.1%. 10-year probability of hip fracture: 1.2%. 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 POLST 07/10/2024 Healthcare Directive 11/07/2014 015 * Full Code (Latest Code Status on File) Date Activated Date Inactivated Comments 05/19/2024 4:53 PM 05/26/2024 6:02 PM Question Answer Comments Code Status Discussion: Reviewed Preferences * Full Code Date Activated Date Inactivated Comments 11/09/2014 9:52 AM 11/10/2014 4:05 PM Care Teams Heel Blacker Relationship Specialty Start Date End Date Marcia Campa DO [address] [place] [address] PCP - General Family Practice 07/21/17 Lesli Vergara AuD Audiology 07/19/13 Lew Soliz MD [address] [place] [address] Consulting Physician Cardiology - Electrophysiology 08/10/24
--- NOTE | 2025-05-18 19:47 | ED.GENADULT ---
HPI - General Adult General Chief complaint: Skin/Abscess/Foreign Body Stated complaint: itching arm Time Seen by Provider: 05/18/25 18:13 History of Present Illness HPI narrative: Patient has redness, hives to bilateral forearms starting around 5:30 pm. She is from [facility] . Another resident called 911 when they saw her scratching her arms. Staff did not know that EMS had been called. 89-year-old woman presenting to the emergency department via EMS with concern of rash on her forearms. She believes that she had just started to eat supper and then started to really scratch at her forearms. Apparently another resident called 911 with concern. Shoshana denies any difficulty with throat tightness or difficulty breathing. For irritation is limited to her forearms. Otherwise no new ingestions or medications. No known exposures. No abdominal pain or nausea. Does demonstrate a little bit of difficulty in recall but is clear in description of current symptoms. She denies any itch at this time. No pain. Related Data Home Medications ?Medication ?Instructions ?Recorded ?Confirmed aspirin 81 mg tablet,delayed 81 mg PO DAILY 06/24/22 11/30/24 release [id number] 250 mg-dha 90 1 cap PO QAM 06/24/22 11/30/24 mg-epa 160 wa-rfal-opmh-zeax capsule (Ocuvite Adult 50 Plus) glyburide 5 mg tablet 10 mg PO .BIDAC 02/09/24 11/30/24 levothyroxine 112 mcg tablet 112 mcg PO DAILY 02/09/24 11/30/24 metoprolol succinate 25 mg 25 mg PO DAILY 02/09/24 11/30/24 tablet,extended release 24 hr cholecalciferol (vitamin D3) 50 50 mcg PO DAILY 05/18/24 11/30/24 mcg (2,000 unit) capsule empagliflozin 10 mg tablet 10 mg PO DAILY 05/18/24 11/30/24 (Jardiance) valsartan 80 mg tablet 80 mg PO DAILY 05/18/24 11/30/24 rosuvastatin 20 mg tablet (Crestor) 20 mg PO DAILY 07/19/24 11/30/24 ibuprofen 200 mg tablet (Advil) 400 mg PO Q8H 08/03/24 11/30/24 nitroglycerin 0.4 mg sublingual 0.4 mg sublingual Q5M PRN 08/03/24 11/30/24 tablet (Nitrostat) Previous Rx's ?Medication ?Instructions ?Recorded sennosides 8.6 mg capsule (senna) 8.6 mg PO DAILY PRN constipation 07/20/24 #90 caps Allergies Allergy/AdvReac Type Severity Reaction Status Date / Time D and C yellow no.10 Allergy Verified 11/30/24 14:05 hydrochlorothiazide AdvReac Headache Verified 11/30/24 14:05 metformin AdvReac Verified 11/30/24 14:05 Review of Systems Status of ROS: Reports: 6 or more systems reviewed and unremarkable except as noted in History and below [facility] Medical History Cancer of right breast ?C50.911 - Malignant neoplasm of unspecified site of right female breast (ICD-10) Osteoarthritis of left knee ?M17.12 - Unilateral primary osteoarthritis, left knee (ICD-10) Osteoarthritis of right hip ?M16.11 - Unilateral primary osteoarthritis, right hip (ICD-10) Osteoarthritis of right shoulder ?M19.011 - Primary osteoarthritis, right shoulder (ICD-10) Arthritis of right acromioclavicular joint ?M19.011 - Primary osteoarthritis, right shoulder (ICD-10) Osteoarthritis of left shoulder ?M19.012 - Primary osteoarthritis, left shoulder (ICD-10) Left rotator cuff tear arthropathy ?M75.102 - Unspecified rotator cuff tear or rupture of left shoulder, not specified as traumatic (ICD-10) ?M12.812 - Other specific arthropathies, not elsewhere classified, left shoulder (ICD-10) Memory loss ?R41.3 - Other amnesia (ICD-10) Supraventricular tachycardia ?I47.1 - Supraventricular tachycardia (ICD-10) Thyroid cancer ?C73 - Malignant neoplasm of thyroid gland (ICD-10) Right foot injury (~2003) ?S99.921A - Unspecified injury of right foot, initial encounter (ICD-10) Diverticulitis ?K57.92 - Diverticulitis of intestine, part unspecified, without perforation or abscess without bleeding (ICD-10) Surgical History H/O 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) History of carpal tunnel surgery of left wrist (~1990) ?Z98.890 - Other specified postprocedural states (ICD-10) History of carpal tunnel surgery of right wrist (~1988) ?Z98.890 - Other specified postprocedural states (ICD-10) Social History What is your current living situation?: I presently have a place to live Problems where you live: no known problems Problems where you live details: NA In the past 12 months, utilities in danger of being shut off: no In past 12 months, lack of transportation kept you from medical appts, meetings, work, or getting things needed for daily living: no In the past 12 mos, have been you worried that your food would run out before you had money to buy more?: never true In the past 12 mos, the food you bought just didn't last and you didn't have money to buy more?: never true Highest level of school completed/degree received: high school graduate Smoking Status: Never smoker Do you use any of these nicotine containing products: None Second hand tobacco smoke exposure: No How often do you have a drink containing alcohol: never How often do you have six or more drinks on one occasion: Never AUDIT-C Alcohol total score: 0 Non-prescribed substance use: denies use Caffeine: Yes How often does anyone, including family, friends and others, physically hurt you: never How often does anyone, including family, friends and others, insult or talk down to you: never How often does anyone, including family, friends and others, threaten you with harm: never How often does anyone, including family, friends and others, scream or curse at you: never service: No Exam Narrative: Exam Narrative: Pleasant. NAD. Breathing easily. No stridor. Lungs are clear. Heart in mildly elevated rate and regular rhythm. No murmur noted. Oropharynx is unremarkable. Examination of her skin reveals no rashes other than some faint urticarial eruptions on bilateral inner forearms with a little bit of spread into the antecubital fossa. On the left forearm though there was some linear superficial cuts. Not actively bleeding now. She does have some intradermal bruising right forearm greater than left. Examination of the fingernails of the right hand does show the 4th nail with a rather sharp spur of sorts and the 5th fingernail Ms. long and sharp with some dried blood underneath. Const: Vital Signs, click to edit/add: Vital Signs - 24 hr 05/18/25 18:20 Temperature 97.4 F L Pulse Rate [Pulse Oximeter] 93 Respiratory Rate 18 Blood Pressure [Ri ght Upper Arm] 174/91 H Pulse Oximetry 92 Oxygen Delivery Me thod Room Air Documenting provider has reviewed patient's vital signs: yes Course Vital Signs Vital signs: Initial Vital Signs Temperature 97.4 F L 05/18/25 18:20 Temperature Source Temporal Artery Scan 05/18/25 18:20 Pulse Rate 93 05/18/25 18:20 Respiratory Rate 18 05/18/25 18:20 Blood Pressure 174/91 H 05/18/25 18:20 Blood Pressure Mean 118 H 05/18/25 18:20 Blood Pressure Position Sitting 05/18/25 18:20 Pulse Oximetry 92 05/18/25 18:20 Oxygen Delivery Method Room Air 05/18/25 18:20 Vital Signs Temperature 97.4 F L 05/18/25 18:20 Pulse Rate 93 05/18/25 18:20 Respiratory Rate 18 05/18/25 18:20 Blood Pressure 174/91 H 05/18/25 18:20 Pulse Oximetry 92 05/18/25 18:20 Oxygen Delivery Method Room Air 05/18/25 18:20 Temperature 97.4 F L 05/18/25 18:20 Pulse Rate 93 05/18/25 18:20 Respiratory Rate 18 05/18/25 18:20 Blood Pressure 174/91 H 05/18/25 18:20 Pulse Oximetry 92 05/18/25 18:20 Oxygen Delivery Method Room Air 05/18/25 18:20 Medications Administered Medications: Discontinued Medications Generic Name Dose Route Start Last Admin Trade Name Freq PRN Reason Stop Dose Admin Diphenhydramine HCl 25 mg 05/18/25 19:07 05/18/25 19:14 Diphenhydramine 25 Mg Capsule PO 05/18/25 19:08 25 mg ONCE ONE Administration Medical Decision Making MDM Narrative Medical decision making narrative: Symptoms appear to be limited at this time. I would offer diphenhydramine here. No further red flags I think to prompt further evaluation at this time. Unclear etiology. I did also propose trimming what were the nails that likely did the most damage. She is a little reluctant but ultimately agrees. Did trim down both nails as mentioned above. Dressed wounds with bacitracin ointment and gauze wrap. Given 25 mg of diphenhydramine. See patient discharge plan for further discussion Other than where you have actually broken the skin, for continued itch over the next few days, could apply 3 times a day hydrocortisone cream. If that is not effective, could also try diphenhydramine like we gave you here but I would not take this regularly dosed beyond a couple of days. It can be sedating and cause other problems. I would keep your forearms covered if you seem prone to itching. Further scratching is only going to make things worse. You might also try cold packs to relieve your discomfort. If this seems to be worsening quickly, broadly or you have any sensation of associated throat tightness, difficulty swallowing, difficulty breathing, would take diphenhydramine dosing and then return to the emergency department. Medical Records Medical records reviewed: Yes I reviewed the patient's medical records Discharge Plan Discharge Clinical Impression: Itch, Urticaria, Superficial abrasion Patient Disposition: Home w/ Parent or Adult Condition: Improved Additional Instructions: Other than where you have actually broken the skin, for continued itch over the next few days, could apply 3 times a day hydrocortisone cream. If that is not effective, could also try diphenhydramine like we gave you here but I would not take this regularly dosed beyond a couple of days. It can be sedating and cause other problems. I would keep your forearms covered if you seem prone to itching. Further scratching is only going to make things worse. You might also try cold packs to relieve your discomfort. If this seems to be worsening quickly, broadly or you have any sensation of associated throat tightness, difficulty swallowing, difficulty breathing, would take diphenhydramine dosing and then return to the emergency department. Prescriptions: No Action ibuprofen [Advil] 200 mg tablet 400 mg PO Q8H nitroglycerin [Nitrostat] 0.4 mg tablet, sublingual 0.4 mg sublingual Q5M PRN Rx Instructions: do not exceed 3 doses per episode Ocuvite Adult 50 Plus 250 mg (90 mg-160 mg) capsule 1 cap PO QAM aspirin 81 mg tablet,delayed release (DR/EC) 81 mg PO DAILY glyburide 5 mg tablet 10 mg PO .BIDAC levothyroxine 112 mcg tablet 112 mcg PO DAILY metoprolol succinate 25 mg tablet extended release 24 hr 25 mg PO DAILY Jardiance 10 mg tablet 10 mg PO DAILY valsartan 80 mg tablet 80 mg PO DAILY cholecalciferol (vitamin D3) 50 mcg (2,000 unit) capsule 50 mcg PO DAILY rosuvastatin [Crestor] 20 mg tablet 20 mg PO DAILY senna 8.6 mg capsule 8.6 mg PO DAILY PRN (Reason: constipation) Qty: 90 0RF Follow Up/Referrals: Marcia Campa DO [Primary Care Provider, Family Practice] Stand Alone Forms: [facility] Info Instructions
== END 2025-05-18 19:52 | disposition home or self-care (01) ==
PROVIDERS: Emergency Provider Family Medicine; PCP Family Medicine
DX: L50.9 Urticaria, unspecified (principal); L29.9 Pruritus, unspecified
CPT/HCPCS: 99283; 99284; A9270